=== PATIENT | male | born 1975 | race Two or more races ===

== ENCOUNTER 2016-08-12 14:29 | Emergency (ER) | payer MEDICARE, OTHER ==
[~2016-08-12] VITALS: Wt 74.5 kg
[~2016-08-12 14:29] MED LIST: ATOR40TA68 PO; ESOM40CA PO; FAMO20TA18 PO; FOLI-49 PO; GABA300C16 PO; MAGN400T28 PO; METO-448 PO; MYCO360T PO; OMEP20CA16 PO; SERT-165 PO; TACR1CAP26 PO; TAMS0.4C2 PO; ZOLP10TA PO
[2016-08-12] MEDS ORDERED: ONDANSETRON 4 MG INJ IV STA (15:25)
[2016-08-12] MEDS ORDERED: morphine 4 MG/ML VIAL IV STA (15:25)
[2016-08-12] MEDS ORDERED: SOD CHLORIDE 0.9% 1,000 ML IV ONE (15:30)
[2016-08-12 15:56] LABS: BASOPHILS % 0.4 % (0.0-2.0); EOSINOPHILS # 0.1 10^3/ul (0.0-0.5); EOSINOPHILS % 0.8 % (0.0-7.0); HEMATOCRIT 45.4 % (42.0-52.0); HEMOGLOBIN 15.3 g/dl (14.0-18.0); LYMPHOCYTES # 1.7 10^3/ul (0.8-2.9); LYMPHOCYTES % 17.9 % (15.0-51.0); MEAN CORPUSCULAR HEMOGLOBIN 28.7 pg (29.0-33.0); MEAN CORPUSCULAR HGB CONC 33.8 g/dl (32.0-37.0); MEAN PLATELET VOLUME 8.6 fl (7.4-10.4); MONOCYTE # 0.6 10^3/ul (0.3-0.9); MONOCYTES % 6.1 % (0.0-11.0); NEUTROPHIL # 7.1 10^3/ul (1.6-7.5); NEUTROPHILS % 74.8 % (39.0-77.0); PLATELET COUNT 287 10^3/UL (140-440); RED BLOOD COUNT 5.34 10^6/ul (4.70-6.10); RED CELL DISTRIBUTION WIDTH 14.6 % (11.5-14.5); UNCORRECTED WBC 9.5 10^3/ul (4.8-10.8); WHITE BLOOD COUNT 9.5 10^3/ul (4.8-10.8)
[2016-08-12 15:57] LABS: ADD UMIC NO; URINE BILIRUBIN (Dip) NEGATIVE (NEGATIVE); URINE BLOOD (Dip) NEGATIVE (NEGATIVE); URINE COLOR LT. YELLOW (YELLOW); URINE GLUCOSE (Dip) NEGATIVE (NEGATIVE); URINE KETONES (Dip) NEGATIVE (NEGATIVE); URINE LEUKOCYTE ESTERASE (Dip) NEGATIVE (NEGATIVE); URINE NITRITE (Dip) NEGATIVE (NEGATIVE); URINE TOTAL PROTEIN (Dip) NEGATIVE (NEGATIVE); URINE UROBILINOGEN (Dip) 0.2 E.U./dL (0.1-1.0)
[2016-08-12 15:58] LABS: CONDITION 1; LH ANALYZER COMMENTS 1
[2016-08-12 16:04] LABS: ALBUMIN 4.6 g/dl (3.3-4.9)
[2016-08-12 16:05] LABS: POTASSIUM 4.9 mmol/L (3.5-5.1)
[2016-08-12 16:07] LABS: ALBUMIN/GLOBULIN RATIO 1.24; BILIRUBIN,INDIRECT 0.4 mg/dl (0-1.1); BILIRUBIN,TOTAL 0.4 mg/dl (0.2-1.3); CREATININE 1.17 mg/dl (0.61-1.24); TOTAL PROTEIN 8.3 g/dl (6.1-8.1)
[2016-08-12 16:08] LABS: CALCIUM 9.8 mg/dl (8.4-10.2)
--- NOTE | 2016-08-12 17:04 | RADRPT ---
PROCEDURE: CT Abdomen and Pelvis without contrast. CLINICAL INDICATION: Abdominal pelvic pain. Nausea. Right flank pain. TECHNIQUE: CT scan of the abdomen and pelvis without contrast was performed on a multidetector hig h-resolution CT scanner. The patient was scanned without intravenous contrast. Coronal and sagittal reformatted images were obtained from the axial source images. Images were reviewed on a high-resol [employer] PACS workstation. The total exam CTDI equals 10.27 mGy and the total exam DLP equals 641.48 mG y-cm. One or more of the following dose reduction techniques were used: - Automated exposure control. - Adjustment of the mA and/or kV according to patient size. - Use of iterative reconstruction technique. COMPARISON: None. FINDINGS: CT abdomen: The lung bases are clear. The heart size is normal, without pericardial thickening or effusion. De nse calcified pleural plaque is seen in the right lung base. The liver is normal in size and densit y without focal mass or intrahepatic biliary dilatation. The spleen is normal in size and homogeneo us in density. The stomach is distended and filled with food and ingested material, but is otherwis e grossly unremarkable. The pancreas as visualized is normal. The gallbladder and biliary tree are unremarkable and there is no evidence for biliary dilatation. The adrenal glands are symmetric and normal. The [place] kidneys are symmetrically shrunken and atrophic, severe in degree. Tiny subtle punctate 2 mm right renal calculus is identified. No obstructive uropathy or mass lesion is seen. The aorta is of normal caliber. Aortic vascular calcifications are present. There is no retroperit andrea lymphadenopathy. The tj hepatis region is clear. The bowel and mesentery, as visualized, are equally unremarkable. Mesh is seen along the midline anterior abdominal wall at the periumbilica l level, likely due to prior hernia repair. CT pelvis: The small bowel loops situated within the pelvis are unremarkable. The appendix is normal. Right low er quadrant transplant kidney is identified, unremarkable in appearance. The transplant ureter is e qually unremarkable without evidence for hydronephrosis. The pelvic organs are normal. The pelvic sidewalls and inguinal regions are clear. The sigmoid colon and rectum are unremarkable. No mass o r adenopathy is seen. No free fluid is present. No acute inflammation is identified at this time. C alcifications are seen within the testes bilaterally. The surrounding osseous structures are unremarkable. No osteolytic or osteoblastic lesion is detect ed. IMPRESSION: 1. The [place] kidneys are shrunken and atrophic. 2. No mass, lymphadenopathy, or focal acute inflammatory process. 3. Unremarkable appearance of a RLQ transplant kidney. RPTAT: HMJB .Marcelo Perera MD, Date Time Electronically viewed and signed by .Marcelo Perera MD, on 08/12/2016 17:03 .B/
--- NOTE | 2016-08-12 18:49 | RADRPT ---
PROCEDURE: Scrotal ultrasound CLINICAL INDICATION: Testicular pain, abdominal pain radiating to right testis TECHNIQUE: Scrotal ultrasound was performed with sagittal and transverse views. Martinez scale and co luis felipe imaging was performed. Images were reviewed on high resolution PACS monitors. COMPARISON: 12/23/2015 FINDINGS: The right testicle measures 3.4 x 1.4 x 2.4 cm cm in dimension. Extensive testicular microlithiasis again seen. There is normal size and morphology of the right testicle with normal blood flow. The r ight epididymis is normal. No hydrocele is identified. The soft tissues are unremarkable. No mass or cyst or other abnormality is seen. There is no evidence for varicocele. The left testicle measures 3.3 x 1.7 x 2.1 cm cm in dimension. Extensive testicular microlithiasis a gain seen. There is normal size and morphology of the left testicle with normal blood flow. There is a 8 mm epididymal cyst in the left epididymal head. No hydrocele is identified. The soft tissue s are unremarkable. No mass or other abnormality is present. There is no evidence for a varicocele. 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 8 mm left epididymal cyst. No evidence of testicular torsion. Follow-up testicular ultrasound in 6 months is recommended. RPTAT: HJES .Pravin Mccarthy MD, Date Time Electronically viewed and signed by .Pravin Mccarthy MD, MD on 08/12/2016 18:49 .S/
[2016-08-12] MEDS ORDERED: ONDA4TAB8 PO (19:06)
[2016-08-12] MEDS ORDERED: CIPR500T4 PO (19:06)
[2016-08-12] MEDS ORDERED: HYDR-906 PO (19:07)
--- NOTE | 2016-08-12 19:14 | ERD ---
ER Documentation Chief Complaint Date/Time DATE: 08/12/16 TIME: 19:09 Chief Complaint RUQ ABD PAIN, NAUSEA HPI Patient is a 40-year-old male who presents to the ED with right lower quadrant abdominal pain, nausea and testicular pain. Patient states that he has a history of kidney transplant 2009. He states that he developed pain last night after he was laying down. He describes the pain as sharp in his right lower quadrant. He has not had a change in appetite, denies fever or chills. Denies vomiting or constipation. He states that he has taken [place] with some relief. He also complains of burning with urination. He denies any abnormal penile discharge. He is sexually active in a monogamous relationship. No history of STDs. He has had past UTIs. He also states that he has right testicular pain. He complains of minimal swelling in his right testicle. Denies chest pain, cough, shortness of breath or difficulty breathing. Denies leg pain or swelling. Denies headache or dizziness or weakness. ROS All systems reviewed and are negative except as per history of present illness. Medications Home Meds Active Scripts Hydrocodone/Acetaminophen ([place] 5-325 Tablet) 1 Each Tablet, 1 TAB PO Q6H Y for PAIN, #6 TAB Prov:LO RIOS PA-C 08/12/16 Ondansetron Hcl* (Zofran*) 4 Mg Tablet, 4 MG PO Q6H for NAUSEA AND/OR VOMITING, #30 TAB Prov:LO RIOS PA-C 08/12/16 Ciprofloxacin Hcl* (Ciprofloxacin Hcl*) 500 Mg Tablet, 500 MG PO BID for 7 Days , TAB Prov:LO RIOS PA-C 08/12/16 Atorvastatin* (Atorvastatin*) 40 Mg Tablet, 40 MG PO HS for 30 Days, TAB Prov:NADEEM GUO 06/12/16 Metoprolol Tartrate* (Lopressor*) 25 Mg Tab, 25 MG PO BID for 30 Days, TAB Prov:NADEEM GUO 06/12/16 Reported Medications Esomeprazole Mag Trihydrate (Nexium) 40 Mg Capsule., 40 MG PO BID, #60 CAP 06/18/16 Omeprazole* (Omeprazole*) 20 Mg Capsule., 20 MG PO DAILY, #30 CAP 06/18/16 Mycophenolate Sodium* (Myfortic*) 360 Mg Tablet.dr, 360 MG PO BID, TAB 06/18/16 Tacrolimus* (Prograf*) 1 Mg Capsule, 1 MG PO QHS, CAP 06/18/16 Tacrolimus* (Prograf*) 1 Mg Capsule, 2 MG PO QAM, CAP 06/18/16 Gabapentin* (Gabapentin*) 300 Mg Capsule, 300 MG PO TID, #90 CAP 06/08/16 Tamsulosin Hcl* (Tamsulosin Hcl*) 0.4 Mg Cap.er.24h, 0.4 MG PO HS, CAP 03/27/15 Sertraline Hcl* (Sertraline Hcl*) 100 Mg Tablet, 100 MG PO DAILY, TAB 03/27/15 Magnesium Oxide* (Magnesium Oxide*) 400 Mg Tablet, 400 MG PO BID, TAB 03/27/15 Zolpidem Tartrate* (Ambien*) 10 Mg Tablet, 10 MG PO HS Y for SLEEP, TAB 12/18/13 Folic Acid* (Folic Acid*) 1 Mg Tablet, 1 MG PO DAILY, TAB 12/18/13 Famotidine* (Famotidine*) 20 Mg Tablet, 20 MG PO DAILY 10/15/12 Allergies Allergies: Coded Allergies: No Known Allergy (Verified , 06/18/16) PMhx/Soc Medical and Surgical Hx: pt denies Medical Hx, pt denies Surgical Hx History of Surgery: Yes (r kidney transplant 2009) Anesthesia Reaction: No Hx Neurological Disorder: Yes (seizures) Hx Respiratory Disorders: No Hx Cardiac Disorders: Yes (htn) Hx Psychiatric Problems: No ( depression) Hx Miscellaneous Medical Probl: Yes (chronic diarrhea) Hx Alcohol Use: No Hx Substance Use: No Hx Tobacco Use: No Smoking Status: Never smoker Physical Exam Vitals Vital Signs Date Time Temp Pulse Resp B/P Pulse Ox O2 Delivery O2 Flow Rate FiO2 08/12/16 19:24 98.1 63 19 123/86 96 Room Air 08/12/16 14:35 98.7 108 17 118/80 98 Physical Exam GENERAL: Well-developed, well-nourished male. Appears in no acute distress. HEAD: Normocephalic, atraumatic. LUNG: Clear to auscultation bilaterally. No rhonchi, wheezing, rales or coarse breath sounds. HEART: Regular rate and rhythm. No murmurs, rubs or gallops. ABDOMEN: No scars, ecchymosis or rashes noted. Soft, and nondistended. Positive bowel sounds in all four quadrants. No rebound tenderness, no guarding. McBurney s point tenderness. No CVA tenderness. tenderness in mid abdominal region. : slight testicular right pain. no redness or erythema or drainage. BACK: No midline tenderness. Extremities: Equal pulses bilaterally. No peripheral clubbing, cyanosis or edema. No unilateral leg swelling. NEUROLOGIC: Alert and oriented. Moving all four extremities. 5/5 strength in all extremities. Normal speech. Steady gait. SKIN: Normal color. Warm and dry. No rashes or lesions. Capillary refill < 2 seconds Result Diagram: 08/12/16 1500 08/12/16 1500 Results 24 hrs Laboratory Tests Test 08/12/16 15:00 Alanine Aminotransferase (ALT/SGPT) 33IU/L Albumin 4.6g/dl Albumin/Globulin Ratio 1.24 Alkaline Phosphatase 101IU/L Anion Gap 18 Aspartate Amino Transf (AST/SGOT) 26IU/L Basophils # 0.010^3/ul Basophils % 0.4% Blood Morphology Comment Blood Urea Nitrogen 16mg/dl Calcium Level 9.8mg/dl Carbon Dioxide Level 25mmol/L Chloride Level 104mmol/L Creatinine 1.17mg/dl Direct Bilirubin 0.00mg/dl Eosinophils # 0.110^3/ul Eosinophils % 0.8% Globulin 3.70g/dl Glucose Level 105mg/dl Hematocrit 45.4% Hemoglobin 15.3g/dl Indirect Bilirubin 0.4mg/dl Lipase 137U/L Lymphocytes # 1.710^3/ul Lymphocytes % 17.9% Mean Corpuscular Hemoglobin 28.7pg Mean Corpuscular Hemoglobin Concent 33.8g/dl Mean Corpuscular Volume 85.0fl Mean Platelet Volume 8.6fl Monocytes # 0.610^3/ul Monocytes % 6.1% Neutrophils # 7.110^3/ul Neutrophils % 74.8% Nucleated Red Blood Cells # 0.010^3/ul Nucleated Red Blood Cells % 0.0/100WBC Platelet Count 97752^3/UL Potassium Level 4.9mmol/L Red Blood Count 5.3410^6/ul Red Cell Distribution Width 14.6% Sodium Level 142mmol/L Total Bilirubin 0.4mg/dl Total Protein 8.3g/dl Urine Bilirubin NEGATIVE Urine Clarity CLEAR Urine Color LT. YELLOW Urine Glucose NEGATIVE% Urine Hemoglobin NEGATIVE Urine Ketones NEGATIVE Urine Leukocyte Esterase NEGATIVE Urine Nitrite NEGATIVE Urine Specific [place] 1.010 Urine Total Protein NEGATIVE Urine Urobilinogen 0.2 E.U./dL Urine pH 7.0 White Blood Count 9.510^3/ul Current Medications Medications (Trade) Dose Ordered Sig/Marcelino Route PRN Reason Start Time Stop Time Status Last Admin Dose Admin Morphine Sulfate (morphine) 4 mg ONCE STAT IV 08/12/16 15:25 08/12/16 15:28 DC 08/12/16 15:43 Ondansetron HCl 4 mg 4 mg ONCE STAT IV 08/12/16 15:25 08/12/16 15:28 DC 08/12/16 15:43 Sodium Chloride (NS) 1,000 ml @ 1,000 mls/hr Q1H ONCE IV 08/12/16 15:30 08/12/16 16:29 DC 08/12/16 15:43 Procedures/MDM ER COURSE: I kept the patient and/or family informed of laboratory and diagnostic imaging results throughout the emergency room course. EKG, MONITORS, & DIAGNOSTIC IMAGING: [place] [id number] Radiology Main Line: [phone] DIAGNOSTIC IMAGING REPORT Patient: HANNA MONTERO : 1975 Age: 40 Sex: M MR #: [id number] DOS: 08/12/16 1709 Ordering MD: LO RIOS PA-C Location: [facility] Room/Bed: PROCEDURE: Scrotal ultrasound CLINICAL INDICATION: Testicular pain, abdominal pain radiating to right testis TECHNIQUE: Scrotal ultrasound was performed with sagittal and transverse views. Martinez scale and color imaging was performed. Images were reviewed on high resolution PACS monitors. COMPARISON: 12/23/2015 FINDINGS: The right testicle measures 3.4 x 1.4 x 2.4 cm cm in dimension. Extensive testicular microlithiasis again seen. There is normal size and morphology of the right testicle with normal blood flow. The right epididymis is normal. No hydrocele is identified. The soft tissues are unremarkable. No mass or cyst or other abnormality is seen. There is no evidence for varicocele. The left testicle measures 3.3 x 1.7 x 2.1 cm cm in dimension. Extensive testicular microlithiasis again seen. There is normal size and morphology of the left testicle with normal blood flow. There is a 8 mm epididymal cyst in the left epididymal head. No hydrocele is identified. The soft tissues are unremarkable. No mass or other abnormality is present. There is no evidence for a varicocele. 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 8 mm left epididymal cyst. No evidence of testicular torsion. Follow-up testicular ultrasound in 6 months is recommended. RPTAT: HJES .Pravin Mccarthy MD, Date Time Electronically viewed and signed by .Pravin Mccarthy MD, MD on 08/12/2016 18:49 .S/ CC: LO RIOS PA-C [place] [id number] Radiology Main Line: [phone] DIAGNOSTIC IMAGING REPORT Patient: HANNA MONTERO : 1975 Age: 40 Sex: M MR #: [id number] DOS: 08/12/16 1525 Ordering MD: LO RIOS PA-C Location: [facility] Room/Bed: PROCEDURE: CT Abdomen and Pelvis without contrast. CLINICAL INDICATION: Abdominal pelvic pain. Nausea. Right flank pain. TECHNIQUE: CT scan of the abdomen and pelvis without contrast was performed on a multidetector high-resolution CT scanner. The patient was scanned without intravenous contrast. Coronal and sagittal reformatted images were obtained from the axial source images. Images were reviewed on a high-resolution PACS workstation. The total exam CTDI equals 10.27 mGy and the total exam DLP equals 641.48 mGy-cm. One or more of the following dose reduction techniques were used: - Automated exposure control. - Adjustment of the mA and/or kV according to patient size. - Use of iterative reconstruction technique. COMPARISON: None. FINDINGS: CT abdomen: The lung bases are clear. The heart size is normal, without pericardial thickening or effusion. Dense calcified pleural plaque is seen in the right lung base. The liver is normal in size and density without focal mass or intrahepatic biliary dilatation. The spleen is normal in size and homogeneous in density. The stomach is distended and filled with food and ingested material , but is otherwise grossly unremarkable. The pancreas as visualized is normal. The gallbladder and biliary tree are unremarkable and there is no evidence for biliary dilatation. The adrenal glands are symmetric and normal. The [place] kidneys are symmetrically shrunken and atrophic, severe in degree. Tiny subtle punctate 2 mm right renal calculus is identified. No obstructive uropathy or mass lesion is seen. The aorta is of normal caliber. Aortic vascular calcifications are present. There is no retroperitoneal lymphadenopathy. The tj hepatis region is clear. The bowel and mesentery, as visualized, are equally unremarkable. Mesh is seen along the midline anterior abdominal wall at the periumbilical level, likely due to prior hernia repair. CT pelvis: The small bowel loops situated within the pelvis are unremarkable. The appendix is normal. Right lower quadrant transplant kidney is identified, unremarkable in appearance. The transplant ureter is equally unremarkable without evidence for hydronephrosis. The pelvic organs are normal. The pelvic sidewalls and inguinal regions are clear. The sigmoid colon and rectum are unremarkable. No mass or adenopathy is seen. No free fluid is present. No acute inflammation is identified at this time. Calcifications are seen within the testes bilaterally. The surrounding osseous structures are unremarkable. No osteolytic or osteoblastic lesion is detected. IMPRESSION: 1. The [place] kidneys are shrunken and atrophic. 2. No mass, lymphadenopathy, or focal acute inflammatory process. 3. Unremarkable appearance of a RLQ transplant kidney. RPTAT: HMJB .Marcelo Perera MD, Date Time Electronically viewed and signed by .Marcelo Perera MD, MD on 08/12/2016 17:03 .B/ CC: LO RIOS PA-C PROCEDURES: IV fluids, morphine, Zofran. Patient tolerated occasional with no adverse reaction. Patient seen improvement in symptoms per LAB INTERPRETATION: CBC showed no evidence of systemic infection or severe anemia. CMP showed no evidence of electrolyte abnormalities, severe acidosis, alkalosis , renal failure, or liver disease. Lipase showed no evidence of acute pancreatitis. UA showed no evidence of acute infection or hematuria. MEDICAL DECISION MAKING: This is a 40-year-old male who presents with abdominal pain and testicular pain. Vital signs were reviewed. Patient is afebrile. Patient is not hypoxic. Patient is not toxic or ill-appearing. Patient has abdominal pain of uncertain etiology. Low suspicion for ACS, AAA, perforated ulcer, bowel obstruction, cholecystitis, choledocholithiasis, cholangitis, pancreatitis, hepatic abscess, appendicitis, diverticulitis. Low suspicion for ACS, PE, AAA, dissection, DVT. Patient also has likely epidiymitis. low suspicion for pyelonephritis, UTI, nephrolithiasis, appendicitis, testicular torsion, incarcerated or strangulated hernia. DISCHARGE: At this time, patient is stable for discharge and outpatient management with no new complaints during the ER course. Patient was sent home with ciprofloxacin, Zofran and [place]. I explained results to patient and advised him to follow up with a urologist regarding his testiclar pain and microlithiasis. Repeat ultrasound in 6 months is recommended. Patient will be discharged home with instructions to recheck for new or worsening symptoms such as fever, nausea, weakness, LOC and to follow up with primary care in the next 1-2 days. Patient was advised to return to the ER for any new or worsening symptoms. Plan was discussed and patient and/or family understands and agrees. Home instructions were given. Departure Diagnosis: Primary Impression: Testicular pain, right Additional Impression: Abdominal pain Abdominal location: unspecified location Qualified Code: R10.9 - Abdominal pain, unspecified location Condition: Stable Patient Instructions: Abdominal Pain, Epididymitis Additional Instructions: Call your primary care doctor TOMORROW for an appointment during the next 1-2 days.See the doctor sooner or return here if your condition worsens before your appointment time. LO RIOS PA-C Aug 12, 2016 19:14
[2016-08-12 19:24] VITALS: BP 123/86; PULSE 63; RESP 19; TEMP 98.1
== END 2016-08-12 19:25 | disposition home or self-care (01) ==
LOC: FTE 14:29
DX: N50.811 Right testicular pain (principal); R10.31 Right lower quadrant pain; R11.0 Nausea; I10 Essential (primary) hypertension
CPT/HCPCS: 36415; 74176; 76870; 80053; 81003; 83690; 85025; 96374; 96375; 99285; J2270; J2405; J7030

== ENCOUNTER 2016-09-07 03:35 | Emergency (ER) | payer MEDICARE ==
[~2016-09-07] VITALS: Ht 165.1 cm; Wt 76.5 kg
[~2016-09-07 03:35] MED LIST changes: +CIPR500T4 PO; +HYDR-906 PO; +ONDA4TAB8 PO
[2016-09-07 03:41] VITALS: Ht 165.1 cm; Wt 76.5 kg
[2016-09-07] MEDS ORDERED: ONDANSETRON 4 MG INJ IV STA (06:33)
[2016-09-07] MEDS ORDERED: FAMOTIDINE 20 MG INJ IV STA (06:33)
[2016-09-07] MEDS ORDERED: morphine 4 MG/ML VIAL IV STA (06:33)
[2016-09-07 07:26] LABS: ADD UMIC NO; URINE BILIRUBIN (Dip) NEGATIVE (NEGATIVE); URINE BLOOD (Dip) NEGATIVE (NEGATIVE); URINE COLOR LT. YELLOW (YELLOW); URINE GLUCOSE (Dip) NEGATIVE (NEGATIVE); URINE KETONES (Dip) NEGATIVE (NEGATIVE); URINE LEUKOCYTE ESTERASE (Dip) NEGATIVE (NEGATIVE); URINE NITRITE (Dip) NEGATIVE (NEGATIVE); URINE TOTAL PROTEIN (Dip) NEGATIVE (NEGATIVE); URINE UROBILINOGEN (Dip) 0.2 E.U./dL (0.1-1.0)
[2016-09-07 07:31] LABS: BASOPHILS % 0.3 % (0.0-2.0); EOSINOPHILS # 0.2 10^3/ul (0.0-0.5); EOSINOPHILS % 1.6 % (0.0-7.0); HEMATOCRIT 47.8 % (42.0-52.0); HEMOGLOBIN 16.2 g/dl (14.0-18.0); LYMPHOCYTES # 2.5 10^3/ul (0.8-2.9); LYMPHOCYTES % 22.4 % (15.0-51.0); MEAN CORPUSCULAR HEMOGLOBIN 29.1 pg (29.0-33.0); MEAN CORPUSCULAR HGB CONC 33.9 g/dl (32.0-37.0); MEAN CORPUSCULAR VOLUME 85.8 fl (82.0-101.0); MEAN PLATELET VOLUME 9.3 fl (7.4-10.4); MONOCYTES % 8.5 % (0.0-11.0); NEUTROPHIL # 7.6 10^3/ul (1.6-7.5); NEUTROPHILS % 67.2 % (39.0-77.0); PLATELET COUNT 252 10^3/UL (140-440); RED BLOOD COUNT 5.57 10^6/ul (4.70-6.10); RED CELL DISTRIBUTION WIDTH 14.2 % (11.5-14.5); UNCORRECTED WBC 11.3 10^3/ul (4.8-10.8); WHITE BLOOD COUNT 11.3 10^3/ul (4.8-10.8)
--- NOTE | 2016-09-07 07:36 | RADRPT ---
PROCEDURE: CT Abdomen and Pelvis without contrast. CLINICAL INDICATION: Abdominal pain. TECHNIQUE: Routine axial tomographic images of the abdomen and pelvis were obtained from the domes the diaphragm to the symphysis pubis. The patient was scanned withoutoral or intravenous contrast. Coronal and sagittal reformatted images were obtained from the axial source images. Images were re viewed on a high-resolution PACS workstation. The total exam CTDI equals 11.27 mGy and the total exa m DLP equals 707.13 mGy-cm. One or more of the following dose reduction techniques were used: Auto mated exposure control, adjustment of the mA and / or kV according to patient size, or use of iterat jean reconstruction technique. COMPARISON: CT abdomen and pelvis dated 08/12/2016 FINDINGS: The visualized portions of the lung bases are clear. Evaluation of the intra-abdominal solid or sher is somewhat limited on this noncontrast examination. Dystrophic calcifications are seen along the right diaphragm. The liver appears normal in size. There is no intra or extrahepatic biliary d ilatation. The gallbladder is unremarkable by CT criteria. The spleen, pancreas, and adrenal gland s are unremarkable. The kidneys are markedly atrophic. There is a right lower quadrant transplant kidney No renal, ure teral, or bladder calculi are identified. No perinephric inflammatory changes are identified. The u rinary bladder is grossly unremarkable. The bowel demonstrates normal course and caliber. There is no evidence of bowel obstruction. The a ppendix is normal in appearance. The pelvic organs are grossly unremarkable. No intraperitoneal fr ee fluid, free air, or abscess is identified. No retroperitoneal, mesenteric, or inguinal lymphadeno jad is identified. The aorta is normal in caliber. There is a small fat-containing right inguinal hernia. The osseous structures are unremarkable. No significant subcutaneous soft tissue abnormalities are seen. IMPRESSION: 1. Limited noncontrast CT of the abdomen and pelvis. No acute intra-abdominal abnormality identifi ed. 2. Right lower quadrant transplant kidney with marked atrophy of the [place] kidneys. RPTAT: HH .Dory Soto MD, MD Date Time Electronically viewed and signed by .Dory Soto MD, on 09/07/2016 07:36 .Stephen
[2016-09-07 07:44] LABS: ALBUMIN 4.6 g/dl (3.3-4.9)
[2016-09-07 07:47] LABS: ALBUMIN/GLOBULIN RATIO 1.27; BILIRUBIN,INDIRECT 0.2 mg/dl (0-1.1); BILIRUBIN,TOTAL 0.2 mg/dl (0.2-1.3); CREATININE 1.18 mg/dl (0.61-1.24); TOTAL PROTEIN 8.2 g/dl (6.1-8.1)
[2016-09-07 07:48] LABS: CALCIUM 9.9 mg/dl (8.4-10.2)
[2016-09-07] MEDS ORDERED: METOCLOPRAMIDE 10 MG INJ IV ONE (08:00)
[2016-09-07 08:23] LABS: CONDITION 1
--- NOTE | 2016-09-07 08:27 | ERD ---
ER Documentation Chief Complaint Date/Time DATE: 09/07/16 TIME: 08:26 Chief Complaint abdominal pain x 2 days. also c/o vomiting/diarrhea HPI This is a 40-year-old male who presents to the emergency room for evaluation of abdominal cramping, diarrhea, nausea and vomiting for the past 2 days. The patient states that he is having watery diarrhea. [id number], no recent travel. The patient states that he came to the ER for evaluation. He is localizing a cramping all over his abdomen. ROS All systems reviewed and are negative except as per history of present illness. Medications Home Meds Active Scripts Hydrocodone/Acetaminophen ([place] 5-325 Tablet) 1 Each Tablet, 1 TAB PO Q6H Y for PAIN, #6 TAB Prov:LO RIOS PA-C 08/12/16 Ondansetron Hcl* (Zofran*) 4 Mg Tablet, 4 MG PO Q6H for NAUSEA AND/OR VOMITING, #30 TAB Prov:LO RIOS PA-C 08/12/16 Ciprofloxacin Hcl* (Ciprofloxacin Hcl*) 500 Mg Tablet, 500 MG PO BID for 7 Days , TAB Prov:LO RIOS PA-C 08/12/16 Atorvastatin* (Atorvastatin*) 40 Mg Tablet, 40 MG PO HS for 30 Days, TAB Prov:NADEEM GUO 06/12/16 Metoprolol Tartrate* (Lopressor*) 25 Mg Tab, 25 MG PO BID for 30 Days, TAB Prov:NADEEM GUO 06/12/16 Reported Medications Esomeprazole Mag Trihydrate (Nexium) 40 Mg Capsule.dr, 40 MG PO BID, #60 CAP 06/18/16 Omeprazole* (Omeprazole*) 20 Mg Capsule.dr, 20 MG PO DAILY, #30 CAP 06/18/16 Mycophenolate Sodium* (Myfortic*) 360 Mg Tablet.dr, 360 MG PO BID, TAB 06/18/16 Tacrolimus* (Prograf*) 1 Mg Capsule, 1 MG PO QHS, CAP 06/18/16 Tacrolimus* (Prograf*) 1 Mg Capsule, 2 MG PO QAM, CAP 06/18/16 Gabapentin* (Gabapentin*) 300 Mg Capsule, 300 MG PO TID, #90 CAP 06/08/16 Tamsulosin Hcl* (Tamsulosin Hcl*) 0.4 Mg Cap.er.24h, 0.4 MG PO HS, CAP 03/27/15 Sertraline Hcl* (Sertraline Hcl*) 100 Mg Tablet, 100 MG PO DAILY, TAB 03/27/15 Magnesium Oxide* (Magnesium Oxide*) 400 Mg Tablet, 400 MG PO BID, TAB 03/27/15 Zolpidem Tartrate* (Ambien*) 10 Mg Tablet, 10 MG PO HS Y for SLEEP, TAB 12/18/13 Folic Acid* (Folic Acid*) 1 Mg Tablet, 1 MG PO DAILY, TAB 12/18/13 Famotidine* (Famotidine*) 20 Mg Tablet, 20 MG PO DAILY 10/15/12 Allergies Allergies: Coded Allergies: No Known Allergy (Verified , 09/07/16) PMhx/Soc History of Surgery: Yes (r kidney transplant 2009) Anesthesia Reaction: No Hx Neurological Disorder: Yes (seizures) Hx Respiratory Disorders: No Hx Cardiac Disorders: Yes (htn) Hx Psychiatric Problems: No ( depression) Hx Miscellaneous Medical Probl: Yes (chronic diarrhea) Hx Alcohol Use: No Hx Substance Use: No Hx Tobacco Use: No Physical Exam Vitals Vital Signs Date Time Temp Pulse Resp B/P Pulse Ox O2 Delivery O2 Flow Rate FiO2 09/07/16 03:41 97.7 92 20 133/91 99 Physical Exam INITIAL VITAL SIGNS: Reviewed by me GENERAL: The patient is well developed and appropriate for usual state of health in no apparent distress HEENT: Pupils equal, round, and reactive to light. EOMI. There is no scleral icterus. NECK: C-spine is soft and supple, there is no meningismus. There is no cervical lymphadenopathy. LUNGS: Clear to auscultation bilaterally. There are no rales, wheezes or rhonchi. HEART: Regular rate and rhythm, no murmurs, clicks, rubs or gallops. ABDOMEN: Soft, non-tender, non-distended. There are bowel sounds in all four quadrants. No rebound or guarding. EXTREMITIES: There is no peripheral cyanosis or edema. No focal swelling or erythema. NEUROLOGICAL: The patient moves all four extremities with 5/5 strength. Cranial nerves II - XII are intact. Normal gait. Alert and oriented SKIN: There is no apparent rash or petechiae. HEME/LYMPHATIC: There is no evidence of excessive bruising or lymphedema. PSYCHIATRIC: The patient does not appear anxious or depressed. Result Diagram: 09/07/16 0638 09/07/16 0638 Results 24 hrs Laboratory Tests Test 09/07/16 06:38 09/07/16 07:00 Alanine Aminotransferase (ALT/SGPT) 31IU/L Albumin 4.6g/dl Albumin/Globulin Ratio 1.27 Alkaline Phosphatase 95IU/L Anion Gap 19 Aspartate Amino Transf (AST/SGOT) 31IU/L Basophils # 0.010^3/ul Basophils % 0.3% Blood Urea Nitrogen 22mg/dl Calcium Level 9.9mg/dl Carbon Dioxide Level 25mmol/L Chloride Level 101mmol/L Creatinine 1.18mg/dl Direct Bilirubin 0.00mg/dl Eosinophils # 0.210^3/ul Eosinophils % 1.6% Globulin 3.60g/dl Glucose Level 85mg/dl Hematocrit 47.8% Hemoglobin 16.2g/dl Indirect Bilirubin 0.2mg/dl Lipase 95U/L Lymphocytes # 2.510^3/ul Lymphocytes % 22.4% Mean Corpuscular Hemoglobin 29.1pg Mean Corpuscular Hemoglobin Concent 33.9g/dl Mean Corpuscular Volume 85.8fl Mean Platelet Volume 9.3fl Monocytes # 1.010^3/ul Monocytes % 8.5% Neutrophils # 7.610^3/ul Neutrophils % 67.2% Nucleated Red Blood Cells # 0.010^3/ul Nucleated Red Blood Cells % 0.0/100WBC Platelet Count 12419^3/UL Potassium Level 4.0mmol/L Red Blood Count 5.5710^6/ul Red Cell Distribution Width 14.2% Sodium Level 141mmol/L Total Bilirubin 0.2mg/dl Total Protein 8.2g/dl White Blood Count 11.310^3/ul Urine Bilirubin NEGATIVE Urine Clarity CLEAR Urine Color LT. YELLOW Urine Glucose NEGATIVE% Urine Hemoglobin NEGATIVE Urine Ketones NEGATIVE Urine Leukocyte Esterase NEGATIVE Urine Nitrite NEGATIVE Urine Specific [place] <=1.005 Urine Total Protein NEGATIVE Urine Urobilinogen 0.2 E.U./dL Urine pH 6.5 Current Medications Medications (Trade) Dose Ordered Sig/Marcelino Route PRN Reason Start Time Stop Time Status Last Admin Dose Admin Morphine Sulfate (morphine) 4 mg ONCE STAT IV 09/07/16 06:33 2/3/17 06:35 DC 09/07/16 07:02 Ondansetron HCl (Zofran Inj) 4 mg ONCE STAT IV 09/07/16 06:33 09/07/16 06:35 DC 09/07/16 07:02 Famotidine (Pepcid Iv) 20 mg ONCE STAT IV 09/07/16 06:33 09/07/16 06:35 DC 09/07/16 07:02 Metoclopramide HCl (Reglan) 10 mg ONCE ONCE IV 09/07/16 08:00 09/07/16 08:01 DC 09/07/16 08:02 Procedures/MDM CT abdomen pelvis without: 1. Limited noncontrast CT of the abdomen and pelvis. No acute intra-abdominal abnormality identified. 2. Right lower quadrant transplant kidney with marked atrophy of the [place] kidneys. This 40-year-old male presents to the ER for evaluation of abdominal cramping, nausea, vomiting or diarrhea. The patient does have a history of renal transplant, is on CellCept and Prograf. The patient has been taking medications as prescribed however is been having nausea, vomiting and diarrhea which she describes as watery diarrhea. No blood in the vomit. This patient had lab work drawn and a CAT scan which were essentially normal. The patient was given Zofran and Reglan. Pulmonary evaluation he is sleeping comfortably no acute distress. He is hemodynamically stable at this time, no signs of severe dehydration. The patient will be discharged home with a prescription for Zofran. Differential diagnoses entertained was broad with potential high acuity. Patient has been evaluated for appendicitis, cholecystitis, and other high risk medical and surgical causes of abdominal pain. Ultimately the patient 's evaluation is nondiagnostic. Based on the patient's lack of risk factors, as well as the patient's clinical, laboratory, and imaging data, the patient appears to be low risk for these high risk causes of abdominal pain. Departure Diagnosis: Primary Impression: Nausea vomiting and diarrhea Condition: Stable BHAVYA PETERSEN DO Sep 07, 2016 08:27
[2016-09-07] MEDS ORDERED: METO10TA92 PO (08:32)
[2016-09-07 09:58] VITALS: BP 108/69; PULSE 74; RESP 20
== END 2016-09-07 10:01 | disposition home or self-care (01) ==
LOC: E/R 03:35
DX: R11.2 Nausea with vomiting, unspecified (principal); R19.7 Diarrhea, unspecified; I10 Essential (primary) hypertension
CPT/HCPCS: 74176; 80053; 81003; 83690; 85025; J2270; J2405; J2765; 36415; 96374; 96375

== ENCOUNTER 2016-09-18 20:29 | Emergency (ER) | payer MEDICARE ==
[~2016-09-18] VITALS: Ht 162.6 cm; Wt 77.0 kg
[~2016-09-18 20:29] MED LIST changes: +METO10TA92 PO
[2016-09-18 21:04] VITALS: Ht 162.6 cm; Wt 77.0 kg
[2016-09-19] MEDS ORDERED: ASPIRIN 81 MG TAB PO STA
[2016-09-19 00:43] LABS: BASOPHILS % 0.3 % (0.0-2.0); EOSINOPHILS # 0.2 10^3/ul (0.0-0.5); EOSINOPHILS % 1.4 % (0.0-7.0); HEMATOCRIT 45.4 % (42.0-52.0); HEMOGLOBIN 15.3 g/dl (14.0-18.0); LYMPHOCYTES # 2.3 10^3/ul (0.8-2.9); LYMPHOCYTES % 18.7 % (15.0-51.0); MEAN CORPUSCULAR HEMOGLOBIN 28.5 pg (29.0-33.0); MEAN CORPUSCULAR HGB CONC 33.6 g/dl (32.0-37.0); MEAN CORPUSCULAR VOLUME 84.7 fl (82.0-101.0); MONOCYTES % 8.2 % (0.0-11.0); NEUTROPHIL # 8.6 10^3/ul (1.6-7.5); NEUTROPHILS % 71.4 % (39.0-77.0); PLATELET COUNT 265 10^3/UL (140-440); RED BLOOD COUNT 5.36 10^6/ul (4.70-6.10); RED CELL DISTRIBUTION WIDTH 14.3 % (11.5-14.5); UNCORRECTED WBC 12.1 10^3/ul (4.8-10.8); WHITE BLOOD COUNT 12.1 10^3/ul (4.8-10.8)
[2016-09-19 00:52] LABS: INR 1.03; PROTIME 13.5 Sec (12.2-14.2); PT RATIO 1.1
[2016-09-19 00:53] LABS: PARTIAL THROMBOPLASTIN TIME 26.9 Sec (25.0-35.0)
[2016-09-19 00:58] LABS: CONDITION 1
[2016-09-19 01:04] LABS: ALBUMIN 4.8 g/dl (3.3-4.9); CHLORIDE 100 mmol/L (97-110)
[2016-09-19 01:05] LABS: POTASSIUM 3.9 mmol/L (3.5-5.1); SODIUM 139 mmol/L (135-144)
[2016-09-19 01:07] LABS: ALBUMIN/GLOBULIN RATIO 1.41; ALKALINE PHOSPHATASE 101 IU/L (42-121); ANION GAP 18 (8-16); ASPARTATE AMINO TRANSFERASE 35 IU/L (15-46); BILIRUBIN,INDIRECT 0.1 mg/dl (0-1.1); BILIRUBIN,TOTAL 0.1 mg/dl (0.2-1.3); BLOOD UREA NITROGEN 18 mg/dl (7-20); CARBON DIOXIDE 25 mmol/L (21-31); CREATININE 0.92 mg/dl (0.61-1.24); TOTAL PROTEIN 8.2 g/dl (6.1-8.1)
[2016-09-19 01:08] LABS: ALANINE AMINOTRANSFERASE 42 IU/L (13-69); CALCIUM 9.8 mg/dl (8.4-10.2); GLUCOSE 92 mg/dl (70-220)
[2016-09-19 01:16] LABS: B-TYPE NATRIURETIC PEPTIDE 55 PG/ML (0-125)
[2016-09-19 01:22] LABS: TROPONIN-I < 0.012 ng/ml (0.00-0.12)
[2016-09-19] MEDS ORDERED: morphine 4 MG/ML VIAL IV STA (01:26)
[2016-09-19] MEDS ORDERED: ONDANSETRON 4 MG INJ IV STA (01:26)
--- NOTE | 2016-09-19 03:31 | ERD ---
ER Documentation Chief Complaint Date/Time DATE: 09/19/16 TIME: 03:30 Chief Complaint CP WITH RADICULAR ARM PAIN X 3 DAYS HPI This is a 40-year-old male chest pain with radicular arm pain for 3 days. Chest pain is sharp, right-sided, nonexertional and non-positional no exacerbating or alleviating factors. No other current complaints. Patient has a previous cardiac workup a few months ago which showed an relatively normal Lexiscan and negative cardiac enzymes. ROS All systems reviewed and are negative except as per history of present illness. Medications Home Meds Active Scripts Metoclopramide* (Reglan*) 10 Mg Tablet, 10 MG PO Q6 Y for NAUSEA AND/OR VOMITING , #10 TAB Prov:BHAVYA PETERSEN DO 09/07/16 Hydrocodone/Acetaminophen ([place] 5-325 Tablet) 1 Each Tablet, 1 TAB PO Q6H Y for PAIN, #6 TAB Prov:LO RIOS-C 08/12/16 Ondansetron Hcl* (Zofran*) 4 Mg Tablet, 4 MG PO Q6H for NAUSEA AND/OR VOMITING, #30 TAB Prov:LO RIOS-C 08/12/16 Ciprofloxacin Hcl* (Ciprofloxacin Hcl*) 500 Mg Tablet, 500 MG PO BID for 7 Days , TAB Prov:LO RIOS-C 08/12/16 Atorvastatin* (Atorvastatin*) 40 Mg Tablet, 40 MG PO HS for 30 Days, TAB Prov:NADEEM GUO 06/12/16 Metoprolol Tartrate* (Lopressor*) 25 Mg Tab, 25 MG PO BID for 30 Days, TAB Prov:NADEEM GUO 06/12/16 Reported Medications Esomeprazole Mag Trihydrate (Nexium) 40 Mg Capsule.dr, 40 MG PO BID, #60 CAP 06/18/16 Omeprazole* (Omeprazole*) 20 Mg Capsule.dr, 20 MG PO DAILY, #30 CAP 06/18/16 Mycophenolate Sodium* (Myfortic*) 360 Mg Tablet.dr, 360 MG PO BID, TAB 06/18/16 Tacrolimus* (Prograf*) 1 Mg Capsule, 1 MG PO QHS, CAP 06/18/16 Tacrolimus* (Prograf*) 1 Mg Capsule, 2 MG PO QAM, CAP 06/18/16 Gabapentin* (Gabapentin*) 300 Mg Capsule, 300 MG PO TID, #90 CAP 06/08/16 Tamsulosin Hcl* (Tamsulosin Hcl*) 0.4 Mg Cap.er.24h, 0.4 MG PO HS, CAP 03/27/15 Sertraline Hcl* (Sertraline Hcl*) 100 Mg Tablet, 100 MG PO DAILY, TAB 03/27/15 Magnesium Oxide* (Magnesium Oxide*) 400 Mg Tablet, 400 MG PO BID, TAB 03/27/15 Zolpidem Tartrate* (Ambien*) 10 Mg Tablet, 10 MG PO HS Y for SLEEP, TAB 12/18/13 Folic Acid* (Folic Acid*) 1 Mg Tablet, 1 MG PO DAILY, TAB 12/18/13 Famotidine* (Famotidine*) 20 Mg Tablet, 20 MG PO DAILY 10/15/12 Allergies Allergies: Coded Allergies: No Known Allergy (Verified , 09/07/16) PMhx/Soc History of Surgery: Yes (r kidney transplant 2009, hernia repair, hip surgery, fistula in past) Anesthesia Reaction: No Hx Neurological Disorder: Yes (seizures) Hx Respiratory Disorders: No Hx Cardiac Disorders: Yes (htn- resolved w/ transplant) Hx Psychiatric Problems: Yes ( depression) Hx Miscellaneous Medical Probl: Yes (chronic diarrhea) Hx Alcohol Use: No Hx Substance Use: No Hx Tobacco Use: No Smoking Status: Unknown if ever smoked Physical Exam Vitals Vital Signs Date Time Temp Pulse Resp B/P Pulse Ox O2 Delivery O2 Flow Rate FiO2 09/19/16 02:27 77 18 130/106 98 Room Air 09/19/16 01:17 2 09/19/16 00:19 74 20 129/100 99 Room Air 09/18/16 21:04 98.8 105 20 137/100 96 Physical Exam Const: [] Head: Atraumatic Eyes: Normal Conjunctiva ENT: Normal External Ears, Nose and Mouth. Neck: Full range of motion..~ No meningismus. Resp: Clear to auscultation bilaterally Cardio: Regular rate and rhythm, no murmurs Abd: Soft, non tender, non distended. Normal bowel sounds Skin: No petechiae or rashes Back: No midline or flank tenderness Ext: No cyanosis, or edema Neur: Awake and alert Psych: Normal Mood and Affect Result Diagram: 09/19/16 0010 09/19/16 0010 Results 24 hrs Laboratory Tests Test 09/19/16 00:10 Activated Partial Thromboplast Time 26.9Sec Alanine Aminotransferase (ALT/SGPT) 42IU/L Albumin 4.8g/dl Albumin/Globulin Ratio 1.41 Alkaline Phosphatase 101IU/L Anion Gap 18 Aspartate Amino Transf (AST/SGOT) 35IU/L B-Type Natriuretic Peptide 55PG/ML Basophils # 0.010^3/ul Basophils % 0.3% Blood Morphology Comment Blood Urea Nitrogen 18mg/dl Calcium Level 9.8mg/dl Carbon Dioxide Level 25mmol/L Chloride Level 100mmol/L Creatinine 0.92mg/dl Direct Bilirubin 0.00mg/dl Eosinophils # 0.210^3/ul Eosinophils % 1.4% Globulin 3.40g/dl Glucose Level 92mg/dl Hematocrit 45.4% Hemoglobin 15.3g/dl INR International Normalized Ratio 1.03 Indirect Bilirubin 0.1mg/dl Lymphocytes # 2.310^3/ul Lymphocytes % 18.7% Mean Corpuscular Hemoglobin 28.5pg Mean Corpuscular Hemoglobin Concent 33.6g/dl Mean Corpuscular Volume 84.7fl Mean Platelet Volume 9.0fl Monocytes # 1.010^3/ul Monocytes % 8.2% Neutrophils # 8.610^3/ul Neutrophils % 71.4% Nucleated Red Blood Cells # 0.010^3/ul Nucleated Red Blood Cells % 0.0/100WBC Platelet Count 14492^3/UL Potassium Level 3.9mmol/L Prothrombin Time 13.5Sec Prothrombin Time Ratio 1.1 Red Blood Count 5.3610^6/ul Red Cell Distribution Width 14.3% Sodium Level 139mmol/L Total Bilirubin 0.1mg/dl Total Protein 8.2g/dl Troponin I < 0.012ng/ml White Blood Count 12.110^3/ul Current Medications Medications (Trade) Dose Ordered Sig/Marcelino Route PRN Reason Start Time Stop Time Status Last Admin Dose Admin Aspirin (Aspirin) 162 mg ONCE STAT PO 09/19/16 00:00 09/19/16 00:06 DC 09/19/16 00:22 Morphine Sulfate (morphine) 4 mg ONCE STAT IV 09/19/16 01:26 09/19/16 01:27 DC 09/19/16 01:29 Ondansetron HCl (Zofran Inj) 4 mg ONCE STAT IV 09/19/16 01:26 09/19/16 01:27 DC 09/19/16 01:29 Procedures/MDM EKG: Rate/Rhythm: Normal Sinus Rhythm QRS, ST, T-waves: No changes consistent w/ acute ischemia Impression: No evidence of ischemia or arrhythmia Chest X-ray 1V Interpreted by me: Soft Tissue: No acute abnormalities Bones: No acute abnormalities Mediastinum/Cardiac Silhouette/Lungs: No acute abnormalities Patient's thoracic symptoms have stabilized while in the department and are stable for outpatient follow up. Exam and work up not consistent w/ ischemia, arrhythmia, PE or dissection. Departure Diagnosis: Primary Impression: Chest pain Chest pain type: unspecified Qualified Code: R07.9 - Chest pain, unspecified type Condition: Stable Patient Instructions: Chest Pain, Uncertain Cause ELIER OLIVA Sep 19, 2016 03:31
[2016-09-19 03:58] VITALS: BP 127/93; PULSE 72; RESP 18; TEMP 98.4
--- NOTE | 2016-09-19 04:47 | RADRPT ---
PROCEDURE: CHEST - 1 VIEW CLINICAL INDICATION: 40-year-old male with chest pain. TECHNIQUE: A single frontal AP upright view of the chest was performed portably. The images were reviewed on a PACS workstation. COMPARISON: Chest x-ray June 18, 2016. FINDINGS: The cardiomediastinal silhouette is within normal limits. There is minimal linear right mid lung zo ne subsegmental atelectasis and/or scarring again noted. There is no evidence for an infiltrate. T here is no evidence for congestive heart failure. There is no evidence for pneumothorax. The osseous structures are intact. IMPRESSION: Minimal linear right mid lung zone subsegmental atelectasis versus scarring without significant carlson ge. .Tai Yost MD, MD Date Time Electronically viewed and signed by .Tai Yost MD, on 09/19/2016 04:47 .M/
== END 2016-09-19 04:09 | disposition home or self-care (01) ==
LOC: E/R 20:29
DX: R07.9 Chest pain, unspecified (principal); I10 Essential (primary) hypertension
CPT/HCPCS: 36415; 71010; 80053; 83880; 84484; 85025; 85610; 85730; 93005; 96374; 96375; 99285; J2270; J2405

== ENCOUNTER 2017-01-01 21:54 | Inpatient (IN) | payer MEDICARE, OTHER ==
[~2017-01-01] VITALS: Ht 165.1 cm; Wt 75.8 kg
[2017-01-01] MEDS ORDERED: ONDANSETRON 4 MG INJ IV STA (23:23)
--- NOTE | 2017-01-01 23:29 | ERD ---
ER Documentation Chief Complaint Date/Time DATE: 01/01/17 TIME: 23:26 Chief Complaint EPIGASTRIC PAIN +VOMITING X3 DAYS ROS All systems reviewed and are negative except as per history of present illness. Medications Home Meds Active Scripts Metoclopramide* (Reglan*) 10 Mg Tablet, 10 MG PO Q6 Y for NAUSEA AND/OR VOMITING , #10 TAB Prov:BHAVYA PETERSEN DO 09/07/16 Hydrocodone/Acetaminophen ([place] 5-325 Tablet) 1 Each Tablet, 1 TAB PO Q6H Y for PAIN, #6 TAB Prov:LO RIOS PA-C 08/12/16 Ondansetron Hcl* (Zofran*) 4 Mg Tablet, 4 MG PO Q6H for NAUSEA AND/OR VOMITING, #30 TAB Prov:LO RIOSC 08/12/16 Ciprofloxacin Hcl* (Ciprofloxacin Hcl*) 500 Mg Tablet, 500 MG PO BID for 7 Days , TAB Prov:LO RIOSC 08/12/16 Atorvastatin* (Atorvastatin*) 40 Mg Tablet, 40 MG PO HS for 30 Days, TAB Prov:NADEEM GUO 06/12/16 Metoprolol Tartrate* (Lopressor*) 25 Mg Tab, 25 MG PO BID for 30 Days, TAB Prov:NADEEM GUO 06/12/16 Reported Medications Esomeprazole Mag Trihydrate (Nexium) 40 Mg Capsule.dr, 40 MG PO BID, #60 CAP 06/18/16 Omeprazole* (Omeprazole*) 20 Mg Capsule.dr, 20 MG PO DAILY, #30 CAP 06/18/16 Mycophenolate Sodium* (Myfortic*) 360 Mg Tablet.dr, 360 MG PO BID, TAB 06/18/16 Tacrolimus* (Prograf*) 1 Mg Capsule, 1 MG PO QHS, CAP 06/18/16 Tacrolimus* (Prograf*) 1 Mg Capsule, 2 MG PO QAM, CAP 06/18/16 Gabapentin* (Gabapentin*) 300 Mg Capsule, 300 MG PO TID, #90 CAP 06/08/16 Tamsulosin Hcl* (Tamsulosin Hcl*) 0.4 Mg Cap.er.24h, 0.4 MG PO HS, CAP 03/27/15 Sertraline Hcl* (Sertraline Hcl*) 100 Mg Tablet, 100 MG PO DAILY, TAB 03/27/15 Magnesium Oxide* (Magnesium Oxide*) 400 Mg Tablet, 400 MG PO BID, TAB 03/27/15 Zolpidem Tartrate* (Ambien*) 10 Mg Tablet, 10 MG PO HS Y for SLEEP, TAB 12/18/13 Folic Acid* (Folic Acid*) 1 Mg Tablet, 1 MG PO DAILY, TAB 12/18/13 Famotidine* (Famotidine*) 20 Mg Tablet, 20 MG PO DAILY 10/15/12 Allergies Allergies: Coded Allergies: No Known Allergy (Verified , 09/07/16) PMhx/Soc History of Surgery: Yes (r kidney transplant 2009, hernia repair, hip surgery, fistula in past) Anesthesia Reaction: No Hx Neurological Disorder: Yes (seizures) Hx Respiratory Disorders: No Hx Cardiac Disorders: Yes (htn- resolved w/ transplant) Hx Psychiatric Problems: Yes ( depression) Hx Miscellaneous Medical Probl: Yes (chronic diarrhea) Hx Alcohol Use: No Hx Substance Use: No Hx Tobacco Use: No Smoking Status: Never smoker FmHx Family History: No coronary disease, No diabetes, No other Physical Exam Vitals Vital Signs Date Time Temp Pulse Resp B/P Pulse Ox O2 Delivery O2 Flow Rate FiO2 01/01/17 22:06 98.7 78 20 140/88 98 Results 24 hrs Current Medications Medications (Trade) Dose Ordered Sig/Marcelino Route PRN Reason Start Time Stop Time Status Last Admin Dose Admin Ondansetron HCl (Zofran Inj) 4 mg ONCE STAT IV 01/01/17 23:23 01/01/17 23:25 TIBURCIO HAWKINS NP January 01, 2017 23:28 SKIN: There is no apparent rash or petechia. The skin is warm and dry. HEMATOLOGIC AND LYMPHATIC: There is no evidence of excessive bruising or lymphedema. No gross cervical, axillary, or inguinal lymphadenopathy. Results 24 hrs Current Medications Medications (Trade) Dose Ordered Sig/Marcelino Route PRN Reason Start Time Stop Time Status Last Admin Dose Admin Ondansetron HCl (Zofran Inj) 4 mg ONCE STAT IV 01/01/17 23:23 01/01/17 23:25 DC EKG was done, read by me and is normal sinus rhythm at a rate of 66, normal axis , there is no ST changes or changes in the EKG that indicates any cardiac emergencies at this time. Patient's EKG was also reviewed by Dr. Edwards. Impression: no acute findings on EKG Patient was given Zofran here in the emergency department. After treatment, patient was able to tolerate po fluids here in the emergency department without any vomiting. There is no signs and symptoms of dehydration. TIBURCIO GALEANA NP January 01, 2017 23:28
[2017-01-01 23:58] LABS: ADD SCAN DIFF NO
[2017-01-02] VITALS (11 sets, daily range): BP systolic 112–129; BP diastolic 65–88; PULSE 60–75; RESP 16–18; Ht 165.1 cm; Wt 75.8 kg
[2017-01-02 00:04] LABS: BASOPHILS % 0.3 % (0.0-2.0); EOSINOPHILS # 0.2 10^3/ul (0.0-0.5); EOSINOPHILS % 1.5 % (0.0-7.0); HEMATOCRIT 43.9 % (42.0-52.0); HEMOGLOBIN 14.6 g/dl (14.0-18.0); LYMPHOCYTES # 2.4 10^3/ul (0.8-2.9); LYMPHOCYTES % 21.5 % (15.0-51.0); MEAN CORPUSCULAR HEMOGLOBIN 28.3 pg (29.0-33.0); MEAN CORPUSCULAR HGB CONC 33.3 g/dl (32.0-37.0); MEAN CORPUSCULAR VOLUME 85.1 fl (82.0-101.0); MEAN PLATELET VOLUME 10.7 fl (7.4-10.4); MONOCYTE # 1.1 10^3/ul (0.3-0.9); MONOCYTES % 10.1 % (0.0-11.0); NEUTROPHIL # 7.4 10^3/ul (1.6-7.5); NEUTROPHILS % 65.3 % (39.0-77.0); PLATELET COUNT 276 10^3/UL (140-415); RED BLOOD COUNT 5.16 10^6/ul (4.70-6.10); RED CELL DISTRIBUTION WIDTH 14.1 % (11.5-14.5); WHITE BLOOD COUNT 11.3 10^3/ul (4.8-10.8)
--- NOTE | 2017-01-02 00:19 | RADRPT ---
PROCEDURE: CHEST - 1 VIEW CLINICAL INDICATION: 41-year-old male with chest pain. TECHNIQUE: A single frontal AP upright portable view of the chest was performed. The images were reviewed on a PACS workstation. COMPARISON: Chest x-ray September 19, 2016. FINDINGS: The cardiomediastinal silhouette is within normal limits without significant interval change. There is linear right mid lung zone scarring again visualized. There is a shallow inspiration. There is mild left basilar subsegmental atelectasis versus scarring. There is no evidence for an infiltrate . There is no evidence for congestive heart failure. There is no evidence for pneumothorax. The oss eous structures are intact. IMPRESSION: 1. Linear right mid lung zone scarring without interval change. 2. Shallow inspiration. 3. Minimal left basilar subsegmental atelectasis and/or scarring. .Tai Yost MD, Date Time Electronically viewed and signed by .Tai Yost MD, on 01/02/2017 00:19 .M/
[2017-01-02 00:28] LABS: ALANINE AMINOTRANSFERASE 37 IU/L (13-69); ALBUMIN 4.9 g/dl (3.3-4.9); ALBUMIN/GLOBULIN RATIO 1.58; ALKALINE PHOSPHATASE 96 IU/L (42-121); ANION GAP 12 (8-16); ASPARTATE AMINO TRANSFERASE 31 IU/L (15-46); BILIRUBIN,INDIRECT 0.4 mg/dl (0-1.1); BILIRUBIN,TOTAL 0.4 mg/dl (0.2-1.3); BLOOD UREA NITROGEN 16 mg/dl (7-20); CALCIUM 9.7 mg/dl (8.4-10.2); CARBON DIOXIDE 24 mmol/L (21-31); CHLORIDE 98 mmol/L (97-110); GLUCOSE 105 mg/dl (70-220); POTASSIUM 4.2 mmol/L (3.5-5.1); SODIUM 130 mmol/L (135-144)
[2017-01-02] MEDS ORDERED: TACR1CAP PO ×2 (00:34)
[2017-01-02] MEDS ORDERED: IBUP200C PO (00:34)
[2017-01-02] MEDS ORDERED: PRED1TAB2 PO (00:34)
[2017-01-02 00:42] LABS: TROPONIN-I < 0.012 ng/ml (0.00-0.12)
[2017-01-02] MEDS ORDERED: NITROGLYCERIN 2% 1 GM OINT PKT TD ONE (01:30)
[2017-01-02] MEDS ORDERED: ASPIRIN 81 MG TAB PO ONE (01:30)
--- NOTE | 2017-01-02 02:25 | ERA ---
ER Documentation Chief Complaint Date/Time DATE: 01/01/17 Chief Complaint Chest pain HPI The patient is a 41-year-old male, presenting to the ER because of left-sided chest pain 05/14, no aggravating or relieving factor, radiating to the left arm. He denies similar symptoms previously. He complains of nausea with epigastric discomfort for the last 3 days, denies dysuria, diarrhea, constipation. He does not smoke nor drink Past medical history: History of chronic kidney disease, anxiety, depression, gastritis, dyslipidemia Past surgical history: Renal transplant, bilateral inguinal herniorrhaphy, ventral herniorrhaphy ROS All systems reviewed and are negative except as per history of present illness. Medications Home Meds Active Scripts Hydrocodone/Acetaminophen ([place] 5-325 Tablet) 1 Each Tablet, 1 TAB PO Q6H Y for PAIN, #6 TAB Prov:LO RIOS PA-C 08/12/16 Ondansetron Hcl* (Zofran*) 4 Mg Tablet, 4 MG PO Q6H for NAUSEA AND/OR VOMITING, #30 TAB Prov:LO RIOS PA-C 08/12/16 Reported Medications Ibuprofen* (Ibuprofen*) 200 Mg Capsule, 400 MG PO Q6 for PAIN, CAP 01/02/17 Prednisone* (Prednisone*) 1 Mg Tablet, 0 PO DAILY, TAB 01/02/17 Tacrolimus* (Tacrolimus*) 1 Mg Capsule, 3 MG PO QHS, CAP 01/02/17 Tacrolimus* (Tacrolimus*) 1 Mg Capsule, 3 MG PO QAM, CAP 01/02/17 Esomeprazole Mag Trihydrate (Nexium) 40 Mg Capsule.dr, 40 MG PO BID, #60 CAP 06/18/16 Omeprazole* (Omeprazole*) 20 Mg Capsule.dr, 20 MG PO DAILY, #30 CAP 06/18/16 Mycophenolate Sodium* (Myfortic*) 360 Mg Tablet.dr, 360 MG PO BID, TAB 06/18/16 Gabapentin* (Gabapentin*) 300 Mg Capsule, 300 MG PO TID, #90 CAP 06/08/16 Tamsulosin Hcl* (Tamsulosin Hcl*) 0.4 Mg Cap.er.24h, 0.4 MG PO HS, CAP 03/27/15 Sertraline Hcl* (Sertraline Hcl*) 100 Mg Tablet, 100 MG PO DAILY, TAB 03/27/15 Magnesium Oxide* (Magnesium Oxide*) 400 Mg Tablet, 400 MG PO BID, TAB 03/27/15 Zolpidem Tartrate* (Ambien*) 10 Mg Tablet, 10 MG PO HS Y for SLEEP, TAB 12/18/13 Folic Acid* (Folic Acid*) 1 Mg Tablet, 1 MG PO DAILY, TAB 12/18/13 Discontinued Reported Medications Tacrolimus* (Prograf*) 1 Mg Capsule, 1 MG PO QHS, CAP 06/18/16 Tacrolimus* (Prograf*) 1 Mg Capsule, 2 MG PO QAM, CAP 06/18/16 Famotidine* (Famotidine*) 20 Mg Tablet, 20 MG PO DAILY 10/15/12 Discontinued Scripts Metoclopramide* (Reglan*) 10 Mg Tablet, 10 MG PO Q6 Y for NAUSEA AND/OR VOMITING , #10 TAB Prov:BHAVYA PETERSEN DO 09/07/16 Ciprofloxacin Hcl* (Ciprofloxacin Hcl*) 500 Mg Tablet, 500 MG PO BID for 7 Days , TAB Prov:LO RIOS PA-C 08/12/16 Atorvastatin* (Atorvastatin*) 40 Mg Tablet, 40 MG PO HS for 30 Days, TAB Prov:NADEEM GUO 06/12/16 Metoprolol Tartrate* (Lopressor*) 25 Mg Tab, 25 MG PO BID for 30 Days, TAB Prov:NADEEM GUO 06/12/16 Allergies Allergies: Coded Allergies: No Known Allergy (Unverified , 01/02/17) PMhx/Soc History of Surgery: Yes (r kidney transplant 2009, hernia repair, hip surgery, fistula in past) Anesthesia Reaction: No Hx Neurological Disorder: Yes (seizures) Hx Respiratory Disorders: No Hx Cardiac Disorders: Yes (htn- resolved w/ transplant) Hx Psychiatric Problems: Yes ( depression) Hx Miscellaneous Medical Probl: Yes (chronic diarrhea) Hx Alcohol Use: No Hx Substance Use: No Hx Tobacco Use: No Smoking Status: Never smoker Physical Exam Vitals Vital Signs Date Time Temp Pulse Resp B/P Pulse Ox O2 Delivery O2 Flow Rate FiO2 01/01/17 22:06 98.7 78 20 140/88 98 Physical Exam Const: No acute distress. Head: Atraumatic. Eyes: Normal Conjunctiva. ENT: Normal External Ears, Nose and Mouth. Neck: Full range of motion. No meningismus. Resp: Clear to auscultation bilaterally. Cardio: Regular rate and rhythm, no murmurs. Abd: Soft, non distended, normal bowel sounds, non tender. Skin: No petechiae or rashes. Back: No midline or flank tenderness. Ext: No cyanosis, or edema. Neur: Awake and alert. No focal deficit Psych: Normal Mood and Affect. Result Diagram: 01/01/17232901/01/172329 Results 24 hrs Laboratory Tests Test 01/01/17 23:30 White Blood Count 11.310^3/ul Red Blood Count 5.1610^6/ul Hemoglobin 14.6g/dl Hematocrit 43.9% Mean Corpuscular Volume 85.1fl Mean Corpuscular Hemoglobin 28.3pg Mean Corpuscular Hemoglobin Concent 33.3g/dl Red Cell Distribution Width 14.1% Platelet Count 85239^3/UL Mean Platelet Volume 10.7fl Neutrophils % 65.3% Lymphocytes % 21.5% Monocytes % 10.1% Eosinophils % 1.5% Basophils % 0.3% Nucleated Red Blood Cells % 0.0/100WBC Neutrophils # 7.410^3/ul Lymphocytes # 2.410^3/ul Monocytes # 1.110^3/ul Eosinophils # 0.210^3/ul Basophils # 0.010^3/ul Nucleated Red Blood Cells # 0.010^3/ul Sodium Level 130mmol/L Potassium Level 4.2mmol/L Chloride Level 98mmol/L Carbon Dioxide Level 24mmol/L Anion Gap 12 Blood Urea Nitrogen 16mg/dl Creatinine 1.30mg/dl Glucose Level 105mg/dl Calcium Level 9.7mg/dl Total Bilirubin 0.4mg/dl Direct Bilirubin 0.00mg/dl Indirect Bilirubin 0.4mg/dl Aspartate Amino Transf (AST/SGOT) 31IU/L Alanine Aminotransferase (ALT/SGPT) 37IU/L Alkaline Phosphatase 96IU/L Troponin I < 0.012ng/ml Total Protein 8.0g/dl Albumin 4.9g/dl Globulin 3.10g/dl Albumin/Globulin Ratio 1.58 Current Medications Medications (Trade) Dose Ordered Sig/Marcelino Route PRN Reason Start Time Stop Time Status Last Admin Dose Admin Ondansetron HCl (Zofran Inj) 4 mg ONCE STAT IV 01/01/17 23:23 01/01/17 23:25 DC 01/02/17 00:23 Aspirin (Aspirin) 162 mg ONCE ONCE PO 01/02/17 01:30 01/02/17 01:31 DC 01/02/17 01:16 Nitroglycerin (Nitroglycerin 2% Oint) 1 inch ONCE ONCE TD 01/02/17 01:30 01/02/17 01:31 DC 01/02/17 01:16 Procedures/[place] [address] Radiology Main Line: [phone] DIAGNOSTIC IMAGING REPORT Patient: HANNA GARCIA : 1975 Age: 41 Sex: M MR #: [id number] DOS: 01/01/17 2323 Ordering MD: TIBURCIO GALEANA NP Location: E/R Room/Bed: PROCEDURE: CHEST - 1 VIEW CLINICAL INDICATION: 41-year-old male with chest pain. TECHNIQUE: A single frontal AP upright portable view of the chest was performed. The images were reviewed on a PACS workstation. COMPARISON: Chest x-ray September 19, 2016. FINDINGS: The cardiomediastinal silhouette is within normal limits without significant interval change. There is linear right mid lung zone scarring again visualized. There is a shallow inspiration. There is mild left basilar subsegmental atelectasis versus scarring. There is no evidence for an infiltrate. There is no evidence for congestive heart failure. There is no evidence for pneumothorax. The osseous structures are intact. IMPRESSION: 1. Linear right mid lung zone scarring without interval change. 2. Shallow inspiration. 3. Minimal left basilar subsegmental atelectasis and/or scarring. .Tai Yost MD, Date Time Electronically viewed and signed by .Tai Yost MD, on 01/02/2017 00:19 .M/ CC: TIBURCIO GALEANA NP EKG: Read by emergency physician Rate/Rhythm: Normal Sinus Rhythm 67 beats/min QRS, ST, T-waves: No ST elevation, no T inversion, PAC Impression: Abnormal EKG MEDICAL MAKING DECISION: Patient is a 41-year-old male, presenting with acute chest pain that is concerning for ACS. He was treated with aspirin 150 mg p.o. , 1 inch of nitroglycerin ointment, morphine 2 mg IV for pain, Zofran 4 mg IV for nausea with good response. The differential diagnoses considered include but are not limited to acute coronary syndrome, acute myocardial infarction, pericarditis, pulmonary embolism , aortic dissection, pneumonia, pleural effusion, pneumothorax, GERD, chest wall pain. Departure Diagnosis: Primary Impression: Chest pain Condition: Stable Comments I discussed the findings with the patient. I discussed the patient with the on- call hospitalist Dr. Hobson at 2 AM who was made aware of the lab, the treatment, the patient condition. The patient is admitted to telemetry EDELMIRA MEJIA MD January 02, 2017 02:25
[2017-01-02] MEDS ORDERED: morphine 2 MG INJ IV ONE (02:30)
[2017-01-02] MEDS ORDERED: NACL 0.9% 3 ML SYG IV SCH (02:30)
[2017-01-02] MEDS ORDERED: ONDANSETRON 4 MG INJ IV PRN (02:30)
[2017-01-02] MEDS ORDERED: LORAZEPAM 2 MG INJ IV PRN (02:30)
[2017-01-02 03:30] LABS: CREATINE KINASE 133 IU/L (23-200)
[2017-01-02 03:44] LABS: CK-MB 1.62 ng/ml (0.0-2.4); TROPONIN-I < 0.012 ng/ml (0.00-0.12)
[2017-01-02] MEDS: SOD CHLORIDE 0.9% 1,000 ML IV SCH ×2 (03:48→22:27)
[2017-01-02] MEDS: morphine 2 MG INJ IV PRN ×5 (03:49→23:28)
[2017-01-02] MEDS ORDERED: PANTOPRAZOLE 40 MG INJ IV SCH (06:00)
[2017-01-02] MEDS: MAGNESIUM OXIDE 400 MG TAB PO SCH ×2 (08:47→20:36)
[2017-01-02] MEDS: GABAPENTIN 300 MG CAP PO SCH ×3 (08:47→20:36)
[2017-01-02] MEDS: MYCOPHENOLATE (SR) 180 MG TAB PO SCH ×2 (08:47→20:36)
[2017-01-02] MEDS: FOLIC ACID 1 MG TAB PO SCH (08:47)
[2017-01-02] MEDS: SERTRALINE 100 MG TAB PO SCH (08:47)
[2017-01-02] MEDS ORDERED: TACROLIMUS 1 MG CAP PO SCH ×2 (09:00→21:00)
[2017-01-02] MEDS ORDERED: predniSONE 1 MG TAB PO SCH (09:00)
[2017-01-02 10:28] LABS: CREATINE KINASE 109 IU/L (23-200)
[2017-01-02 10:42] LABS: TROPONIN-I < 0.012 ng/ml (0.00-0.12)
--- NOTE | 2017-01-02 12:45 | HP ---
DATE OF ADMISSION: 01/02/2017 HISTORY OF PRESENT ILLNESS: The patient is a 41-year-old gentleman known to me from previous admiss ion. The patient with history of end-stage renal disease status post renal transplant in 2009, hist ory of anxiety and depression, and history of gastritis, hyperlipidemia, and history of hypertension which resolved after a renal transplant. The patient presented to the emergency room with complain ts of left-sided chest pain, 10 out of 10, with no aggravating or relieving factors. The pain radia rich to the left arm. The patient stated that he had this pain for the last 4 days, it gets signific antly worse over the last couple of days. The patient stated that he had nausea and emesis yesterda y; however, denies any fever, chills, denies any diarrhea. Denies any bilateral lower extremity swe lling. The patient's troponin was negative. The patient underwent a chest x-ray, which revealed li near right mid lung zone scarring without interval change, shallow inspiration, minimal left basilar subsegmental atelectasis, and also scarring. The patient was given aspirin and nitroglycerin and m orphine and Zofran with good response and patient was admitted for further evaluation and management to telemetry floor. PAST MEDICAL HISTORY: Per HPI. PAST SURGICAL HISTORY: The patient is status post renal transplant, status post laparoscopic bilate ral inguinal hernia repair, status post laparoscopic ventral hernia repair. FAMILY HISTORY: Significant for hypertension and kidney disease. The patient has 2 brothers who di ed of renal disease in [facility]. SOCIAL HISTORY: The patient used to work in construction, currently disabled. The patient denies a [place] tobacco use, denies any illicit drug use. Denies any recent alcohol use. ALLERGIES: NO KNOWN ALLERGIES. HOME MEDICATIONS: Includes: 1. [place]. 2. Zofran. 3. Ibuprofen. 4. Prednisone 5. Tacrolimus. 6. Nexium. 7. Omeprazole. 8. Myfortic. 9. Gabapentin. 10. Tamsulosin. 11. Sertraline. 12. Mag oxide. 13. Ambien. 14. Folic acid. REVIEW OF SYSTEMS: A 12-point review of systems is negative unless what is mentioned in the HPI. PHYSICAL ASSESSMENT: GENERAL: Well-developed, well-nourished male, currently is awake, alert, in no acute distress. VITAL SIGNS: Temperature is 98.4, pulse is 81, blood pressure 114/65, respiratory rate 18, oxygen s aturation 96% on room air. HEENT: Head is atraumatic, normocephalic. Pupils equal, round, reactive to light, and accommodatio n. Oral mucosa is pink, moist. NECK: Supple, no cervical lymphadenopathy, no thyromegaly. CHEST: Lungs clear bilaterally. There are no rhonchi, wheezes, rales noted. CARDIOVASCULAR: Normal S1, S2. No murmurs, gallops, clicks, rubs noted. ABDOMEN: Round, soft, nondistended, nontender. Bowel sounds present. EXTREMITIES: No edema, clubbing, cyanosis. Pulses equal bilaterally, 2+. SKIN: There is no rash, petechiae noted. NEUROLOGIC: The patient is awake, alert, and oriented x3. No focal deficits noted. Motor strength 5/5 in all extremities. LABORATORY DATA: On admission, CBC: White blood cells 11.3, hemoglobin 14.6, hematocrit 43.9, plat elets 276. Chemistry: Sodium is 130, potassium 4.2, chloride 98, carbon dioxide 24, anion gap 12, BUN is 16, creatinine 1.3, glucose 105. AST is 31, ALT is 37, alkaline phosphatase is 96. Troponin less than 0.012. ASSESSMENT AND PLAN: 1. Chest pain. Will obtain cardiac enzymes x3. Admit patient to telemetry floor. Continue nitrog lycerin for pain and morphine, Zofran p.r.n. for nausea. We will ask Dr. Salmon to see patient in cardiology consultation. 2. Status post renal transplant. The patient is following with Dr. Shields in nephrology consultati on. Continue the patient's antirejection home medication. 3. History of gastritis. Continue Protonix. 4. Dyslipidemia. 5. Anxiety, depression. Continue sertraline. Further recommendations based on clinical course. Plan of care discussed with Dr. Pagan. Dictated By: NADEEM GUO SHOVEL LOGGER for NIKOLAY PAGAN MD, SR/NTS Conf#: [id number] DID#: [id number]
[2017-01-02 14:54] LABS: CREATINE KINASE 100 IU/L (23-200)
--- NOTE | 2017-01-02 15:10 | RADRPT ---
PROCEDURE: XR left Shoulder. CLINICAL INDICATION: Shoulder pain with movement. TECHNIQUE: 3 views of the left shoulder are available for review. COMPARISON: None available FINDINGS: No evidence for fracture, subluxation or dislocation. No evidence for bone destructive or erosive c hanges. The bones are well mineralized. The acromion is type 2. IMPRESSION: 1. Unremarkable shoulder examination. 2. No acute fracture or dislocation is seen. RPTAT: XX .Deangelo Hagen MD, MD Date Time Electronically viewed and signed by .Deangelo Hagen MD, on 01/02/2017 15:10 .T/
[2017-01-02 15:11] LABS: TROPONIN-I < 0.012 ng/ml (0.00-0.12)
--- NOTE | 2017-01-02 17:07 | CONS ---
DATE OF ADMISSION: 01/02/2017 DATE OF CONSULTATION: 01/02/2017 TYPE OF CONSULTATION: Cardiology. REASON FOR CONSULTATION: Chest pain, assess for acute coronary syndrome. REQUESTING PHYSICIAN: Dr. Nikolay Wills HISTORY OF PRESENT ILLNESS: Mr. Jose Duvall is a 41-year-old male with a history of renal tr ansplant, laparoscopic bilateral inguinal hernia repair and ventral hernia repair, neuropathy, anxie ty, depression, gastritis, dyslipidemia who presents with complaints of substernal chest pain, descr ibes a pressure-like sensation with radiation to his arm, not related to exertional activities. Upo n arrival, temperature 98.1, blood pressure 140/88, pulse 78, respiratory rate 20, saturating 98%. The patient's labs revealed a white count of 11.3, hemoglobin 14.6, platelet count 276. Sodium 130, potassium 4.2, creatinine 1.3, BUN 16. Troponin negative. The patient underwent a chest x-ray revealing a linear right mid lung zone scarring, shallow inspira tion, minimal left basilar subsegmental atelectasis and a shoulder x-ray that revealed unremarkable shoulder, examination. No acute fracture or dislocation. The patient's electrocardiogram revealed normal sinus rhythm, rate of 66, normal axis, normal intervals, isolated T-wave flattening in lead I II. The patient was subsequently admitted to the floor and since admit to the floor, continued ches t pain. The patient has a total of 3 negative troponins, ruling him out for acute myocardial infarc tion. PAST MEDICAL HISTORY: As above in HPI. MEDICATIONS CURRENTLY IN HOSPITAL: 1. Protonix 40 mg daily. 2. Tacrolimus 3 mg at bedtime. 3. Flomax 0.4 mg at bedtime. 4. Folic acid. 5. Neurontin. 6. Magnesium oxide. 7. Myfortic. 8. Prednisone. 9. Zoloft. 10. P.r.n. Ativan. 11. P.r.n. Zofran. 12. P.r.n. Morphine. 13. P.r.n. Ambien. 14. IV fluid hydration 50 mL an hour. ALLERGIES: NO KNOWN DRUG ALLERGIES. SOCIAL HISTORY: No tobacco, ETOH or illicit drug use. FAMILY HISTORY: No history of sudden cardiac or early CAD. REVIEW OF SYSTEMS: As above in HPI. CONSTITUTIONAL: No fevers, chills. PULMONARY: No current shortness of breath. CARDIOVASCULAR: Positive chest pain. GASTROINTESTINAL: No vomiting. GENITOURINARY: No hematuria. MUSCULOSKELETAL: Degenerative joint disease. PSYCHIATRIC: The patient denies depression. NEUROLOGIC: No documented history of CVA. PHYSICAL EXAMINATION VITAL SIGNS: Temperature of 97.6, blood pressure 127/88, pulse 70, respiratory rate 18, saturating 97%. GENERAL: The patient is alert, awake, in no acute distress. NECK: JVP approximately 8 to 9 cm of water. CHEST: Fair air movement throughout. HEART: Regular rate and rhythm. S1, S2, I/ systolic murmur, nondisplaced PMI. ABDOMEN: Positive bowel sounds, soft. EXTREMITIES: No edema, 1+ pulses bilaterally, posterior tibial. LABORATORY DATA: As above in HPI with no further labs for my review at this time. IMAGING STUDIES: As above in HPI. No further imaging studies for my review at this time. ECG: As above in HPI. No further electrocardiograms for my review at this time. IMPRESSION: 1. Chest pain, assess for acute coronary syndrome with patient having a negative stress in June 2016 for ischemia. 2. History of cardiomyopathy, decreased left ventricular ejection fraction, last being approximatel y 44% by stress. 3. Abnormal electrocardiogram with isolated T-wave flattening in lead III. 4. History of renal transplant. 5. History of dyslipidemia. 6. Anxiety. RECOMMENDATIONS: 1. At this time, would maintain patient on telemetry monitoring to follow rhythm and rate closely. 2. Check a 2D echo to further assess the patient's ejection fraction, wall motion and any major zach ve abnormalities. 3. Initiate patient on low dose oral nitrates and follow symptomatology. 4. Will give consideration to repeat stress testing to assess for the possibility of new ischemic l esions causing the patient's chest pain and subsequent admit to the hospital. 5. Check a fasting lipid panel for general risk stratification and initiate lipid-lowering medicati on as necessary. 6. Continue the patient's immunosuppressive medications for a renal transplant. Thank you for allowing me to take part in the care of this patient. I will continue to follow along very closely with you with further recommendations to be made as the patient progresses through his inpatient hospital clinical course. Dictated By: DASHA BREWER/BIBIANA Conf#: [id number] DID#: [id number] CC: NIKOLAY WILLS MD;*End*
--- NOTE | 2017-01-02 17:10 | RADRPT ---
Echocardiogram Report Patient Name: HANNA GARCIA Gender: Male Date: 1975 Study Date: 02-Jan-2017 Supervisor Dry Cleaning: Ana Rogers [facility] Location: 5550 Ref. Physician: MARY PAYAN Quality: Good Procedures: Transthoracic echocardiogram with complete 2D, M-Mode, and doppler examination. Indications: Chest Pain. 2D/M Mode Doppler Measurement Value Normal Ranges Measurement Value Normal Ranges LVIDd 2D 3.8 3.5 - 5.6 cm AV Peak Luc 1.1 m/sec LVIDs 2D 2.3 2.1 - 4.1 cm AV Peak PG 5.0 mmHg FS 2D 38.4 % LVOT Peak Luc 0.9 m/sec LVPWd 2D 0.9 0.6 - 1.1 cm LVOT Peak PG 3.0 mmHg IVSd 2D 0.9 0.6 - 1.1 cm MV E Peak Luc 0.6 m/sec IVS/LVPW 2D 1.0 MV A Peak Luc 0.9 m/sec AoR Diam 2D 2.6 2.0 - 3.7 cm MV E/A 0.7 LA/Ao 2D 1 0 - 1 MV Decel Time 215 msec EDV 2D 54.0 cm3 MV E/A 0.7 ESV 2D 12.6 cm3 TR Peak Luc 2.1 m/sec LA Dimen 2D 3.5 2.3 - 4.0 cm TR Peak PG 17.0 mmHg RVSP 20.0 mmHg Findings Left Ventricle: Normal left ventricular systolic function. Normal left ventricular cavity size. Normal left ventricular wall thickness. Ejection fraction is visually estimated at 4550 %. Tissue Doppler/Mitral Doppler indices are consistent with impaired relaxation (Stage I diastolic dysfunction). These segments of the LV are hypokinetic inferior mid segment. Right Ventricle: Normal right ventricular size. Normal right ventricular systolic function. Left Atrium: The left atrium is normal in size. Right Atrium: The right atrium is normal in size. Mitral Valve: Mitral valve leaflets appear mildly thickened. Mild mitral annular calcification. Trace mitral regurgitation. Aortic Valve: Normal appearance of the aortic valve. No significant aortic stenosis or insufficiency. Tricuspid Valve: Normal appearance of the tricuspid valve. Estimated peak PA systolic pressure 20 mmHg. There is trace tricuspid regurgitation. Pulmonic Valve: Pulmonic valve not well visualized. Pericardium: Normal pericardium with no significant pericardial effusion. Aorta: Normal aortic root. IVC: Normal size and normal respiratory collapse consistent with normal right atrial pressure. Conclusions 1.Normal left ventricular systolic function. Normal left ventricular cavity size. Normal left ventricular wall thickness. Ejection fraction is visually estimated at 45-50 %. Tissue Doppler/Mitral Doppler indices are consistent with impaired relaxation (Stage I diastolic dysfunction). These segments of the LV are hypokinetic inferior mid segment. 2.Mitral valve leaflets appear mildly thickened. Mild mitral annular calcification. Trace mitral regurgitation. 3.Normal appearance of the tricuspid valve. Estimated peak PA systolic pressure 20 mmHg. There is trace tricuspid regurgitation. Electronically Signed By: Prabhu Salmon 02-Jan-2017 17:10:02 -0700 Patient Name: HANNA GARCIA Study Date: 02-Jan-2017 [id number]
[2017-01-02] MEDS: ISOSORBIDE DINITRATE 10 MG TAB PO SCH (20:36)
[2017-01-02] MEDS: TAMSULOSIN (SR) 0.4 MG CAP PO SCH (20:36)
[2017-01-03] VITALS (12 sets, daily range): BP systolic 103–124; BP diastolic 60–78; PULSE 73–113; RESP 16–18
[2017-01-03] MEDS: morphine 2 MG INJ IV PRN ×5 (03:53→23:09)
[2017-01-03] MEDS: PANTOPRAZOLE (EC) 40 MG TAB PO SCH (05:43)
[2017-01-03 08:10] LABS: ALBUMIN 4.6 g/dl (3.3-4.9); BILIRUBIN,INDIRECT 0.7 mg/dl (0-1.1); BILIRUBIN,TOTAL 0.7 mg/dl (0.2-1.3); CALCIUM 9.4 mg/dl (8.4-10.2); CHOL/HDL RATIO 6.4 RATIO; CREATININE 1.07 mg/dl (0.61-1.24); POTASSIUM 4.4 mmol/L (3.5-5.1); TOTAL PROTEIN 6.9 g/dl (6.1-8.1)
[2017-01-03 08:29] LABS: ADD SCAN DIFF NO
[2017-01-03 08:40] LABS: BASOPHILS % 0.3 % (0.0-2.0); EOSINOPHILS # 0.2 10^3/ul (0.0-0.5); EOSINOPHILS % 2.7 % (0.0-7.0); HEMATOCRIT 42.7 % (42.0-52.0); HEMOGLOBIN 14.1 g/dl (14.0-18.0); LYMPHOCYTES # 1.7 10^3/ul (0.8-2.9); LYMPHOCYTES % 21.5 % (15.0-51.0); MEAN CORPUSCULAR HEMOGLOBIN 28.4 pg (29.0-33.0); MEAN CORPUSCULAR VOLUME 86.1 fl (82.0-101.0); MEAN PLATELET VOLUME 10.7 fl (7.4-10.4); MONOCYTE # 0.7 10^3/ul (0.3-0.9); MONOCYTES % 9.5 % (0.0-11.0); NEUTROPHILS % 64.8 % (39.0-77.0); PLATELET COUNT 246 10^3/UL (140-415); RED BLOOD COUNT 4.96 10^6/ul (4.70-6.10); RED CELL DISTRIBUTION WIDTH 14.1 % (11.5-14.5); WHITE BLOOD COUNT 7.7 10^3/ul (4.8-10.8)
[2017-01-03 08:57] LABS: THYROID STIMULATING HORMONE 1.89 MIU/L (0.465-4.680)
[2017-01-03] MEDS: ISOSORBIDE DINITRATE 10 MG TAB PO SCH ×4 (09:00→20:30)
[2017-01-03] MEDS: CYCLOSPORINE 100 MG CAP PO SCH (09:00)
[2017-01-03] MEDS: MAGNESIUM OXIDE 400 MG TAB PO SCH ×3 (09:00→20:29)
[2017-01-03] MEDS: GABAPENTIN 300 MG CAP PO SCH ×4 (09:00→20:29)
[2017-01-03] MEDS: predniSONE 10 MG TAB PO SCH ×2 (09:00→09:57)
[2017-01-03] MEDS: SERTRALINE 100 MG TAB PO SCH ×2 (09:00→09:57)
[2017-01-03] MEDS: FOLIC ACID 1 MG TAB PO SCH ×2 (09:00→09:57)
[2017-01-03] MEDS ORDERED: CYCLOSPORINE 25 MG CAP PO SCH ×2 (10:30→21:00)
[2017-01-03 10:50] LABS: ADD UMIC YES; URINE BILIRUBIN (Dip) NEGATIVE (NEGATIVE); URINE BLOOD (Dip) NEGATIVE (NEGATIVE); URINE COLOR LT. YELLOW (YELLOW); URINE GLUCOSE (Dip) NEGATIVE (NEGATIVE); URINE KETONES (Dip) NEGATIVE (NEGATIVE); URINE LEUKOCYTE ESTERASE (Dip) NEGATIVE (NEGATIVE); URINE NITRITE (Dip) NEGATIVE (NEGATIVE); URINE TOTAL PROTEIN (Dip) TRACE (NEGATIVE); URINE UROBILINOGEN (Dip) 0.2 E.U./dL (0.1-1.0)
[2017-01-03 11:17] LABS: BACTERIA,URINE RARE; URINE RBCS 0-2 /HPF (0)
--- NOTE | 2017-01-03 11:55 | CONS ---
DATE OF ADMISSION: 01/02/2017 DATE OF CONSULTATION: 01/03/2017 TYPE OF CONSULTATION: Renal Thank you very much for allowing me to evaluate this 41-year-old male admitted via the ER with chest pain. HISTORICAL EVENTS: As you well know, this patient sought help at [facility] ER when he pre sented with left-sided anterior chest pain just above the nipple at the left breast that came on rat her suddenly. Associated with that, he states 1 episode of vomiting without accompanying cough or a bdominal pain. His discomfort was somewhat pleuritic, unaccompanied by fever or chills. It seemed not to worsen with change in the body position. He did not eat. He does note some mild dysuria, no hematuria, flank pain or lower abdominal pain. PRESENT MEDICATIONS: 1. Sertraline 100 mg per day. 2. Flomax 0.4. 3. Ambien 5 mg per day. 4. Nexium 40 mg per day. 5. Cyclosporine 100 mg q.12h. 6. Prednisone 5 mg per day. Importantly, Myfortic and Prograf were discontinued by a transplant center in [place]. PAST MEDICAL HISTORY: Includes: 1. Hypertension. 2. Live related kidney transplant in 02/2010. 3. Right shoulder surgery. 4. Umbilical and inguinal hernia repair, undergoing surgery involving the right hip for a "tear" wi th resolution of pain. 5. Recurrent abdominal pain, undergoing prior CT abdomen and pelvis, colonoscopies and endoscopies as well as stool for C. diff, white cells with p.m. routine culture. this beginning in 04/2013. His symptoms markedly improved with discontinuance of Prograf and Myfortic and institution of cyclospor ine. 6. Known extensive bilateral testicular microlithiasis. 7. Known moderate bilateral facet arthropathy, as revealed by MRI study in 2014. ALLERGIES: NO ALLERGIES. SOCIAL HISTORY: , 3 kids, was involved as a drafter construction. FAMILY HISTORY: Noncontributory. PHYSICAL EXAMINATION: VITAL SIGNS: BP 128/80, pulse 70, respirations are 20, he was afebrile. EYES: Extraocular muscles were full. Nose, mouth and throat were normal. NECK: Supple. There was no jugular venous distention, thyroid enlargement or adenopathy. LUNGS: Clear. HEART: Rhythm regular, no murmur. No third or fourth sound. There was no definite chest wall tend erness. ABDOMEN: Nontender. Liver and spleen were not palpable. No masses or tenderness were noted. EXTREMITIES: No edema. Calves nontender. LABORATORY AND DIAGNOSTIC STUDIES: Hematocrit was 43.9, white count 11,300, platelet count 276,000, with chemistries unrevealing except for sodium of 130, creatinine was 1.3. Troponins were negative . Liver tests were normal. IMPRESSION: 1. Chest pain, the cause of which is unclear, coronary insufficiency. Myocardial infarction has be en excluded. I think pulmonary embolus is less likely but reasonable to proceed with a VQ lung sca n and I suspect his pain is likely musculoskeletal. 2. Mild impaired renal function. His baseline creatinine usually is 0.9 to 1. Present level of 1. 3 probably is related to volume contraction. Urinary chemistries will hopefully support the same, a s his creatinine was 1.00 on 12/28/2016. 3. Immunosuppressive regimen had been modified and I will make these changes today. PLAN: I plan on following him with you. Dictated By: DEE MARQUEZ/BIBIANA Conf#: [id number] DID#: [id number]
--- NOTE | 2017-01-03 12:44 | RADRPT ---
PROCEDURE: Ventilation-perfusion lung scan CLINICAL INDICATION: 41 -year-old patient with shortness of breath. TECHNIQUE: Following the inhalation of approximately 1.0 mCi of Tc-99m stannous DTPA aerosol, vent ilation images were obtained. The patient was then given an intravenous injection of 4.6 mCi of Tc- 99m MAA, in perfusion images were obtained. COMPARISON: No prior VQ scans. Correlation was made with chest x-ray dated January 01, 2017. FINDINGS: There is evidence of an elevation of the right hemidiaphragm. Ventilation images demonstrate mildly nonhomogeneous distribution of activity in the lungs bilateral ly. Perfusion images reveal matched nonhomogeneous distribution of activity in both lungs. The findings represent low probability for pulmonary embolus. IMPRESSION: 1. Low probability for pulmonary embolus. 2. Elevation of the right hemidiaphragm. RPTAT: HH .Antoinette Pierre MD, Date Time Electronically viewed and signed by .Antoinette Pierre MD, on 01/03/2017 12:43 .L/
[2017-01-03] MEDS: SOD CHLORIDE 0.9% 1,000 ML IV SCH (17:39)
--- NOTE | 2017-01-03 17:43 | RADRPT ---
Vent Rate: 73 bpm RR Interval: 0 msec TX Interval: 146 msec QRS Duration: 88 msec QT Interval: 410 msec QTC Interval: 451 msec P-R-T [place]: 36 - 17 - 34 degrees Sinus rhythm with premature supraventricular complexes Otherwise normal ECG Electronically Signed By: Omar Haynes [id number]
--- NOTE | 2017-01-03 18:52 | PN ---
Date/Time of Note Date/Time of Note DATE: 01/03/17 TIME: 18:49 Assessment/Plan VTE Prophylaxis VTE Prophylaxis Intervention: other Lines/Catheters IV Catheter Type (from Nrsg): Peripheral IV Urinary Cath still in place: No Assessment/Plan Assessment/Plan 1. Chest pain. Will obtain cardiac enzymes x3. Continue nitroglycerin for pain and morphine, Zofran p.r.n. for nausea. -per Dr. Salmon in cardiology consultation. - stress test tomorrow 2. Status post renal transplant. - per Dr. Shields in nephrology consultation. Continue the patient's antirejection home medication. 3. History of gastritis. Continue Protonix. 4. Dyslipidemia. 5. Anxiety, depression. Continue sertraline. Further recommendations based on clinical course. Plan of care discussed with Dr. Wills. Subjective 24 Hr Interval Summary Free Text/Dictation c/o chest pain, better with pain med, - stress test tomorrow, staff Exam/Review of Systems Vital Signs Vitals Vital Signs Date Time Temp Pulse Resp B/P Pulse Ox O2 Delivery O2 Flow Rate FiO2 01/03/17 16:30 107 01/03/17 15:31 98.1 18 117/60 97 01/02/17 02:45 Room Air Intake and Output 01/02/17 01/02/17 01/03/17 15:00 23:00 07:00 Intake Total 1000 ml Balance 1000 ml Exam Constitutional: alert, oriented, well developed Respiratory: clear to auscultation, normal air movement Cardiovascular: nl pulses, regular rate and rhythm Gastrointestinal: non-tender, soft Musculoskeletal: nl extremities to inspection Extremities: normal pulses Neurological: nl mental status, nl speech Lymph: nontender Results Result Diagram: 01/03/17 0720 01/03/17 0720 Results 24 hrs Laboratory Tests Test 01/03/17 06:00 01/03/17 07:20 01/03/17 11:02 01/03/17 12:27 Urine Color LT. YELLOW Urine Clarity CLEAR Urine pH 6.0 Urine Specific [place] 1.010 Urine Ketones NEGATIVE Urine Nitrite NEGATIVE Urine Bilirubin NEGATIVE Urine Urobilinogen 0.2 E.U./dL Urine Leukocyte Esterase NEGATIVE Urine Microscopic RBC 0-2 Urine Microscopic WBC 2-5 Urine Epithelial Cells RARE Urine Bacteria RARE Urine Hemoglobin NEGATIVE Urine Glucose NEGATIVE Urine Total Protein TRACE White Blood Count 7.7 # Red Blood Count 4.96 Hemoglobin 14.1 Hematocrit 42.7 Mean Corpuscular Volume 86.1 Mean Corpuscular Hemoglobin 28.4 L Mean Corpuscular Hemoglobin Concent 33.0 Red Cell Distribution Width 14.1 Platelet Count 246 Mean Platelet Volume 10.7 H Neutrophils % 64.8 Lymphocytes % 21.5 Monocytes % 9.5 Eosinophils % 2.7 Basophils % 0.3 Nucleated Red Blood Cells % 0.0 Neutrophils # 5.0 Lymphocytes # 1.7 Monocytes # 0.7 Eosinophils # 0.2 Basophils # 0.0 Nucleated Red Blood Cells # 0.0 Sodium Level 135 Potassium Level 4.4 Chloride Level 103 Carbon Dioxide Level 28 Anion Gap 8 Blood Urea Nitrogen 15 Creatinine 1.07 Glucose Level 91 Hemoglobin A1c 5.7 Calcium Level 9.4 Total Bilirubin 0.7 Direct Bilirubin 0.00 Indirect Bilirubin 0.7 Aspartate Amino Transf (AST/SGOT) 26 Alanine Aminotransferase (ALT/SGPT) 36 Alkaline Phosphatase 94 Total Protein 6.9 # Albumin 4.6 Globulin 2.30 Albumin/Globulin Ratio 2.00 Triglycerides Level 258 H Cholesterol Level 212 H LDL Cholesterol, Calculated 127 HDL Cholesterol 33 Cholesterol/HDL Ratio 6.4 Thyroid Stimulating Hormone (TSH) 1.890 Urine Random Sodium 29 L Bedside Glucose 117 Medications Medications Current Medications Sodium Chloride (NS) 1,000 ml @ 50 mls/hr Q20H IV Last administered on 17:39; Admin Dose 50 MLS/HR; Start 01/02/17 at 02:27 Lorazepam (Ativan) 0.5 mg Q6H PRN IV ANXIETY; Start 01/02/17 at 02:30 Ondansetron HCl (Zofran Inj) 4 mg Q6H PRN IV NAUSEA AND/OR VOMITING; Start at 02:30 Morphine Sulfate (morphine) 2 mg Q4H PRN IV PAIN LEVEL 7-10 Last administered on 01/03/17 14:23; Admin Dose 2 MG; Start 01/02/17 at 02:30 Folic Acid (Folic Acid) 1 mg DAILY PO Last administered on 01/03/17 09:57; Admin Dose 1 MG; Start 01/02/17 at 09:00 Gabapentin (Neurontin) 300 mg TID PO Last administered on 01/03/17 12:35; Admin Dose 300 MG; Start 01/02/17 at 09:00 Magnesium Oxide (Mag-Ox 400) 400 mg BID PO Last administered on 01/03/17 09:57 ; Admin Dose 400 MG; Start 01/02/17 at 09:00 Sertraline HCl (Zoloft) 100 mg DAILY PO Last administered on 01/03/17 09:57; Admin Dose 100 MG; Start 01/02/17 at 09:00 Tamsulosin HCl (Flomax) 0.4 mg HS PO Last administered on 01/02/17 20:36; Admin Dose 0.4 MG; Start 01/02/17 at 21:00 Zolpidem Tartrate (Ambien) 10 mg HS PRN PO SLEEP; Start 01/02/17 at 02:30 Pantoprazole (Protonix Tab) 40 mg DAILY@06 PO Last administered on 01/03/17 05: 43; Admin Dose 40 MG; Start 01/03/17 at 06:00 Isosorbide Dinitrate (Isordil) 10 mg TID PO Last administered on 01/03/17 12:35 ; Admin Dose 10 MG; Start 01/02/17 at 21:00 Cyclosporine (Sandimmune) 100 mg BID PO ; Start 01/03/17 at 21:00 Prednisolone (Prednisolone) 5 mg DAILY PO ; Start 01/04/17 at 09:00 RASHID PALACIOS Jan 03, 2017 18:52
--- NOTE | 2017-01-03 19:17 | CONS ---
Date/Time of Note Date/Time of Note DATE: 01/03/17 TIME: 19:12 Assessment/Plan Assessment/Plan Chief Complaint/Hosp Course IMPRESSION: 1. Chest pain, assess for acute coronary syndrome with patient having a negative stress in June 2016 for ischemia.-negative troponin x 3. Neg VQ scan today 2. History of cardiomyopathy, decreased left ventricular ejection fraction, last being approximately 44% by stress. 3. Abnormal electrocardiogram with isolated T-wave flattening in lead III. 4. History of renal transplant. 5. History of dyslipidemia-LDL 127 HDL 33 6. Anxiety. Recc: -Tele -Contnue isordil -add low dose BB -Continue immunosuppresives -AM lexiscan Problems: Consultation Date/Type/Reason Admit Date/Time January 02, 2017 at 16:27 Initial Consult Date 01/02/2017 Type of Consultation: Cardiology Reason for Consultation chest pain Referring Provider: NIKOLAY PAGAN MD Exam/Review of Systems Vital Signs Vitals Vital Signs Date Time Temp Pulse Resp B/P Pulse Ox O2 Delivery O2 Flow Rate FiO2 01/03/17 16:30 107 01/03/17 15:31 98.1 18 117/60 97 01/02/17 02:45 Room Air Intake and Output 01/02/17 01/02/17 01/03/17 15:00 23:00 07:00 Intake Total 1000 ml Balance 1000 ml Exam Review of Systems: CONSTITUTIONAL: No fevers, chills. PULMONARY: No sob CARDIOVASCULAR: ongoing c/o chest pain GASTROINTESTINAL: No nausea/vomiting. GENITOURINARY: No hematuria/dysuria. MUSCULOSKELETAL: No myagias/arthalgias. PSYCHIATRIC: The patient denies depression. NEUROLOGIC: No weakness Constitutional: alert, oriented Psych: no complaints Head: normocephalic ENMT: mucosa pink and moist Neck: jvd (9 cm water), supple Respiratory: clear to auscultation Cardiovascular: regular rate and rhythm Gastrointestinal: non-tender, soft Musculoskeletal: muscle tone (normal) Extremities: edema (none) Neurological: other (No focal deficits) Results Result Diagram: 01/03/17 0720 01/03/17 0720 Results 24 hrs Laboratory Tests Test 01/03/17 06:00 01/03/17 07:20 01/03/17 11:02 01/03/17 12:27 Urine Color LT. YELLOW Urine Clarity CLEAR Urine pH 6.0 Urine Specific [place] 1.010 Urine Ketones NEGATIVE Urine Nitrite NEGATIVE Urine Bilirubin NEGATIVE Urine Urobilinogen 0.2 E.U./dL Urine Leukocyte Esterase NEGATIVE Urine Microscopic RBC 0-2 Urine Microscopic WBC 2-5 Urine Epithelial Cells RARE Urine Bacteria RARE Urine Hemoglobin NEGATIVE Urine Glucose NEGATIVE Urine Total Protein TRACE White Blood Count 7.7 # Red Blood Count 4.96 Hemoglobin 14.1 Hematocrit 42.7 Mean Corpuscular Volume 86.1 Mean Corpuscular Hemoglobin 28.4 L Mean Corpuscular Hemoglobin Concent 33.0 Red Cell Distribution Width 14.1 Platelet Count 246 Mean Platelet Volume 10.7 H Neutrophils % 64.8 Lymphocytes % 21.5 Monocytes % 9.5 Eosinophils % 2.7 Basophils % 0.3 Nucleated Red Blood Cells % 0.0 Neutrophils # 5.0 Lymphocytes # 1.7 Monocytes # 0.7 Eosinophils # 0.2 Basophils # 0.0 Nucleated Red Blood Cells # 0.0 Sodium Level 135 Potassium Level 4.4 Chloride Level 103 Carbon Dioxide Level 28 Anion Gap 8 Blood Urea Nitrogen 15 Creatinine 1.07 Glucose Level 91 Hemoglobin A1c 5.7 Calcium Level 9.4 Total Bilirubin 0.7 Direct Bilirubin 0.00 Indirect Bilirubin 0.7 Aspartate Amino Transf (AST/SGOT) 26 Alanine Aminotransferase (ALT/SGPT) 36 Alkaline Phosphatase 94 Total Protein 6.9 # Albumin 4.6 Globulin 2.30 Albumin/Globulin Ratio 2.00 Triglycerides Level 258 H Cholesterol Level 212 H LDL Cholesterol, Calculated 127 HDL Cholesterol 33 Cholesterol/HDL Ratio 6.4 Thyroid Stimulating Hormone (TSH) 1.890 Urine Random Sodium 29 L Bedside Glucose 117 Medications Medications Current Medications Sodium Chloride (NS) 1,000 ml @ 50 mls/hr Q20H IV Last administered on 17:39; Admin Dose 50 MLS/HR; Start 01/02/17 at 02:27 Lorazepam (Ativan) 0.5 mg Q6H PRN IV ANXIETY; Start 01/02/17 at 02:30 Ondansetron HCl (Zofran Inj) 4 mg Q6H PRN IV NAUSEA AND/OR VOMITING; Start at 02:30 Morphine Sulfate (morphine) 2 mg Q4H PRN IV PAIN LEVEL 7-10 Last administered on 01/03/17 18:51; Admin Dose 2 MG; Start 01/02/17 at 02:30 Folic Acid (Folic Acid) 1 mg DAILY PO Last administered on 01/03/17 09:57; Admin Dose 1 MG; Start 01/02/17 at 09:00 Gabapentin (Neurontin) 300 mg TID PO Last administered on 01/03/17 12:35; Admin Dose 300 MG; Start 01/02/17 at 09:00 Magnesium Oxide (Mag-Ox 400) 400 mg BID PO Last administered on 01/03/17 09:57 ; Admin Dose 400 MG; Start 01/02/17 at 09:00 Sertraline HCl (Zoloft) 100 mg DAILY PO Last administered on 01/03/17 09:57; Admin Dose 100 MG; Start 01/02/17 at 09:00 Tamsulosin HCl (Flomax) 0.4 mg HS PO Last administered on 01/02/17 20:36; Admin Dose 0.4 MG; Start 01/02/17 at 21:00 Zolpidem Tartrate (Ambien) 10 mg HS PRN PO SLEEP; Start 01/02/17 at 02:30 Pantoprazole (Protonix Tab) 40 mg DAILY@06 PO Last administered on 01/03/17 05: 43; Admin Dose 40 MG; Start 01/03/17 at 06:00 Isosorbide Dinitrate (Isordil) 10 mg TID PO Last administered on 01/03/17 12:35 ; Admin Dose 10 MG; Start 01/02/17 at 21:00 Cyclosporine (Sandimmune) 100 mg BID PO ; Start 01/03/17 at 21:00 Prednisolone (Prednisolone) 5 mg DAILY PO ; Start 01/04/17 at 09:00 DASHA PRUITT Jan 03, 2017 19:17
[2017-01-03] MEDS: TAMSULOSIN (SR) 0.4 MG CAP PO SCH (20:29)
[2017-01-03] MEDS ORDERED: CYCLOSPORINE 100 MG CAP PO SCH (21:00)
[2017-01-03] MEDS: CYCLOSPORINE 25 MG CAP PO SCH (21:36)
[2017-01-04] VITALS (9 sets, daily range): BP systolic 102–118; BP diastolic 65–79; PULSE 66–120; RESP 18–19
[2017-01-04] MEDS: morphine 2 MG INJ IV PRN ×5 (03:28→23:31)
[2017-01-04] MEDS: PANTOPRAZOLE (EC) 40 MG TAB PO SCH (05:59)
[2017-01-04 08:03] LABS: ADD SCAN DIFF NO
[2017-01-04 08:27] LABS: CALCIUM 9.2 mg/dl (8.4-10.2); CREATININE 1.03 mg/dl (0.61-1.24); PHOSPHORUS 4.2 mg/dl (2.5-4.9)
[2017-01-04] MEDS: ISOSORBIDE DINITRATE 10 MG TAB PO SCH ×4 (09:00→21:01)
[2017-01-04] MEDS: GABAPENTIN 300 MG CAP PO SCH ×4 (09:00→21:01)
[2017-01-04 10:14] LABS: BASOPHILS % 0.1 % (0.0-2.0); EOSINOPHILS # 0.2 10^3/ul (0.0-0.5); EOSINOPHILS % 2.6 % (0.0-7.0); HEMATOCRIT 41.1 % (42.0-52.0); HEMOGLOBIN 13.4 g/dl (14.0-18.0); LYMPHOCYTES # 2.2 10^3/ul (0.8-2.9); LYMPHOCYTES % 23.5 % (15.0-51.0); MEAN CORPUSCULAR HEMOGLOBIN 28.2 pg (29.0-33.0); MEAN CORPUSCULAR HGB CONC 32.6 g/dl (32.0-37.0); MEAN CORPUSCULAR VOLUME 86.5 fl (82.0-101.0); MEAN PLATELET VOLUME 11.3 fl (7.4-10.4); MONOCYTE # 0.9 10^3/ul (0.3-0.9); MONOCYTES % 9.3 % (0.0-11.0); NEUTROPHILS % 63.5 % (39.0-77.0); PLATELET COUNT 245 10^3/UL (140-415); RED BLOOD COUNT 4.75 10^6/ul (4.70-6.10); RED CELL DISTRIBUTION WIDTH 14.2 % (11.5-14.5); WHITE BLOOD COUNT 9.4 10^3/ul (4.8-10.8)
[2017-01-04] MEDS ORDERED: REGADENOSON 0.4 MG/5 ML SYG ONE (11:21)
--- NOTE | 2017-01-04 13:07 | CONS ---
Date/Time of Note Date/Time of Note DATE: 01/04/17 TIME: 13:04 Assessment/Plan Assessment/Plan Chief Complaint/Hosp Course IMPRESSION: 1. Chest pain, assess for acute coronary syndrome with patient having a negative stress in June 2016 for ischemia.-negative troponin x 3. Neg VQ scan today 2. History of cardiomyopathy, decreased left ventricular ejection fraction, last being approximately 44% by stress. 3. Abnormal electrocardiogram with isolated T-wave flattening in lead III. 4. History of renal transplant. 5. History of dyslipidemia-LDL 127 HDL 33 6. Anxiety. Recc: -Tele -Contnue isordil -add low dose BB -Continue immunosuppresives -Lexiscan today Problems: Consultation Date/Type/Reason Admit Date/Time Jan 03, 2017 at 16:27 Initial Consult Date 01/02/2017 Type of Consultation: Cardiology Reason for Consultation chest pain Referring Provider: NIKOLAY PAGAN MD Exam/Review of Systems Vital Signs Vitals Vital Signs Date Time Temp Pulse Resp B/P Pulse Ox O2 Delivery O2 Flow Rate FiO2 01/04/17 08:21 66 01/04/17 07:47 97.7 18 115/77 96 01/04/17 00:00 Room Air Intake and Output 01/03/17 01/03/17 01/04/17 15:00 23:00 07:00 Intake Total 850 ml 150 ml Balance 850 ml 150 ml Exam Review of Systems: CONSTITUTIONAL: No fevers, chills. PULMONARY: No sob CARDIOVASCULAR:intermittent chest pain GASTROINTESTINAL: No nausea/vomiting. GENITOURINARY: No hematuria/dysuria. MUSCULOSKELETAL: No myagias/arthalgias. PSYCHIATRIC: The patient denies depression. NEUROLOGIC: No weakness Constitutional: alert Psych: no complaints ENMT: mucosa pink and moist Neck: jvd (9 cm water), supple Respiratory: diminished breath sounds Cardiovascular: regular rate and rhythm Gastrointestinal: non-tender, soft Extremities: edema (none) Neurological: other (No focal deficits) Results Result Diagram: 01/04/1727 01/04/17 0727 Results 24 hrs Laboratory Tests Test 01/04/17 07:27 White Blood Count 9.4 # Red Blood Count 4.75 Hemoglobin 13.4 L Hematocrit 41.1 L Mean Corpuscular Volume 86.5 Mean Corpuscular Hemoglobin 28.2 L Mean Corpuscular Hemoglobin Concent 32.6 Red Cell Distribution Width 14.2 Platelet Count 245 Mean Platelet Volume 11.3 H Neutrophils % 63.5 Lymphocytes % 23.5 Monocytes % 9.3 Eosinophils % 2.6 Basophils % 0.1 Nucleated Red Blood Cells % 0.0 Neutrophils # 6.0 Lymphocytes # 2.2 Monocytes # 0.9 Eosinophils # 0.2 Basophils # 0.0 Nucleated Red Blood Cells # 0.0 Sodium Level 137 Potassium Level 4.0 Chloride Level 102 Carbon Dioxide Level 28 Anion Gap 11 Blood Urea Nitrogen 17 Creatinine 1.03 Glucose Level 86 Calcium Level 9.2 Phosphorus Level 4.2 Magnesium Level 2.0 Medications Medications Current Medications Sodium Chloride (NS) 1,000 ml @ 50 mls/hr Q20H IV Last administered on 17:39; Admin Dose 50 MLS/HR; Start 01/02/17 at 02:27 Lorazepam (Ativan) 0.5 mg Q6H PRN IV ANXIETY; Start 01/02/17 at 02:30 Ondansetron HCl (Zofran Inj) 4 mg Q6H PRN IV NAUSEA AND/OR VOMITING; Start at 02:30 Morphine Sulfate (morphine) 2 mg Q4H PRN IV PAIN LEVEL 7-10 Last administered on 01/04/17 08:43; Admin Dose 2 MG; Start 01/02/17 at 02:30 Folic Acid (Folic Acid) 1 mg DAILY PO Last administered on 01/03/17 09:57; Admin Dose 1 MG; Start 01/02/17 at 09:00 Gabapentin (Neurontin) 300 mg TID PO Last administered on 01/03/17 20:29; Admin Dose 300 MG; Start 01/02/17 at 09:00 Magnesium Oxide (Mag-Ox 400) 400 mg BID PO Last administered on 01/03/17 20:29 ; Admin Dose 400 MG; Start 01/02/17 at 09:00 Sertraline HCl (Zoloft) 100 mg DAILY PO Last administered on 01/03/17 09:57; Admin Dose 100 MG; Start 01/02/17 at 09:00 Tamsulosin HCl (Flomax) 0.4 mg HS PO Last administered on 01/03/17 20:29; Admin Dose 0.4 MG; Start 01/02/17 at 21:00 Zolpidem Tartrate (Ambien) 10 mg HS PRN PO SLEEP; Start 01/02/17 at 02:30 Pantoprazole (Protonix Tab) 40 mg DAILY@06 PO Last administered on 01/04/17 05: 59; Admin Dose 40 MG; Start 01/03/17 at 06:00 Isosorbide Dinitrate (Isordil) 10 mg TID PO Last administered on 01/03/17 20:30 ; Admin Dose 10 MG; Start 01/02/17 at 21:00 Prednisolone (Prednisolone) 5 mg DAILY PO ; Start 01/04/17 at 09:00 Cyclosporine (Sandimmune) 100 mg BID PO Last administered on 01/03/17 21:36; Admin Dose 100 MG; Start 01/03/17 at 21:00 DASHA PRUITT Jan 04, 2017 13:07
--- NOTE | 2017-01-04 13:20 | RADRPT ---
PROCEDURE: Lexiscan myocardial perfusion study CLINICAL INDICATION: 41 -year-old patient complaining of chest pain. TECHNIQUE: Lexiscan 0.4 mg intravenously separate acquisition gated myocardial perfusion SPECT usi ng Tc 99m Myoview 31.3 mCi intravenously at stress and Tc-99m Myoview, 9.3 mCi intravenously at rest was performed using the rest/stress sequence. Poststress Myoview SPECT images were obtained in the supine position. COMPARISON: June 10, 2016. FINDINGS: Perfusion images reveal no evidence of perfusion defects. Lexiscan post stress gated SPECT images demonstrate no wall motion abnormalities. IMPRESSION: 1. No evidence of new perfusion defects. 2. No wall motion abnormalities. 3. The left ventricle ejection fraction at stress is 53% (prior EF was 44%). A call report was made to Dr. Salmon at 01:19 p.m. on January 04, 2017. RPTAT: HH .Antoinette Pierre MD, MD Date Time Electronically viewed and signed by .Antoinette Pierre MD, on 01/04/2017 13:20 .L/
[2017-01-04] MEDS: FOLIC ACID 1 MG TAB PO SCH (13:22)
[2017-01-04] MEDS: predniSOLONE 5 MG TAB PO SCH (13:22)
[2017-01-04] MEDS: SERTRALINE 100 MG TAB PO SCH (13:23)
[2017-01-04] MEDS: MAGNESIUM OXIDE 400 MG TAB PO SCH ×2 (13:24→21:01)
[2017-01-04] MEDS: CYCLOSPORINE 25 MG CAP PO SCH ×2 (13:26→21:00)
--- NOTE | 2017-01-04 14:21 | CONS ---
Date/Time of Note Date/Time of Note DATE: 01/04/17 TIME: 14:16 Assessment/Plan Assessment/Plan Chief Complaint/Hosp Course 1. Living related donor Kidney Transplant in 2009 , renal function is normal and stable on current medication . Continue current medication . 2. Chest pain , cardiac w/u is in progress 3. HTN .controlled Problems: Consultation Date/Type/Reason Admit Date/Time Jan 03, 2017 at 16:27 Initial Consult Date Type of Consultation: Cardiology Referring Provider: NIKOLAY PAGAN MD 24 HR Interval Summary Free Text/Dictation He is having just slight chest pain today . Constitutional: improved Exam/Review of Systems Vital Signs Vitals Vital Signs Date Time Temp Pulse Resp B/P Pulse Ox O2 Delivery O2 Flow Rate FiO2 01/04/17 08:21 66 01/04/17 07:47 97.7 18 115/77 96 01/04/17 00:00 Room Air Intake and Output 01/03/17 01/03/17 01/04/17 15:00 23:00 07:00 Intake Total 850 ml 150 ml Balance 850 ml 150 ml Exam Constitutional: alert, oriented, well developed Respiratory: clear to auscultation, normal air movement Cardiovascular: regular rate and rhythm Gastrointestinal: soft Musculoskeletal: nl extremities to inspection Results Result Diagram: 01/04/17 0727 01/04/17 0727 Results 24 hrs Laboratory Tests Test 01/04/17 07:27 White Blood Count 9.4 # Red Blood Count 4.75 Hemoglobin 13.4 L Hematocrit 41.1 L Mean Corpuscular Volume 86.5 Mean Corpuscular Hemoglobin 28.2 L Mean Corpuscular Hemoglobin Concent 32.6 Red Cell Distribution Width 14.2 Platelet Count 245 Mean Platelet Volume 11.3 H Neutrophils % 63.5 Lymphocytes % 23.5 Monocytes % 9.3 Eosinophils % 2.6 Basophils % 0.1 Nucleated Red Blood Cells % 0.0 Neutrophils # 6.0 Lymphocytes # 2.2 Monocytes # 0.9 Eosinophils # 0.2 Basophils # 0.0 Nucleated Red Blood Cells # 0.0 Sodium Level 137 Potassium Level 4.0 Chloride Level 102 Carbon Dioxide Level 28 Anion Gap 11 Blood Urea Nitrogen 17 Creatinine 1.03 Glucose Level 86 Calcium Level 9.2 Phosphorus Level 4.2 Magnesium Level 2.0 Medications Medications Current Medications Sodium Chloride (NS) 1,000 ml @ 50 mls/hr Q20H IV Last administered on 17:39; Admin Dose 50 MLS/HR; Start 01/02/17 at 02:27 Lorazepam (Ativan) 0.5 mg Q6H PRN IV ANXIETY; Start 01/02/17 at 02:30 Ondansetron HCl (Zofran Inj) 4 mg Q6H PRN IV NAUSEA AND/OR VOMITING; Start at 02:30 Morphine Sulfate (morphine) 2 mg Q4H PRN IV PAIN LEVEL 7-10 Last administered on 01/04/17 13:36; Admin Dose 2 MG; Start 01/02/17 at 02:30 Folic Acid (Folic Acid) 1 mg DAILY PO Last administered on 01/04/17 13:22; Admin Dose 1 MG; Start 01/02/17 at 09:00 Gabapentin (Neurontin) 300 mg TID PO Last administered on 01/04/17 13:28; Admin Dose 300 MG; Start 01/02/17 at 09:00 Magnesium Oxide (Mag-Ox 400) 400 mg BID PO Last administered on 01/04/17 13:24 ; Admin Dose 400 MG; Start 01/02/17 at 09:00 Sertraline HCl (Zoloft) 100 mg DAILY PO Last administered on 01/04/17 13:23; Admin Dose 100 MG; Start 01/02/17 at 09:00 Tamsulosin HCl (Flomax) 0.4 mg HS PO Last administered on 01/03/17 20:29; Admin Dose 0.4 MG; Start 01/02/17 at 21:00 Zolpidem Tartrate (Ambien) 10 mg HS PRN PO SLEEP; Start 01/02/17 at 02:30 Pantoprazole (Protonix Tab) 40 mg DAILY@06 PO Last administered on 01/04/17 05: 59; Admin Dose 40 MG; Start 01/03/17 at 06:00 Isosorbide Dinitrate (Isordil) 10 mg TID PO Last administered on 01/04/17 13:26 ; Admin Dose 10 MG; Start 01/02/17 at 21:00 Prednisolone (Prednisolone) 5 mg DAILY PO Last administered on 01/04/17 13:22; Admin Dose 5 MG; Start 01/04/17 at 09:00 Cyclosporine (Sandimmune) 100 mg BID PO Last administered on 01/04/17t 13:26; Admin Dose 100 MG; Start 01/03/17 at 21:00 DEVORAH MCFADDEN MD Jan 04, 2017 14:21
[2017-01-04] MEDS: SOD CHLORIDE 0.9% 1,000 ML IV SCH (14:27)
[2017-01-04] MEDS ORDERED: LORAZEPAM 0.5 MG TAB PO PRN (17:30)
--- NOTE | 2017-01-04 18:24 | PN ---
Date/Time of Note Date/Time of Note DATE: 01/04/17 TIME: 18:23 Assessment/Plan VTE Prophylaxis VTE Prophylaxis Intervention: SCD's Lines/Catheters [facility] Peripheral IV Urinary Cath still in place: No Assessment/Plan Chief Complaint/Hosp Course Patient continues to complain of cheat pain, tachycardic, s/p stress test today. ASSESSMENT AND PLAN: 1. Chest pain. S/p stress test. 2. Status post renal transplant. Immunosuppressive regiment per Dr Shields. 3. History of gastritis. Continue Protonix. 4. Dyslipidemia. 5. Anxiety, depression. Continue sertraline. Further recommendations based on clinical course. Plan of care discussed with Dr. Wills. Problems: Exam/Review of Systems Vital Signs Vitals Vital Signs Date Time Temp Pulse Resp B/P Pulse Ox O2 Delivery O2 Flow Rate FiO2 01/04/17 16:07 120 01/04/17 15:47 98.7 18 108/67 94 01/04/17 00:00 Room Air Intake and Output 01/03/17 01/03/17 01/04/17 15:00 23:00 07:00 Intake Total 850 ml 150 ml Balance 850 ml 150 ml Exam Constitutional: alert, oriented Head: normocephalic Neck: supple Respiratory: clear to auscultation Cardiovascular: nl pulses Gastrointestinal: non-tender, soft Musculoskeletal: nl extremities to inspection Extremities: normal pulses Results Result Diagram: 01/04/1727 01/04/17 0727 Results 24 hrs Laboratory Tests Test 01/04/17 07:27 White Blood Count 9.4 # Red Blood Count 4.75 Hemoglobin 13.4 L Hematocrit 41.1 L Mean Corpuscular Volume 86.5 Mean Corpuscular Hemoglobin 28.2 L Mean Corpuscular Hemoglobin Concent 32.6 Red Cell Distribution Width 14.2 Platelet Count 245 Mean Platelet Volume 11.3 H Neutrophils % 63.5 Lymphocytes % 23.5 Monocytes % 9.3 Eosinophils % 2.6 Basophils % 0.1 Nucleated Red Blood Cells % 0.0 Neutrophils # 6.0 Lymphocytes # 2.2 Monocytes # 0.9 Eosinophils # 0.2 Basophils # 0.0 Nucleated Red Blood Cells # 0.0 Sodium Level 137 Potassium Level 4.0 Chloride Level 102 Carbon Dioxide Level 28 Anion Gap 11 Blood Urea Nitrogen 17 Creatinine 1.03 Glucose Level 86 Calcium Level 9.2 Phosphorus Level 4.2 Magnesium Level 2.0 Medications Medications Current Medications Sodium Chloride (NS) 1,000 ml @ 50 mls/hr Q20H IV Last administered on 17:39; Admin Dose 50 MLS/HR; Start 01/02/17 at 02:27 Ondansetron HCl (Zofran Inj) 4 mg Q6H PRN IV NAUSEA AND/OR VOMITING; Start at 02:30 Morphine Sulfate (morphine) 2 mg Q4H PRN IV PAIN LEVEL 7-10 Last administered on 01/04/17 13:36; Admin Dose 2 MG; Start 01/02/17 at 02:30 Folic Acid (Folic Acid) 1 mg DAILY PO Last administered on 01/04/17 13:22; Admin Dose 1 MG; Start 01/02/17 at 09:00 Gabapentin (Neurontin) 300 mg TID PO Last administered on 01/04/17 13:28; Admin Dose 300 MG; Start 01/02/17 at 09:00 Magnesium Oxide (Mag-Ox 400) 400 mg BID PO Last administered on 01/04/17 13:24 ; Admin Dose 400 MG; Start 01/02/17 at 09:00 Sertraline HCl (Zoloft) 100 mg DAILY PO Last administered on 01/04/17 13:23; Admin Dose 100 MG; Start 01/02/17 at 09:00 Tamsulosin HCl (Flomax) 0.4 mg HS PO Last administered on 01/03/17 20:29; Admin Dose 0.4 MG; Start 01/02/17 at 21:00 Zolpidem Tartrate (Ambien) 10 mg HS PRN PO SLEEP; Start 01/02/17 at 02:30 Pantoprazole (Protonix Tab) 40 mg DAILY@06 PO Last administered on 01/04/17 05: 59; Admin Dose 40 MG; Start 01/03/17 at 06:00 Isosorbide Dinitrate (Isordil) 10 mg TID PO Last administered on 01/04/17 13:26 ; Admin Dose 10 MG; Start 01/02/17 at 21:00 Prednisolone (Prednisolone) 5 mg DAILY PO Last administered on 01/04/17 13:22; Admin Dose 5 MG; Start 01/04/17 at 09:00 Cyclosporine (Sandimmune) 100 mg BID PO Last administered on 01/04/17t 13:26; Admin Dose 100 MG; Start 01/03/17 at 21:00 Lorazepam (Ativan) 0.5 mg Q6H PRN PO ANXIETY; Start 01/04/17 at 17:30 NADEEM GUO Jan 04, 2017 18:24
[2017-01-04] MEDS: TAMSULOSIN (SR) 0.4 MG CAP PO SCH (21:00)
[2017-01-05] VITALS (12 sets, daily range): BP systolic 100–122; BP diastolic 59–87; PULSE 64–87; RESP 17–19
[2017-01-05] MEDS: morphine 2 MG INJ IV PRN ×5 (03:28→21:16)
[2017-01-05] MEDS: PANTOPRAZOLE (EC) 40 MG TAB PO SCH (06:15)
[2017-01-05] MEDS: GABAPENTIN 300 MG CAP PO SCH ×3 (09:22→21:18)
[2017-01-05] MEDS: FOLIC ACID 1 MG TAB PO SCH (09:22)
[2017-01-05] MEDS: CYCLOSPORINE 25 MG CAP PO SCH ×2 (09:22→21:19)
[2017-01-05] MEDS: ISOSORBIDE DINITRATE 10 MG TAB PO SCH ×3 (09:23→21:19)
[2017-01-05] MEDS: MAGNESIUM OXIDE 400 MG TAB PO SCH ×2 (09:23→21:00)
[2017-01-05] MEDS: SERTRALINE 100 MG TAB PO SCH (09:23)
[2017-01-05] MEDS: predniSOLONE 5 MG TAB PO SCH (09:23)
--- NOTE | 2017-01-05 11:26 | CONS ---
Date/Time of Note Date/Time of Note DATE: 01/05/17 TIME: 11:25 Assessment/Plan Assessment/Plan Additional Assessment/Plan 1. Chest pain, assess for acute coronary syndrome with patient having a negative stress in June 2016 for ischemia.-negative troponin x 3. Neg VQ scan today 2. History of cardiomyopathy, decreased left ventricular ejection fraction, last being approximately 44% by stress- now EF 5)s, no ischemia 3. Abnormal electrocardiogram with isolated T-wave flattening in lead III. 4. History of renal transplant - renal team to follow 5. History of dyslipidemia-LDL 127 HDL 33 6. Anxiety- Rx as need Consultation Date/Type/Reason Admit Date/Time Jan 03, 2017 at 16:27 Initial Consult Date Type of Consultation: Cardiology Referring Provider: NIKOLAY PAGAN MD 24 HR Interval Summary Free Text/Dictation NO acute change - stress test negative, EF > 50% ROS: No fever, no chills, no nausea, no vomiting, no diarrhea/constipation No recent weight changes No chest pain, no PND, no orthopnea No dizziness, blurred vision No thirst, no heat or cold intolerance Exam/Review of Systems Vital Signs Vitals Vital Signs Date Time Temp Pulse Resp B/P Pulse Ox O2 Delivery O2 Flow Rate FiO2 01/05/17 08:09 64 01/05/17 07:25 98.1 19 112/70 95 01/04/17 00:00 Room Air Intake and Output 01/04/17 01/04/17 01/05/17 15:00 23:00 07:00 Intake Total 800 ml Output Total 1200 ml Balance -400 ml Exam General: WN/WD/NAD, AOx 3 HEENT: Unicetric/atraumatic/EOMI (follow commands) NECK: JVD elevated, no thyromegaly Lymph: no lymphadenopathy HEART: regular with no S3, II/ systolic murmur at apex LUNGS: Coarse sounds ABD: soft, NT, ND, +BS : Intact Neuro: non focal SKIN: chronic changes EXT: trace edema Results Result Diagram: 01/04/1772601/04/17726 Medications Medications Current Medications Sodium Chloride (NS) 1,000 ml @ 50 mls/hr Q20H IV Last administered on t 17:39; Admin Dose 50 MLS/HR; Start 01/02/17 at 02:27 Ondansetron HCl (Zofran Inj) 4 mg Q6H PRN IV NAUSEA AND/OR VOMITING; Start at 02:30 Morphine Sulfate (morphine) 2 mg Q4H PRN IV PAIN LEVEL 7-10 Last administered on 01/05/17 07:55; Admin Dose 2 MG; Start 01/02/17 at 02:30 Folic Acid (Folic Acid) 1 mg DAILY PO Last administered on 01/05/17 09:22; Admin Dose 1 MG; Start 01/02/17 at 09:00 Gabapentin (Neurontin) 300 mg TID PO Last administered on 01/05/17 09:22; Admin Dose 300 MG; Start 01/02/17 at 09:00 Magnesium Oxide (Mag-Ox 400) 400 mg BID PO Last administered on 01/05/17 09:23 ; Admin Dose 400 MG; Start 01/02/17 at 09:00 Sertraline HCl (Zoloft) 100 mg DAILY PO Last administered on 01/05/17 09:23; Admin Dose 100 MG; Start 01/02/17 at 09:00 Tamsulosin HCl (Flomax) 0.4 mg HS PO Last administered on 01/04/17 21:00; Admin Dose 0.4 MG; Start 01/02/17 at 21:00 Zolpidem Tartrate (Ambien) 10 mg HS PRN PO SLEEP; Start 01/02/17 at 02:30 Pantoprazole (Protonix Tab) 40 mg DAILY@06 PO Last administered on 01/05/17 06: 15; Admin Dose 40 MG; Start 01/03/17 at 06:00 Isosorbide Dinitrate (Isordil) 10 mg TID PO Last administered on 01/05/17 09:23 ; Admin Dose 10 MG; Start 01/02/17 at 21:00 Prednisolone (Prednisolone) 5 mg DAILY PO Last administered on 01/05/17 09:23; Admin Dose 5 MG; Start 01/04/17 at 09:00 Cyclosporine (Sandimmune) 100 mg BID PO Last administered on 01/05/17 09:22; Admin Dose 100 MG; Start 01/03/17 at 21:00 Lorazepam (Ativan) 0.5 mg Q6H PRN PO ANXIETY; Start 01/04/17 at 17:30 Atorvastatin Calcium (Lipitor) 20 mg HS PO ; Start 01/05/17 at 21:00 DEE ENCARNACION MD Jan 05, 2017 11:26
[2017-01-05] MEDS: SOD CHLORIDE 0.9% 1,000 ML IV SCH (11:33)
--- NOTE | 2017-01-05 15:11 | CONS ---
Date/Time of Note Date/Time of Note DATE: 01/05/17 TIME: 15:10 Assessment/Plan Assessment/Plan Additional Assessment/Plan 1. Living related donor Kidney Transplant in 2009 , renal function is normal and stable on current medication . Continue current medication .am labs 2. Chest pain , cardiac w/u is in progress / h/o cad with negative stress test in the past. vq scan today 3. HTN .controlled Consultation Date/Type/Reason Admit Date/Time Jan 03, 2017 at 16:27 Initial Consult Date Type of Consultation: Cardiology Referring Provider: NIKOLAY PAGAN MD 24 HR Interval Summary Free Text/Dictation doing well. no issues. continues to have some chest discomfort Exam/Review of Systems Vital Signs Vitals Vital Signs Date Time Temp Pulse Resp B/P Pulse Ox O2 Delivery O2 Flow Rate FiO2 01/05/17 12:04 84 01/05/17 11:47 97.6 17 119/85 95 01/04/17 00:00 Room Air Intake and Output 01/04/17 01/04/17 01/05/17 15:00 23:00 07:00 Intake Total 800 ml Output Total 1200 ml Balance -400 ml Exam Constitutional: alert, oriented, well developed Psych: no complaints Head: normocephalic Eyes: nl conjunctiva ENMT: nl external ears & nose Neck: jvd, non-tender, supple Respiratory: clear to auscultation Cardiovascular: edema, nl pulses, regular rate and rhythm Gastrointestinal: non-tender, soft Results Result Diagram: 01/04/17 0727 01/04/17 0727 Medications Medications Current Medications Sodium Chloride (NS) 1,000 ml @ 50 mls/hr Q20H IV Last administered on 11:33; Admin Dose 50 MLS/HR; Start 01/02/17 at 02:27 Ondansetron HCl (Zofran Inj) 4 mg Q6H PRN IV NAUSEA AND/OR VOMITING; Start at 02:30 Morphine Sulfate (morphine) 2 mg Q4H PRN IV PAIN LEVEL 7-10 Last administered on 01/05/17 12:24; Admin Dose 2 MG; Start 01/02/17 at 02:30 Folic Acid (Folic Acid) 1 mg DAILY PO Last administered on 01/05/17 09:22; Admin Dose 1 MG; Start 01/02/17 at 09:00 Gabapentin (Neurontin) 300 mg TID PO Last administered on 01/05/17 12:23; Admin Dose 300 MG; Start 01/02/17 at 09:00 Magnesium Oxide (Mag-Ox 400) 400 mg BID PO Last administered on 01/05/17 09:23 ; Admin Dose 400 MG; Start 01/02/17 at 09:00 Sertraline HCl (Zoloft) 100 mg DAILY PO Last administered on 01/05/17 09:23; Admin Dose 100 MG; Start 01/02/17 at 09:00 Tamsulosin HCl (Flomax) 0.4 mg HS PO Last administered on 01/04/17 21:00; Admin Dose 0.4 MG; Start 01/02/17 at 21:00 Zolpidem Tartrate (Ambien) 10 mg HS PRN PO SLEEP; Start 01/02/17 at 02:30 Pantoprazole (Protonix Tab) 40 mg DAILY@06 PO Last administered on 01/05/17 06: 15; Admin Dose 40 MG; Start 01/03/17 at 06:00 Isosorbide Dinitrate (Isordil) 10 mg TID PO Last administered on 01/05/17 12:23 ; Admin Dose 10 MG; Start 01/02/17 at 21:00 Prednisolone (Prednisolone) 5 mg DAILY PO Last administered on 01/05/17 09:23; Admin Dose 5 MG; Start 01/04/17 at 09:00 Cyclosporine (Sandimmune) 100 mg BID PO Last administered on 01/05/17 09:22; Admin Dose 100 MG; Start 01/03/17 at 21:00 Lorazepam (Ativan) 0.5 mg Q6H PRN PO ANXIETY; Start 01/04/17 at 17:30 Atorvastatin Calcium (Lipitor) 20 mg HS PO ; Start 01/05/17 at 21:00 DAI MALDONADO MD Jan 05, 2017 15:11
--- NOTE | 2017-01-05 19:35 | PN ---
Date/Time of Note Date/Time of Note DATE: 01/05/17 TIME: 19:34 Assessment/Plan VTE Prophylaxis VTE Prophylaxis Intervention: other Lines/Catheters IV Catheter Type (from Nrs): Saline Lock Urinary Cath still in place: No Assessment/Plan Assessment/Plan - Chest pain, assess for acute coronary syndrome SP negative stress in June 2016 for ischemia.c/o chest pain at times- none at present. - per cardiology - negative troponin x 3. - Neg VQ scan today - History of cardiomyopathy, decreased left ventricular ejection fraction, last being approximately 44% by stress- now EF 5)s, no ischemia - Status post renal transplant. Immunosuppressive regiment per Dr Shields. - History of gastritis. Continue Protonix. - History of dyslipidemia-LDL 127 HDL 33 - Anxiety, depression. Continue sertraline. Further recommendations depend upon patient clinical course Plan of dominga Wills/staff Subjective 24 Hr Interval Summary Free Text/Dictation nad,sitting up in bed, denies any chest pain, patient sister at bed side- all Qs answered.dw staff Respiratory: no complaints Cardiovascular: chest pain Gastrointestinal: no complaints Genitourinary: no complaints Musculoskeletal: no complaints Skin: no complaints Exam/Review of Systems Vital Signs Vitals Vital Signs Date Time Temp Pulse Resp B/P Pulse Ox O2 Delivery O2 Flow Rate FiO2 01/05/17 16:34 85 01/05/17 16:10 98.7 18 100/66 94 01/04/17 00:00 Room Air Intake and Output 01/04/17 01/04/17 01/05/17 15:00 23:00 07:00 Intake Total 800 ml Output Total 1200 ml Balance -400 ml Exam Constitutional: alert, oriented Psych: nl mood/affect Neck: non-tender, supple Respiratory: clear to auscultation, normal air movement Cardiovascular: nl pulses, regular rate and rhythm Gastrointestinal: non-tender, soft Musculoskeletal: nl extremities to inspection Neurological: nl mental status, nl speech Skin: nl turgor Results Result Diagram: 01/04/1772601/04/17726 Medications Medications Current Medications Sodium Chloride (NS) 1,000 ml @ 50 mls/hr Q20H IV Last administered on t 11:33; Admin Dose 50 MLS/HR; Start 01/02/17 at 02:27 Ondansetron HCl (Zofran Inj) 4 mg Q6H PRN IV NAUSEA AND/OR VOMITING; Start at 02:30 Morphine Sulfate (morphine) 2 mg Q4H PRN IV PAIN LEVEL 7-10 Last administered on 01/05/17 16:54; Admin Dose 2 MG; Start 01/02/17 at 02:30 Folic Acid (Folic Acid) 1 mg DAILY PO Last administered on 01/05/17 09:22; Admin Dose 1 MG; Start 01/02/17 at 09:00 Gabapentin (Neurontin) 300 mg TID PO Last administered on 01/05/17 12:23; Admin Dose 300 MG; Start 01/02/17 at 09:00 Magnesium Oxide (Mag-Ox 400) 400 mg BID PO Last administered on 01/05/17 09:23 ; Admin Dose 400 MG; Start 01/02/17 at 09:00 Sertraline HCl (Zoloft) 100 mg DAILY PO Last administered on 01/05/17 09:23; Admin Dose 100 MG; Start 01/02/17 at 09:00 Tamsulosin HCl (Flomax) 0.4 mg HS PO Last administered on 01/04/17 21:00; Admin Dose 0.4 MG; Start 01/02/17 at 21:00 Zolpidem Tartrate (Ambien) 10 mg HS PRN PO SLEEP; Start 01/02/17 at 02:30 Pantoprazole (Protonix Tab) 40 mg DAILY@06 PO Last administered on 01/05/17 06: 15; Admin Dose 40 MG; Start 01/03/17 at 06:00 Isosorbide Dinitrate (Isordil) 10 mg TID PO Last administered on 01/05/17 12:23 ; Admin Dose 10 MG; Start 01/02/17 at 21:00 Prednisolone (Prednisolone) 5 mg DAILY PO Last administered on 01/05/17 09:23; Admin Dose 5 MG; Start 01/04/17 at 09:00 Cyclosporine (Sandimmune) 100 mg BID PO Last administered on 01/05/17 09:22; Admin Dose 100 MG; Start 01/03/17 at 21:00 Lorazepam (Ativan) 0.5 mg Q6H PRN PO ANXIETY; Start 01/04/17 at 17:30 Atorvastatin Calcium (Lipitor) 20 mg HS PO ; Start 01/05/17 at 21:00 RASHID PALACIOS Jan 05, 2017 19:35
[2017-01-05] MEDS: ATORVASTATIN 20 MG TAB PO SCH (21:16)
[2017-01-05] MEDS: TAMSULOSIN (SR) 0.4 MG CAP PO SCH (21:16)
[2017-01-06] VITALS (12 sets, daily range): BP systolic 103–129; BP diastolic 70–87; PULSE 65–79; RESP 17–20
[2017-01-06] MEDS: morphine 2 MG INJ IV PRN ×6 (01:19→21:46)
[2017-01-06] MEDS: SOD CHLORIDE 0.9% 1,000 ML IV SCH ×2 (01:23→17:49)
[2017-01-06] MEDS: PANTOPRAZOLE (EC) 40 MG TAB PO SCH (05:54)
[2017-01-06 07:42] LABS: ADD SCAN DIFF NO
[2017-01-06 07:48] LABS: BASOPHILS % 0.3 % (0.0-2.0); EOSINOPHILS # 0.2 10^3/ul (0.0-0.5); EOSINOPHILS % 2.3 % (0.0-7.0); HEMATOCRIT 41.8 % (42.0-52.0); HEMOGLOBIN 13.6 g/dl (14.0-18.0); LYMPHOCYTES # 2.3 10^3/ul (0.8-2.9); MEAN CORPUSCULAR HEMOGLOBIN 28.1 pg (29.0-33.0); MEAN CORPUSCULAR HGB CONC 32.5 g/dl (32.0-37.0); MEAN CORPUSCULAR VOLUME 86.4 fl (82.0-101.0); MEAN PLATELET VOLUME 10.4 fl (7.4-10.4); MONOCYTE # 0.7 10^3/ul (0.3-0.9); MONOCYTES % 8.3 % (0.0-11.0); NEUTROPHIL # 5.6 10^3/ul (1.6-7.5); NEUTROPHILS % 62.2 % (39.0-77.0); PLATELET COUNT 251 10^3/UL (140-415); RED BLOOD COUNT 4.84 10^6/ul (4.70-6.10); RED CELL DISTRIBUTION WIDTH 13.8 % (11.5-14.5)
[2017-01-06 08:02] LABS: ALBUMIN 4.4 g/dl (3.3-4.9); ALBUMIN/GLOBULIN RATIO 1.62; BILIRUBIN,INDIRECT 0.3 mg/dl (0-1.1); BILIRUBIN,TOTAL 0.3 mg/dl (0.2-1.3); CALCIUM 9.3 mg/dl (8.4-10.2); CREATININE 1.04 mg/dl (0.61-1.24); TOTAL PROTEIN 7.1 g/dl (6.1-8.1)
[2017-01-06] MEDS: FOLIC ACID 1 MG TAB PO SCH (10:00)
[2017-01-06] MEDS: CYCLOSPORINE 25 MG CAP PO SCH ×2 (10:00→20:43)
[2017-01-06] MEDS: predniSOLONE 5 MG TAB PO SCH (10:00)
[2017-01-06] MEDS: GABAPENTIN 300 MG CAP PO SCH ×3 (10:00→20:34)
[2017-01-06] MEDS: MAGNESIUM OXIDE 400 MG TAB PO SCH ×2 (10:00→20:35)
[2017-01-06] MEDS: SERTRALINE 100 MG TAB PO SCH (10:00)
[2017-01-06] MEDS: ISOSORBIDE DINITRATE 10 MG TAB PO SCH ×3 (10:01→20:36)
--- NOTE | 2017-01-06 12:20 | CONS ---
Date/Time of Note Date/Time of Note DATE: 01/06/17 TIME: 12:18 Assessment/Plan Assessment/Plan Additional Assessment/Plan 1. Chest pain, assess for acute coronary syndrome with patient having a negative stress in June 2016 for ischemia.-negative troponin x 3. Neg VQ scan today - doubt ischemia 2. History of cardiomyopathy, decreased left ventricular ejection fraction, last being approximately 44% by stress- now EF 5)s, no ischemia 3. Abnormal electrocardiogram with isolated T-wave flattening in lead III. 4. History of renal transplant - renal team to follow - avoid nephrotoxic meds 5. History of dyslipidemia-LDL 127 HDL 33 6. Anxiety- Rx as need - better now Consultation Date/Type/Reason Admit Date/Time Jan 03, 2017 at 16:27 Type of Consultation: Cardiology Referring Provider: NIKOLAY PAGAN MD 24 HR Interval Summary Free Text/Dictation NO acute events - no CP now - stable on tele ROS: No fever, no chills, no nausea, no vomiting, no diarrhea/constipation No recent weight changes No chest pain, no PND, no orthopnea No dizziness, blurred vision No thirst, no heat or cold intolerance Exam/Review of Systems Vital Signs Vitals Vital Signs Date Time Temp Pulse Resp B/P Pulse Ox O2 Delivery O2 Flow Rate FiO2 01/06/17 12:09 98.6 62 17 124/84 95 01/04/17 00:00 Room Air Intake and Output 01/05/17 01/05/17 01/06/17 15:00 23:00 07:00 Intake Total 1500 ml 2900 ml Output Total 1400 ml 2000 ml Balance 100 ml 900 ml Exam General: WN/WD/NAD, AOx 3 HEENT: Unicetric/atraumatic/EOMI (follow commands) NECK: JVD elevated, no thyromegaly Lymph: no lymphadenopathy HEART: regular with no S3, II/ systolic murmur at apex LUNGS: Coarse sounds ABD: soft, NT, ND, +BS : Intact Neuro: non focal SKIN: chronic changes EXT: trace edema Results Result Diagram: 01/06/17 0722 01/06/17 0600 Results 24 hrs Laboratory Tests Test 01/06/17 06:00 01/06/17 07:22 Sodium Level 140 Potassium Level 4.0 Chloride Level 105 Carbon Dioxide Level 25 Anion Gap 14 Blood Urea Nitrogen 19 Creatinine 1.04 Glucose Level 84 Calcium Level 9.3 Total Bilirubin 0.3 Direct Bilirubin 0.00 Indirect Bilirubin 0.3 Aspartate Amino Transf (AST/SGOT) 21 Alanine Aminotransferase (ALT/SGPT) 33 Alkaline Phosphatase 87 Total Protein 7.1 Albumin 4.4 Globulin 2.70 Albumin/Globulin Ratio 1.62 White Blood Count 9.0 Red Blood Count 4.84 Hemoglobin 13.6 L Hematocrit 41.8 L Mean Corpuscular Volume 86.4 Mean Corpuscular Hemoglobin 28.1 L Mean Corpuscular Hemoglobin Concent 32.5 Red Cell Distribution Width 13.8 Platelet Count 251 Mean Platelet Volume 10.4 Neutrophils % 62.2 Lymphocytes % 26.0 Monocytes % 8.3 Eosinophils % 2.3 Basophils % 0.3 Nucleated Red Blood Cells % 0.0 Neutrophils # 5.6 Lymphocytes # 2.3 Monocytes # 0.7 Eosinophils # 0.2 Basophils # 0.0 Nucleated Red Blood Cells # 0.0 Medications Medications Current Medications Sodium Chloride (NS) 1,000 ml @ 50 mls/hr Q20H IV Last administered on 01:23; Admin Dose 50 MLS/HR; Start 01/02/17 at 02:27 Ondansetron HCl (Zofran Inj) 4 mg Q6H PRN IV NAUSEA AND/OR VOMITING; Start at 02:30 Morphine Sulfate (morphine) 2 mg Q4H PRN IV PAIN LEVEL 7-10 Last administered on 01/06/17 10:01; Admin Dose 2 MG; Start 01/02/17 at 02:30 Folic Acid (Folic Acid) 1 mg DAILY PO Last administered on 01/06/17 10:00; Admin Dose 1 MG; Start 01/02/17 at 09:00 Gabapentin (Neurontin) 300 mg TID PO Last administered on 01/06/17 10:00; Admin Dose 300 MG; Start 01/02/17 at 09:00 Magnesium Oxide (Mag-Ox 400) 400 mg BID PO Last administered on 01/06/17 10:00 ; Admin Dose 400 MG; Start 01/02/17 at 09:00 Sertraline HCl (Zoloft) 100 mg DAILY PO Last administered on 01/06/17 10:00; Admin Dose 100 MG; Start 01/02/17 at 09:00 Tamsulosin HCl (Flomax) 0.4 mg HS PO Last administered on 01/05/17 21:16; Admin Dose 0.4 MG; Start 01/02/17 at 21:00 Zolpidem Tartrate (Ambien) 10 mg HS PRN PO SLEEP; Start 01/02/17 at 02:30 Pantoprazole (Protonix Tab) 40 mg DAILY@06 PO Last administered on 01/06/17 05: 54; Admin Dose 40 MG; Start 01/03/17 at 06:00 Isosorbide Dinitrate (Isordil) 10 mg TID PO Last administered on 01/06/17 10:01 ; Admin Dose 10 MG; Start 01/02/17 at 21:00 Prednisolone (Prednisolone) 5 mg DAILY PO Last administered on 01/06/17 10:00; Admin Dose 5 MG; Start 01/04/17 at 09:00 Cyclosporine (Sandimmune) 100 mg BID PO Last administered on 01/06/17 10:00; Admin Dose 100 MG; Start 01/03/17 at 21:00 Lorazepam (Ativan) 0.5 mg Q6H PRN PO ANXIETY; Start 01/04/17 at 17:30 Atorvastatin Calcium (Lipitor) 20 mg HS PO Last administered on 01/05/17 21:16 ; Admin Dose 20 MG; Start 01/05/17 at 21:00 DEE ENCARNACION MD Jan 06, 2017 12:20
--- NOTE | 2017-01-06 17:49 | PN ---
Date/Time of Note Date/Time of Note DATE: 01/06/17 TIME: 17:43 Assessment/Plan VTE Prophylaxis VTE Prophylaxis Intervention: other Lines/Catheters [facility] Saline Lock Urinary Cath still in place: No Assessment/Plan Assessment/Plan - Chest pain, assess for acute coronary syndrome SP negative stress in June 2016 for ischemia.c/o chest pain at times- none at present. - per cardiology - negative troponin x 3. - Neg VQ scan today - History of cardiomyopathy, decreased left ventricular ejection fraction, last being approximately 44% by stress- now EF 5)s, no ischemia - Status post renal transplant. Immunosuppressive regiment per Dr Shields. - History of gastritis. Continue Protonix. - History of dyslipidemia-LDL 127 HDL 33 - Anxiety, depression. Continue sertraline. Further recommendations depend upon patient clinical course Plan of dominga Wills/staff Subjective 24 Hr Interval Summary Respiratory: no complaints Cardiovascular: chest pain Gastrointestinal: no complaints Genitourinary: no complaints Musculoskeletal: no complaints Exam/Review of Systems Vital Signs Vitals Vital Signs Date Time Temp Pulse Resp B/P Pulse Ox O2 Delivery O2 Flow Rate FiO2 01/06/17 16:17 98.1 73 17 103/70 94 01/04/17 00:00 Room Air Intake and Output 01/05/17 01/05/17 01/06/17 15:00 23:00 07:00 Intake Total 1500 ml 2900 ml Output Total 1400 ml 2000 ml Balance 100 ml 900 ml Exam Constitutional: alert, oriented, well developed Respiratory: clear to auscultation, normal air movement Cardiovascular: nl pulses, regular rate and rhythm Gastrointestinal: soft Musculoskeletal: nl extremities to inspection Neurological: nl mental status, nl speech Lymph: nontender Results Result Diagram: 01/06/17 0722 01/06/17 0600 Results 24 hrs Laboratory Tests Test 01/06/17 06:00 01/06/17 07:22 Sodium Level 140 Potassium Level 4.0 Chloride Level 105 Carbon Dioxide Level 25 Anion Gap 14 Blood Urea Nitrogen 19 Creatinine 1.04 Glucose Level 84 Calcium Level 9.3 Total Bilirubin 0.3 Direct Bilirubin 0.00 Indirect Bilirubin 0.3 Aspartate Amino Transf (AST/SGOT) 21 Alanine Aminotransferase (ALT/SGPT) 33 Alkaline Phosphatase 87 Total Protein 7.1 Albumin 4.4 Globulin 2.70 Albumin/Globulin Ratio 1.62 White Blood Count 9.0 Red Blood Count 4.84 Hemoglobin 13.6 L Hematocrit 41.8 L Mean Corpuscular Volume 86.4 Mean Corpuscular Hemoglobin 28.1 L Mean Corpuscular Hemoglobin Concent 32.5 Red Cell Distribution Width 13.8 Platelet Count 251 Mean Platelet Volume 10.4 Neutrophils % 62.2 Lymphocytes % 26.0 Monocytes % 8.3 Eosinophils % 2.3 Basophils % 0.3 Nucleated Red Blood Cells % 0.0 Neutrophils # 5.6 Lymphocytes # 2.3 Monocytes # 0.7 Eosinophils # 0.2 Basophils # 0.0 Nucleated Red Blood Cells # 0.0 Medications Medications Current Medications Sodium Chloride (NS) 1,000 ml @ 50 mls/hr Q20H IV Last administered on 01:23; Admin Dose 50 MLS/HR; Start 01/02/17 at 02:27 Ondansetron HCl (Zofran Inj) 4 mg Q6H PRN IV NAUSEA AND/OR VOMITING; Start at 02:30 Morphine Sulfate (morphine) 2 mg Q4H PRN IV PAIN LEVEL 7-10 Last administered on 01/06/17 14:08; Admin Dose 2 MG; Start 01/02/17 at 02:30 Folic Acid (Folic Acid) 1 mg DAILY PO Last administered on 01/06/17 10:00; Admin Dose 1 MG; Start 01/02/17 at 09:00 Gabapentin (Neurontin) 300 mg TID PO Last administered on 01/06/17 14:09; Admin Dose 300 MG; Start 01/02/17 at 09:00 Magnesium Oxide (Mag-Ox 400) 400 mg BID PO Last administered on 01/06/17 10:00 ; Admin Dose 400 MG; Start 01/02/17 at 09:00 Sertraline HCl (Zoloft) 100 mg DAILY PO Last administered on 01/06/17 10:00; Admin Dose 100 MG; Start 01/02/17 at 09:00 Tamsulosin HCl (Flomax) 0.4 mg HS PO Last administered on 01/05/17 21:16; Admin Dose 0.4 MG; Start 01/02/17 at 21:00 Zolpidem Tartrate (Ambien) 10 mg HS PRN PO SLEEP; Start 01/02/17 at 02:30 Pantoprazole (Protonix Tab) 40 mg DAILY@06 PO Last administered on 01/06/17 05: 54; Admin Dose 40 MG; Start 01/03/17 at 06:00 Isosorbide Dinitrate (Isordil) 10 mg TID PO Last administered on 01/06/17 14:09 ; Admin Dose 10 MG; Start 01/02/17 at 21:00 Prednisolone (Prednisolone) 5 mg DAILY PO Last administered on 01/06/17 10:00; Admin Dose 5 MG; Start 01/04/17 at 09:00 Cyclosporine (Sandimmune) 100 mg BID PO Last administered on 01/06/17 10:00; Admin Dose 100 MG; Start 01/03/17 at 21:00 Lorazepam (Ativan) 0.5 mg Q6H PRN PO ANXIETY; Start 01/04/17 at 17:30 Atorvastatin Calcium (Lipitor) 20 mg HS PO Last administered on 01/05/17 21:16 ; Admin Dose 20 MG; Start 01/05/17 at 21:00 RASHID PALACIOS Jan 06, 2017 17:49
[2017-01-06] MEDS: TAMSULOSIN (SR) 0.4 MG CAP PO SCH (20:34)
[2017-01-06] MEDS: ATORVASTATIN 20 MG TAB PO SCH (20:34)
[2017-01-07] VITALS (12 sets, daily range): BP systolic 115–126; BP diastolic 78–94; PULSE 56–112; RESP 17–20
[2017-01-07] MEDS: morphine 2 MG INJ IV PRN ×6 (01:54→22:52)
[2017-01-07] MEDS: PANTOPRAZOLE (EC) 40 MG TAB PO SCH (06:05)
[2017-01-07 08:01] LABS: ADD SCAN DIFF NO
[2017-01-07 08:11] LABS: BASOPHILS % 0.1 % (0.0-2.0); EOSINOPHILS # 0.2 10^3/ul (0.0-0.5); EOSINOPHILS % 2.5 % (0.0-7.0); HEMATOCRIT 41.3 % (42.0-52.0); HEMOGLOBIN 13.5 g/dl (14.0-18.0); LYMPHOCYTES # 2.3 10^3/ul (0.8-2.9); LYMPHOCYTES % 26.5 % (15.0-51.0); MEAN CORPUSCULAR HEMOGLOBIN 28.4 pg (29.0-33.0); MEAN CORPUSCULAR HGB CONC 32.7 g/dl (32.0-37.0); MEAN CORPUSCULAR VOLUME 86.9 fl (82.0-101.0); MEAN PLATELET VOLUME 10.8 fl (7.4-10.4); MONOCYTE # 0.7 10^3/ul (0.3-0.9); MONOCYTES % 8.6 % (0.0-11.0); NEUTROPHIL # 5.3 10^3/ul (1.6-7.5); NEUTROPHILS % 61.2 % (39.0-77.0); PLATELET COUNT 254 10^3/UL (140-415); RED BLOOD COUNT 4.75 10^6/ul (4.70-6.10); RED CELL DISTRIBUTION WIDTH 13.7 % (11.5-14.5); WHITE BLOOD COUNT 8.6 10^3/ul (4.8-10.8)
[2017-01-07] MEDS: GABAPENTIN 300 MG CAP PO SCH ×3 (08:45→21:10)
[2017-01-07] MEDS: ISOSORBIDE DINITRATE 10 MG TAB PO SCH ×3 (08:45→21:10)
[2017-01-07] MEDS: SERTRALINE 100 MG TAB PO SCH (08:45)
[2017-01-07] MEDS: CYCLOSPORINE 25 MG CAP PO SCH ×2 (08:46→21:19)
[2017-01-07] MEDS: predniSOLONE 5 MG TAB PO SCH (08:46)
[2017-01-07] MEDS: MAGNESIUM OXIDE 400 MG TAB PO SCH ×2 (08:46→21:09)
[2017-01-07] MEDS: FOLIC ACID 1 MG TAB PO SCH (08:46)
[2017-01-07 08:54] LABS: ALBUMIN 4.4 g/dl (3.3-4.9); ALBUMIN/GLOBULIN RATIO 1.76; BILIRUBIN,INDIRECT 0.5 mg/dl (0-1.1); BILIRUBIN,TOTAL 0.5 mg/dl (0.2-1.3); CALCIUM 9.8 mg/dl (8.4-10.2); CREATININE 0.96 mg/dl (0.61-1.24); POTASSIUM 4.7 mmol/L (3.5-5.1); TOTAL PROTEIN 6.9 g/dl (6.1-8.1)
--- NOTE | 2017-01-07 09:16 | CARRPT ---
DATE OF PROCEDURE: 01/04/2017 LEXISCAN CARDIOLITE STRESS TEST, ELECTROCARDIOGRAM PORTION: REASON FOR STRESS TESTING: Chest pain, assess for ischemia. BASELINE VITAL SIGNS AND ELECTROCARDIOGRAM: Pulse of 66, blood pressure 128/93. Electrocardiogram revealed baseline normal sinus rhythm, rate of 66, normal axis, normal intervals with biphasic T-wav e abnormalities and isolated to lead aVL. PROCEDURE: The patient underwent standard Lexiscan infusion protocol over 10 seconds followed by ra diolabeled tracer. The patient's test was stopped due to completion of protocol. Maximal achieved blood pressure during the test 129/79. Maximal heart rate during the test 126. ELECTROCARDIOGRAM FINDINGS: The patient did not develop any Lexiscan-induced ST or T-wave changes f rom baseline abnormalities. No documented PVCs. SYMPTOMS: The patient had complaints of shortness of breath during stress testing. No chest pain. IMPRESSION: 1. No Lexiscan-induced ST or T-wave changes from baseline abnormalities or diagnostic cardiac ische marv. 2. Complaints of shortness of breath during stress testing, no chest pain, resolved in recovery. 3. No documented premature ventricular contractions during stress testing. 4. Report of nuclear images to follow in separate dictation. Dictated By: DASHA BREWER/BIBIANA Conf#: [id number] DID#: [id number] CC: MARY PAYAN MD;*EndCC*
--- NOTE | 2017-01-07 11:35 | CONS ---
Date/Time of Note Date/Time of Note DATE: 01/07/17 TIME: 11:33 Assessment/Plan Assessment/Plan Chief Complaint/Hosp Course 1. Living related donor Kidney Transplant in 2009 , renal function is normal and stable on current medication . Continue current medication . 2. Chest pain , cardiac w/u is in progress 3. HTN .controlled Problems: Consultation Date/Type/Reason Admit Date/Time Jan 03, 2017 at 16:27 Type of Consultation: Cardiology Referring Provider: NIKOLAY PAGAN MD 24 HR Interval Summary Free Text/Dictation He still has chest pain , Lexiscan images are pending . Exam/Review of Systems Vital Signs Vitals Vital Signs Date Time Temp Pulse Resp B/P Pulse Ox O2 Delivery O2 Flow Rate FiO2 01/07/17 08:51 56 01/07/17 07:32 98.1 18 120/81 95 01/04/17 00:00 Room Air Intake and Output 01/06/17 01/06/17 01/07/17 15:00 23:00 07:00 Intake Total 1900 ml 1500 ml Output Total 2000 ml Balance -100 ml 1500 ml Exam Constitutional: alert, oriented, well developed Respiratory: clear to auscultation, normal air movement Cardiovascular: regular rate and rhythm Gastrointestinal: soft Musculoskeletal: nl extremities to inspection Results Result Diagram: 01/07/17 0652 01/07/17 0652 Results 24 hrs Laboratory Tests Test 01/07/17 06:52 White Blood Count 8.6 Red Blood Count 4.75 Hemoglobin 13.5 L Hematocrit 41.3 L Mean Corpuscular Volume 86.9 Mean Corpuscular Hemoglobin 28.4 L Mean Corpuscular Hemoglobin Concent 32.7 Red Cell Distribution Width 13.7 Platelet Count 254 Mean Platelet Volume 10.8 H Neutrophils % 61.2 Lymphocytes % 26.5 Monocytes % 8.6 Eosinophils % 2.5 Basophils % 0.1 Nucleated Red Blood Cells % 0.0 Neutrophils # 5.3 Lymphocytes # 2.3 Monocytes # 0.7 Eosinophils # 0.2 Basophils # 0.0 Nucleated Red Blood Cells # 0.0 Sodium Level 141 Potassium Level 4.7 Chloride Level 103 Carbon Dioxide Level 29 Anion Gap 14 Blood Urea Nitrogen 15 Creatinine 0.96 Glucose Level 71 Calcium Level 9.8 Total Bilirubin 0.5 Direct Bilirubin 0.00 Indirect Bilirubin 0.5 Aspartate Amino Transf (AST/SGOT) 19 Alanine Aminotransferase (ALT/SGPT) 30 Alkaline Phosphatase 84 Total Protein 6.9 Albumin 4.4 Globulin 2.50 Albumin/Globulin Ratio 1.76 Medications Medications Current Medications Sodium Chloride (NS) 1,000 ml @ 40 mls/hr Q24H IV Last administered on 17:49; Admin Dose 50 MLS/HR; Start 01/02/17 at 02:27 Ondansetron HCl (Zofran Inj) 4 mg Q6H PRN IV NAUSEA AND/OR VOMITING; Start at 02:30 Morphine Sulfate (morphine) 2 mg Q4H PRN IV PAIN LEVEL 7-10 Last administered on 01/07/17 10:20; Admin Dose 2 MG; Start 01/02/17 at 02:30 Folic Acid (Folic Acid) 1 mg DAILY PO Last administered on 01/07/17 08:46; Admin Dose 1 MG; Start 01/02/17 at 09:00 Gabapentin (Neurontin) 300 mg TID PO Last administered on 01/07/17 08:45; Admin Dose 300 MG; Start 01/02/17 at 09:00 Magnesium Oxide (Mag-Ox 400) 400 mg BID PO Last administered on 01/07/17 08:46 ; Admin Dose 400 MG; Start 01/02/17 at 09:00 Sertraline HCl (Zoloft) 100 mg DAILY PO Last administered on 01/07/17 08:45; Admin Dose 100 MG; Start 01/02/17 at 09:00 Tamsulosin HCl (Flomax) 0.4 mg HS PO Last administered on 01/06/17 20:34; Admin Dose 0.4 MG; Start 01/02/17 at 21:00 Zolpidem Tartrate (Ambien) 10 mg HS PRN PO SLEEP; Start 01/02/17 at 02:30 Pantoprazole (Protonix Tab) 40 mg DAILY@06 PO Last administered on 01/07/17 06: 05; Admin Dose 40 MG; Start 01/03/17 at 06:00 Isosorbide Dinitrate (Isordil) 10 mg TID PO Last administered on 01/07/17 08:45 ; Admin Dose 10 MG; Start 01/02/17 at 21:00 Prednisolone (Prednisolone) 5 mg DAILY PO Last administered on 01/07/17 08:46; Admin Dose 5 MG; Start 01/04/17 at 09:00 Cyclosporine (Sandimmune) 100 mg BID PO Last administered on 01/07/17 08:46; Admin Dose 100 MG; Start 01/03/17 at 21:00 Lorazepam (Ativan) 0.5 mg Q6H PRN PO ANXIETY; Start 01/04/17 at 17:30 Atorvastatin Calcium (Lipitor) 20 mg HS PO Last administered on 01/06/17 20:34 ; Admin Dose 20 MG; Start 01/05/17 at 21:00 DEVORAH MCFADDEN MD Jan 07, 2017 11:35
--- NOTE | 2017-01-07 14:23 | PN ---
Date/Time of Note Date/Time of Note DATE: 01/07/17 TIME: 14:20 Assessment/Plan VTE Prophylaxis VTE Prophylaxis Intervention: SCD's Lines/Catheters IV [facility]ter Type [facility]from [facility]): Peripheral IV Urinary Cath still in place: No Assessment/Plan Chief Complaint/Hosp Course Patient does complain of chest pain today in a.m., currently stable, sinus bradycardia sinus rhythm on telemetry. ASSESSMENT AND PLAN: 1. Chest pain. S/p stress test. Dr. Salmon is following in cardiology consultation. 2. Status post renal transplant. Continue to monitor renal function, immunosuppressive regiment per Dr Shields. 3. History of gastritis. Continue Protonix. 4. Dyslipidemia. Continue Lipitor. 5. Anxiety, depression. Continue sertraline. Further recommendations based on clinical course. Plan of care discussed with Dr. Wills. Problems: Exam/Review of Systems Vital Signs Vitals Vital Signs Date Time Temp Pulse Resp B/P Pulse Ox O2 Delivery O2 Flow Rate FiO2 01/07/17 12:45 67 01/07/17 11:46 98.2 17 123/89 95 01/04/17 00:00 Room Air Intake and Output 01/06/17 01/06/17 01/07/17 15:00 23:00 07:00 Intake Total 1900 ml 1500 ml Output Total 2000 ml Balance -100 ml 1500 ml Exam Constitutional: alert, oriented Head: normocephalic Neck: supple Respiratory: clear to auscultation Cardiovascular: nl pulses Gastrointestinal: non-tender, soft Musculoskeletal: nl extremities to inspection Extremities: normal pulses Results Result Diagram: 01/07/17 0652 01/07/17 0652 Results 24 hrs Laboratory Tests Test 01/07/17 06:52 White Blood Count 8.6 Red Blood Count 4.75 Hemoglobin 13.5 L Hematocrit 41.3 L Mean Corpuscular Volume 86.9 Mean Corpuscular Hemoglobin 28.4 L Mean Corpuscular Hemoglobin Concent 32.7 Red Cell Distribution Width 13.7 Platelet Count 254 Mean Platelet Volume 10.8 H Neutrophils % 61.2 Lymphocytes % 26.5 Monocytes % 8.6 Eosinophils % 2.5 Basophils % 0.1 Nucleated Red Blood Cells % 0.0 Neutrophils # 5.3 Lymphocytes # 2.3 Monocytes # 0.7 Eosinophils # 0.2 Basophils # 0.0 Nucleated Red Blood Cells # 0.0 Sodium Level 141 Potassium Level 4.7 Chloride Level 103 Carbon Dioxide Level 29 Anion Gap 14 Blood Urea Nitrogen 15 Creatinine 0.96 Glucose Level 71 Calcium Level 9.8 Total Bilirubin 0.5 Direct Bilirubin 0.00 Indirect Bilirubin 0.5 Aspartate Amino Transf (AST/SGOT) 19 Alanine Aminotransferase (ALT/SGPT) 30 Alkaline Phosphatase 84 Total Protein 6.9 Albumin 4.4 Globulin 2.50 Albumin/Globulin Ratio 1.76 Medications Medications Current Medications Sodium Chloride (NS) 1,000 ml @ 40 mls/hr Q24H IV Last administered on 17:49; Admin Dose 50 MLS/HR; Start 01/02/17 at 02:27 Ondansetron HCl (Zofran Inj) 4 mg Q6H PRN IV NAUSEA AND/OR VOMITING; Start at 02:30 Morphine Sulfate (morphine) 2 mg Q4H PRN IV PAIN LEVEL 7-10 Last administered on 01/07/17 10:20; Admin Dose 2 MG; Start 01/02/17 at 02:30 Folic Acid (Folic Acid) 1 mg DAILY PO Last administered on 01/07/17 08:46; Admin Dose 1 MG; Start 01/02/17 at 09:00 Gabapentin (Neurontin) 300 mg TID PO Last administered on 01/07/17 12:42; Admin Dose 300 MG; Start 01/02/17 at 09:00 Magnesium Oxide (Mag-Ox 400) 400 mg BID PO Last administered on 01/07/17 08:46 ; Admin Dose 400 MG; Start 01/02/17 at 09:00 Sertraline HCl (Zoloft) 100 mg DAILY PO Last administered on 01/07/17 08:45; Admin Dose 100 MG; Start 01/02/17 at 09:00 Tamsulosin HCl (Flomax) 0.4 mg HS PO Last administered on 01/06/17 20:34; Admin Dose 0.4 MG; Start 01/02/17 at 21:00 Zolpidem Tartrate (Ambien) 10 mg HS PRN PO SLEEP; Start 01/02/17 at 02:30 Pantoprazole (Protonix Tab) 40 mg DAILY@06 PO Last administered on 01/07/17 06: 05; Admin Dose 40 MG; Start 01/03/17 at 06:00 Isosorbide Dinitrate (Isordil) 10 mg TID PO Last administered on 01/07/17 12:43 ; Admin Dose 10 MG; Start 01/02/17 at 21:00 Prednisolone (Prednisolone) 5 mg DAILY PO Last administered on 01/07/17 08:46; Admin Dose 5 MG; Start 01/04/17 at 09:00 Cyclosporine (Sandimmune) 100 mg BID PO Last administered on 01/07/17 08:46; Admin Dose 100 MG; Start 01/03/17 at 21:00 Lorazepam (Ativan) 0.5 mg Q6H PRN PO ANXIETY; Start 01/04/17 at 17:30 Atorvastatin Calcium (Lipitor) 20 mg HS PO Last administered on 01/06/17 20:34 ; Admin Dose 20 MG; Start 01/05/17 at 21:00 NADEEM GUO Jan 07, 2017 14:22
--- NOTE | 2017-01-07 19:37 | CONS ---
Date/Time of Note Date/Time of Note DATE: 01/07/17 TIME: 19:34 Assessment/Plan Assessment/Plan Chief Complaint/Hosp Course IMPRESSION: 1. Chest pain, assess for acute coronary syndrome with patient having a negative stress in June 2016 for ischemia.-negative troponin x 3. Neg VQ scan today/lexiscan negative for ischemia LVEF 53% 2. History of cardiomyopathy, decreased left ventricular ejection fraction, last being approximately 44% by stress, 45-50 by echo this admit at b53% by stress. 3. Abnormal electrocardiogram with isolated T-wave flattening in lead III. 4. History of renal transplant. 5. History of dyslipidemia-LDL 127 HDL 33 6. Anxiety. Recc: -Tele -Contnue isordil with slight increase given c/o ongoing cp(? spasm) -Continue immunosuppresives -Continue statin -D/C planning Problems: Consultation Date/Type/Reason Admit Date/Time Jan 03, 2017 at 16:27 Initial Consult Date 01/02/2017 Type of Consultation: Cardiology Reason for Consultation chest pain Referring Provider: NIKOLAY PAGAN MD Exam/Review of Systems Vital Signs Vitals Vital Signs Date Time Temp Pulse Resp B/P Pulse Ox O2 Delivery O2 Flow Rate FiO2 01/07/17 16:32 112 01/07/17 15:55 98.2 19 125/94 97 01/04/17 00:00 Room Air Intake and Output 01/06/17 01/06/17 01/07/17 15:00 23:00 07:00 Intake Total 1900 ml 1500 ml Output Total 2000 ml Balance -100 ml 1500 ml Exam Review of Systems: CONSTITUTIONAL: No fevers, chills. PULMONARY: No sob CARDIOVASCULAR: No chest pain/palpitations GASTROINTESTINAL: No nausea/vomiting. GENITOURINARY: No hematuria/dysuria. MUSCULOSKELETAL: No myagias/arthalgias. PSYCHIATRIC: The patient denies depression. NEUROLOGIC: No weakness Constitutional: alert Psych: no complaints Head: normocephalic ENMT: mucosa pink and moist Neck: jvd (8 cm water), supple Respiratory: diminished breath sounds Cardiovascular: regular rate and rhythm Gastrointestinal: non-tender, soft Musculoskeletal: muscle tone (normal) Extremities: edema (none) Neurological: other (No focal deficits) Results Result Diagram: 01/07/17 0652 01/07/17 0652 Results 24 hrs Laboratory Tests Test 01/07/17 06:52 White Blood Count 8.6 Red Blood Count 4.75 Hemoglobin 13.5 L Hematocrit 41.3 L Mean Corpuscular Volume 86.9 Mean Corpuscular Hemoglobin 28.4 L Mean Corpuscular Hemoglobin Concent 32.7 Red Cell Distribution Width 13.7 Platelet Count 254 Mean Platelet Volume 10.8 H Neutrophils % 61.2 Lymphocytes % 26.5 Monocytes % 8.6 Eosinophils % 2.5 Basophils % 0.1 Nucleated Red Blood Cells % 0.0 Neutrophils # 5.3 Lymphocytes # 2.3 Monocytes # 0.7 Eosinophils # 0.2 Basophils # 0.0 Nucleated Red Blood Cells # 0.0 Sodium Level 141 Potassium Level 4.7 Chloride Level 103 Carbon Dioxide Level 29 Anion Gap 14 Blood Urea Nitrogen 15 Creatinine 0.96 Glucose Level 71 Calcium Level 9.8 Total Bilirubin 0.5 Direct Bilirubin 0.00 Indirect Bilirubin 0.5 Aspartate Amino Transf (AST/SGOT) 19 Alanine Aminotransferase (ALT/SGPT) 30 Alkaline Phosphatase 84 Total Protein 6.9 Albumin 4.4 Globulin 2.50 Albumin/Globulin Ratio 1.76 Medications Medications Current Medications Sodium Chloride (NS) 1,000 ml @ 40 mls/hr Q24H IV Last administered on 17:49; Admin Dose 50 MLS/HR; Start 01/02/17 at 02:27 Ondansetron HCl (Zofran Inj) 4 mg Q6H PRN IV NAUSEA AND/OR VOMITING; Start at 02:30 Morphine Sulfate (morphine) 2 mg Q4H PRN IV PAIN LEVEL 7-10 Last administered on 01/07/17 18:39; Admin Dose 2 MG; Start 01/02/17 at 02:30 Folic Acid (Folic Acid) 1 mg DAILY PO Last administered on 01/07/17 08:46; Admin Dose 1 MG; Start 01/02/17 at 09:00 Gabapentin (Neurontin) 300 mg TID PO Last administered on 01/07/17 12:42; Admin Dose 300 MG; Start 01/02/17 at 09:00 Magnesium Oxide (Mag-Ox 400) 400 mg BID PO Last administered on 01/07/17 08:46 ; Admin Dose 400 MG; Start 01/02/17 at 09:00 Sertraline HCl (Zoloft) 100 mg DAILY PO Last administered on 01/07/17 08:45; Admin Dose 100 MG; Start 01/02/17 at 09:00 Tamsulosin HCl (Flomax) 0.4 mg HS PO Last administered on 01/06/17 20:34; Admin Dose 0.4 MG; Start 01/02/17 at 21:00 Zolpidem Tartrate (Ambien) 10 mg HS PRN PO SLEEP; Start 01/02/17 at 02:30 Pantoprazole (Protonix Tab) 40 mg DAILY@06 PO Last administered on 01/07/17 06: 05; Admin Dose 40 MG; Start 01/03/17 at 06:00 Isosorbide Dinitrate (Isordil) 10 mg TID PO Last administered on 01/07/17 12:43 ; Admin Dose 10 MG; Start 01/02/17 at 21:00 Prednisolone (Prednisolone) 5 mg DAILY PO Last administered on 01/07/17 08:46; Admin Dose 5 MG; Start 01/04/17 at 09:00 Cyclosporine (Sandimmune) 100 mg BID PO Last administered on 01/07/17 08:46; Admin Dose 100 MG; Start 01/03/17 at 21:00 Lorazepam (Ativan) 0.5 mg Q6H PRN PO ANXIETY; Start 01/04/17 at 17:30 Atorvastatin Calcium (Lipitor) 20 mg HS PO Last administered on 01/06/17 20:34 ; Admin Dose 20 MG; Start 01/05/17 at 21:00 DASHA PRUITT Jan 07, 2017 19:37
[2017-01-07] MEDS: TAMSULOSIN (SR) 0.4 MG CAP PO SCH (21:10)
[2017-01-07] MEDS: ATORVASTATIN 20 MG TAB PO SCH (21:17)
[2017-01-07] MEDS: ZOLPIDEM 5 MG TAB PO PRN (22:51)
[2017-01-08] VITALS (12 sets, daily range): BP systolic 105–136; BP diastolic 68–89; PULSE 66–102; RESP 16–20
[2017-01-08] MEDS: morphine 2 MG INJ IV PRN ×6 (02:44→22:13)
[2017-01-08] MEDS: SOD CHLORIDE 0.9% 1,000 ML IV SCH (02:46)
[2017-01-08] MEDS: PANTOPRAZOLE (EC) 40 MG TAB PO SCH (05:44)
[2017-01-08 07:45] LABS: ADD SCAN DIFF NO
[2017-01-08 07:49] LABS: BASOPHILS % 0.5 % (0.0-2.0); EOSINOPHILS # 0.2 10^3/ul (0.0-0.5); EOSINOPHILS % 2.3 % (0.0-7.0); HEMATOCRIT 39.6 % (42.0-52.0); HEMOGLOBIN 13.3 g/dl (14.0-18.0); LYMPHOCYTES # 2.1 10^3/ul (0.8-2.9); LYMPHOCYTES % 26.6 % (15.0-51.0); MEAN CORPUSCULAR HEMOGLOBIN 28.4 pg (29.0-33.0); MEAN CORPUSCULAR HGB CONC 33.6 g/dl (32.0-37.0); MEAN CORPUSCULAR VOLUME 84.4 fl (82.0-101.0); MEAN PLATELET VOLUME 10.3 fl (7.4-10.4); MONOCYTE # 0.6 10^3/ul (0.3-0.9); NEUTROPHIL # 4.8 10^3/ul (1.6-7.5); NEUTROPHILS % 61.8 % (39.0-77.0); PLATELET COUNT 244 10^3/UL (140-415); RED BLOOD COUNT 4.69 10^6/ul (4.70-6.10); RED CELL DISTRIBUTION WIDTH 13.5 % (11.5-14.5); WHITE BLOOD COUNT 7.8 10^3/ul (4.8-10.8)
--- NOTE | 2017-01-08 08:11 | CONS ---
Date/Time of Note Date/Time of Note DATE: 01/08/17 TIME: 08:08 Assessment/Plan Assessment/Plan Additional Assessment/Plan 1. Chest pain persists, although sl less, cause unclear. Might consider bone scan to pursue occult fx but no hx trauma. 2. Well preserved renal fx following kidney transplant. Consultation Date/Type/Reason Admit Date/Time Jan 03, 2017 at 16:27 Initial Consult Date Type of Consultation: Cardiology Referring Provider: NIKOLAY PAGAN MD Detailed Summary Respiratory: No cough, No shortness of breath Cardiovascular: chest pain (left precordial that does not radiate and ? pleuritic and does not worsened by change in position) Gastrointestinal: no complaints Genitourinary: no complaints Exam/Review of Systems Vital Signs Vitals Vital Signs Date Time Temp Pulse Resp B/P Pulse Ox O2 Delivery O2 Flow Rate FiO2 01/08/17 07:33 98.3 80 20 136/88 97 Intake and Output 01/07/17 01/07/17 01/08/17 14:59 22:59 06:59 Intake Total 1480 ml 1380 ml Balance 1480 ml 1380 ml Exam Neck: No jvd Respiratory: clear to auscultation Cardiovascular: regular rate and rhythm Gastrointestinal: soft Extremities: No edema (and no calf tend) Results Result Diagram: 01/08/17 0645 01/07/17 0652 Results 24 hrs Laboratory Tests Test 01/08/17 06:45 White Blood Count 7.8 Red Blood Count 4.69 L Hemoglobin 13.3 L Hematocrit 39.6 L Mean Corpuscular Volume 84.4 Mean Corpuscular Hemoglobin 28.4 L Mean Corpuscular Hemoglobin Concent 33.6 Red Cell Distribution Width 13.5 Platelet Count 244 Mean Platelet Volume 10.3 Neutrophils % 61.8 Lymphocytes % 26.6 Monocytes % 8.0 Eosinophils % 2.3 Basophils % 0.5 Nucleated Red Blood Cells % 0.0 Neutrophils # 4.8 Lymphocytes # 2.1 Monocytes # 0.6 Eosinophils # 0.2 Basophils # 0.0 Nucleated Red Blood Cells # 0.0 Medications Medications Current Medications Sodium Chloride (NS) 1,000 ml @ 40 mls/hr Q24H IV Last administered on t 02:46; Admin Dose 40 MLS/HR; Start 01/02/17 at 02:27 Ondansetron HCl (Zofran Inj) 4 mg Q6H PRN IV NAUSEA AND/OR VOMITING; Start at 02:30 Morphine Sulfate (morphine) 2 mg Q4H PRN IV PAIN LEVEL 7-10 Last administered on 01/08/17 05:47; Admin Dose 2 MG; Start 01/02/17 at 02:30 Folic Acid (Folic Acid) 1 mg DAILY PO Last administered on 01/07/17 08:46; Admin Dose 1 MG; Start 01/02/17 at 09:00 Gabapentin (Neurontin) 300 mg TID PO Last administered on 01/07/17 21:10; Admin Dose 300 MG; Start 01/02/17 at 09:00 Magnesium Oxide (Mag-Ox 400) 400 mg BID PO Last administered on 01/07/17 21:09 ; Admin Dose 400 MG; Start 01/02/17 at 09:00 Sertraline HCl (Zoloft) 100 mg DAILY PO Last administered on 01/07/17 08:45; Admin Dose 100 MG; Start 01/02/17 at 09:00 Tamsulosin HCl (Flomax) 0.4 mg HS PO Last administered on 01/07/17 21:10; Admin Dose 0.4 MG; Start 01/02/17 at 21:00 Zolpidem Tartrate (Ambien) 10 mg HS PRN PO SLEEP Last administered on 01/07/17 22:51; Admin Dose 10 MG; Start 01/02/17 at 02:30 Pantoprazole (Protonix Tab) 40 mg DAILY@06 PO Last administered on 01/08/17 05: 44; Admin Dose 40 MG; Start 01/03/17 at 06:00 Prednisolone (Prednisolone) 5 mg DAILY PO Last administered on 01/07/17 08:46; Admin Dose 5 MG; Start 01/04/17 at 09:00 Cyclosporine (Sandimmune) 100 mg BID PO Last administered on 01/07/17 21:19; Admin Dose 100 MG; Start 01/03/17 at 21:00 Lorazepam (Ativan) 0.5 mg Q6H PRN PO ANXIETY; Start 01/04/17 at 17:30 Atorvastatin Calcium (Lipitor) 20 mg HS PO Last administered on 01/07/17 21:17 ; Admin Dose 20 MG; Start 01/05/17 at 21:00 Isosorbide Dinitrate (Isordil) 20 mg TID PO Last administered on 01/07/17t 21:10 ; Admin Dose 20 MG; Start 01/07/17 at 21:00 DEE MARSH MD Jan 08, 2017 08:11
[2017-01-08 08:19] LABS: CALCIUM 9.4 mg/dl (8.4-10.2); CREATININE 0.96 mg/dl (0.61-1.24); POTASSIUM 3.8 mmol/L (3.5-5.1)
[2017-01-08] MEDS: SERTRALINE 100 MG TAB PO SCH (09:08)
[2017-01-08] MEDS: MAGNESIUM OXIDE 400 MG TAB PO SCH ×2 (09:08→21:08)
[2017-01-08] MEDS: CYCLOSPORINE 25 MG CAP PO SCH ×2 (09:08→21:09)
[2017-01-08] MEDS: predniSOLONE 5 MG TAB PO SCH (09:09)
[2017-01-08] MEDS: FOLIC ACID 1 MG TAB PO SCH (09:09)
[2017-01-08] MEDS: GABAPENTIN 300 MG CAP PO SCH ×3 (09:09→21:08)
[2017-01-08] MEDS: ISOSORBIDE DINITRATE 10 MG TAB PO SCH ×3 (09:09→21:09)
--- NOTE | 2017-01-08 09:19 | CONS ---
Date/Time of Note Date/Time of Note DATE: 01/08/17 TIME: 09:18 Assessment/Plan Assessment/Plan Additional Assessment/Plan 1. Chest pain, assess for acute coronary syndrome with patient having a negative stress in June 2016 for ischemia.-negative troponin x 3. Neg VQ scan today - doubt ischemia - no cardiac intervention planned 2. History of cardiomyopathy, decreased left ventricular ejection fraction, last being approximately 44% by stress- now EF 5Os, no ischemia 3. Abnormal electrocardiogram with isolated T-wave flattening in lead III. 4. History of renal transplant - renal team to follow - avoid nephrotoxic meds - good fxn 5. History of dyslipidemia-LDL 127 HDL 33 6. Anxiety- Rx as need - better now Consultation Date/Type/Reason Admit Date/Time Jan 03, 2017 at 16:27 Type of Consultation: Cardiology Referring Provider: NIKOLAY PAGAN MD 24 HR Interval Summary Free Text/Dictation NO acute events - BP controlled - no tachy-wallace arrhythmia noted ROS: No fever, no chills, no nausea, no vomiting, no diarrhea/constipation No recent weight changes No chest pain, no PND, no orthopnea No dizziness, blurred vision No thirst, no heat or cold intolerance Exam/Review of Systems Vital Signs Vitals Vital Signs Date Time Temp Pulse Resp B/P Pulse Ox O2 Delivery O2 Flow Rate FiO2 01/08/17 08:58 66 01/08/17 07:33 98.3 20 136/88 97 Intake and Output 01/07/17 01/07/17 01/08/17 15:00 23:00 07:00 Intake Total 1480 ml 1380 ml Balance 1480 ml 1380 ml Exam General: WN/WD/NAD, AOx 3 HEENT: Unicetric/atraumatic/EOMI (follow commands) NECK: JVD elevated, no thyromegaly Lymph: no lymphadenopathy HEART: regular with no S3, II/ systolic murmur at apex LUNGS: Coarse sounds ABD: soft, NT, ND, +BS : Intact Neuro: non focal SKIN: chronic changes EXT: trace edema Results Result Diagram: 01/08/17 0645 01/08/17 0648 Results 24 hrs Laboratory Tests Test 01/08/17 06:45 01/08/17 06:48 White Blood Count 7.8 Red Blood Count 4.69 L Hemoglobin 13.3 L Hematocrit 39.6 L Mean Corpuscular Volume 84.4 Mean Corpuscular Hemoglobin 28.4 L Mean Corpuscular Hemoglobin Concent 33.6 Red Cell Distribution Width 13.5 Platelet Count 244 Mean Platelet Volume 10.3 Neutrophils % 61.8 Lymphocytes % 26.6 Monocytes % 8.0 Eosinophils % 2.3 Basophils % 0.5 Nucleated Red Blood Cells % 0.0 Neutrophils # 4.8 Lymphocytes # 2.1 Monocytes # 0.6 Eosinophils # 0.2 Basophils # 0.0 Nucleated Red Blood Cells # 0.0 Sodium Level 138 Potassium Level 3.8 Chloride Level 103 Carbon Dioxide Level 27 Anion Gap 12 Blood Urea Nitrogen 13 Creatinine 0.96 Glucose Level 83 Calcium Level 9.4 Medications Medications Current Medications Sodium Chloride (NS) 1,000 ml @ 40 mls/hr Q24H IV Last administered on 02:46; Admin Dose 40 MLS/HR; Start 01/02/17 at 02:27 Ondansetron HCl (Zofran Inj) 4 mg Q6H PRN IV NAUSEA AND/OR VOMITING; Start at 02:30 Morphine Sulfate (morphine) 2 mg Q4H PRN IV PAIN LEVEL 7-10 Last administered on 01/08/17 05:47; Admin Dose 2 MG; Start 01/02/17 at 02:30 Folic Acid (Folic Acid) 1 mg DAILY PO Last administered on 01/08/17 09:09; Admin Dose 1 MG; Start 01/02/17 at 09:00 Gabapentin (Neurontin) 300 mg TID PO Last administered on 01/08/17 09:09; Admin Dose 300 MG; Start 01/02/17 at 09:00 Magnesium Oxide (Mag-Ox 400) 400 mg BID PO Last administered on 01/08/17 09:08 ; Admin Dose 400 MG; Start 01/02/17 at 09:00 Sertraline HCl (Zoloft) 100 mg DAILY PO Last administered on 01/08/17 09:08; Admin Dose 100 MG; Start 01/02/17 at 09:00 Tamsulosin HCl (Flomax) 0.4 mg HS PO Last administered on 01/07/17 21:10; Admin Dose 0.4 MG; Start 01/02/17 at 21:00 Zolpidem Tartrate (Ambien) 10 mg HS PRN PO SLEEP Last administered on 01/07/17 22:51; Admin Dose 10 MG; Start 01/02/17 at 02:30 Pantoprazole (Protonix Tab) 40 mg DAILY@06 PO Last administered on 01/08/17 05: 44; Admin Dose 40 MG; Start 01/03/17 at 06:00 Prednisolone (Prednisolone) 5 mg DAILY PO Last administered on 01/08/17 09:09; Admin Dose 5 MG; Start 01/04/17 at 09:00 Cyclosporine (Sandimmune) 100 mg BID PO Last administered on 01/08/17 09:08; Admin Dose 100 MG; Start 01/03/17 at 21:00 Lorazepam (Ativan) 0.5 mg Q6H PRN PO ANXIETY; Start 01/04/17 at 17:30 Atorvastatin Calcium (Lipitor) 20 mg HS PO Last administered on 01/07/17 21:17 ; Admin Dose 20 MG; Start 01/05/17 at 21:00 Isosorbide Dinitrate (Isordil) 20 mg TID PO Last administered on 01/08/17 09:09 ; Admin Dose 20 MG; Start 01/07/17 at 21:00 DEE ENCARNACION MD Jan 08, 2017 09:19
[2017-01-08] MEDS ORDERED: ATOR20TA65 PO (13:54)
[2017-01-08] MEDS ORDERED: HYDR-906 PO (13:54)
[2017-01-08] MEDS ORDERED: SAN25 PO (13:54)
[2017-01-08] MEDS ORDERED: PRED5TAB50 PO (13:54)
--- NOTE | 2017-01-08 14:08 | PN ---
Date/Time of Note Date/Time of Note DATE: 01/08/17 TIME: 14:07 Assessment/Plan VTE Prophylaxis VTE Prophylaxis Intervention: SCD's Lines/Catheters IV Catheter Type (from [facility]): Peripheral IV Urinary Cath still in place: No Assessment/Plan Chief Complaint/Hosp Course Continues to complain of intermittent chest pain, will order bone scan ASSESSMENT AND PLAN: 1. Chest pain. S/p stress test. Dr. Salmon is following in cardiology consultation. 2. Status post renal transplant. Continue to monitor renal function, immunosuppressive regiment per Dr Shields. 3. History of gastritis. Continue Protonix. 4. Dyslipidemia. Continue Lipitor. 5. Anxiety, depression. Continue sertraline. Further recommendations based on clinical course. Plan of care discussed with Dr. Wills. Problems: Exam/Review of Systems Vital Signs Vitals Vital Signs Date Time Temp Pulse Resp B/P Pulse Ox O2 Delivery O2 Flow Rate FiO2 01/08/17 12:40 75 01/08/17 11:39 98.0 19 105/68 95 Intake and Output 01/07/17 01/07/17 01/08/17 15:00 23:00 07:00 Intake Total 1480 ml 1380 ml Balance 1480 ml 1380 ml Exam Constitutional: alert, oriented Head: normocephalic Neck: supple Respiratory: clear to auscultation Cardiovascular: nl pulses Gastrointestinal: non-tender, soft Musculoskeletal: nl extremities to inspection Extremities: normal pulses Results Result Diagram: 01/08/17 0645 01/08/17 0648 Results 24 hrs Laboratory Tests Test 01/08/17 06:45 01/08/17 06:48 White Blood Count 7.8 Red Blood Count 4.69 L Hemoglobin 13.3 L Hematocrit 39.6 L Mean Corpuscular Volume 84.4 Mean Corpuscular Hemoglobin 28.4 L Mean Corpuscular Hemoglobin Concent 33.6 Red Cell Distribution Width 13.5 Platelet Count 244 Mean Platelet Volume 10.3 Neutrophils % 61.8 Lymphocytes % 26.6 Monocytes % 8.0 Eosinophils % 2.3 Basophils % 0.5 Nucleated Red Blood Cells % 0.0 Neutrophils # 4.8 Lymphocytes # 2.1 Monocytes # 0.6 Eosinophils # 0.2 Basophils # 0.0 Nucleated Red Blood Cells # 0.0 Sodium Level 138 Potassium Level 3.8 Chloride Level 103 Carbon Dioxide Level 27 Anion Gap 12 Blood Urea Nitrogen 13 Creatinine 0.96 Glucose Level 83 Calcium Level 9.4 Medications Medications Current Medications Sodium Chloride (NS) 1,000 ml @ 40 mls/hr Q24H IV Last administered on 02:46; Admin Dose 40 MLS/HR; Start 01/02/17 at 02:27 Ondansetron HCl (Zofran Inj) 4 mg Q6H PRN IV NAUSEA AND/OR VOMITING; Start at 02:30 Morphine Sulfate (morphine) 2 mg Q4H PRN IV PAIN LEVEL 7-10 Last administered on 01/08/17 13:55; Admin Dose 2 MG; Start 01/02/17 at 02:30 Folic Acid (Folic Acid) 1 mg DAILY PO Last administered on 01/08/17 09:09; Admin Dose 1 MG; Start 01/02/17 at 09:00 Gabapentin (Neurontin) 300 mg TID PO Last administered on 01/08/17 12:58; Admin Dose 300 MG; Start 01/02/17 at 09:00 Magnesium Oxide (Mag-Ox 400) 400 mg BID PO Last administered on 01/08/17 09:08 ; Admin Dose 400 MG; Start 01/02/17 at 09:00 Sertraline HCl (Zoloft) 100 mg DAILY PO Last administered on 01/08/17 09:08; Admin Dose 100 MG; Start 01/02/17 at 09:00 Tamsulosin HCl (Flomax) 0.4 mg HS PO Last administered on 01/07/17 21:10; Admin Dose 0.4 MG; Start 01/02/17 at 21:00 Zolpidem Tartrate (Ambien) 10 mg HS PRN PO SLEEP Last administered on 01/07/17 22:51; Admin Dose 10 MG; Start 01/02/17 at 02:30 Pantoprazole (Protonix Tab) 40 mg DAILY@06 PO Last administered on 01/08/17 05: 44; Admin Dose 40 MG; Start 01/03/17 at 06:00 Prednisolone (Prednisolone) 5 mg DAILY PO Last administered on 01/08/17 09:09; Admin Dose 5 MG; Start 01/04/17 at 09:00 Cyclosporine (Sandimmune) 100 mg BID PO Last administered on 01/08/17 09:08; Admin Dose 100 MG; Start 01/03/17 at 21:00 Lorazepam (Ativan) 0.5 mg Q6H PRN PO ANXIETY; Start 01/04/17 at 17:30 Atorvastatin Calcium (Lipitor) 20 mg HS PO Last administered on 01/07/17 21:17 ; Admin Dose 20 MG; Start 01/05/17 at 21:00 Isosorbide Dinitrate (Isordil) 20 mg TID PO Last administered on 01/08/17 12:58 ; Admin Dose 20 MG; Start 01/07/17 at 21:00 NADEEM GUO Jan 08, 2017 14:08
[2017-01-08] MEDS: TAMSULOSIN (SR) 0.4 MG CAP PO SCH (21:08)
[2017-01-08] MEDS: ATORVASTATIN 20 MG TAB PO SCH (21:09)
[2017-01-08] MEDS: ZOLPIDEM 5 MG TAB PO PRN (22:13)
[2017-01-09] VITALS (10 sets, daily range): BP systolic 95–126; BP diastolic 59–87; PULSE 60–102; RESP 16–18
[2017-01-09] MEDS: morphine 2 MG INJ IV PRN ×4 (03:59→17:11)
[2017-01-09] MEDS: SOD CHLORIDE 0.9% 1,000 ML IV SCH (03:59)
[2017-01-09] MEDS: PANTOPRAZOLE (EC) 40 MG TAB PO SCH (06:15)
--- NOTE | 2017-01-09 08:19 | CONS ---
Date/Time of Note Date/Time of Note DATE: 01/09/17 TIME: :17 Assessment/Plan Assessment/Plan Additional Assessment/Plan 1. Chest pain seems better, cause not clear, likely musculoligamentous ? 2. Kidney transplant with stable renal fx as of yesterday, await labs today, if stable will gladly see again on request. Consultation Date/Type/Reason Admit Date/Time Jan 03, 2017 at 16:27 Type of Consultation: Cardiology Referring Provider: NIKOLAY PAGAN MD Detailed Summary Cardiovascular: chest pain (is still present, ? less, not realted to body position and no pleuritic. No cough or sob) Gastrointestinal: No no complaints Genitourinary: No no complaints Exam/Review of Systems Vital Signs Vitals Vital Signs Date Time Temp Pulse Resp B/P Pulse Ox O2 Delivery O2 Flow Rate FiO2 01/09/17 08:08 61 01/09/17 07:38 98.4 18 124/84 95 Intake and Output 01/08/17 01/08/17 01/09/17 15:00 23:00 07:00 Intake Total 1800 ml 850 ml Balance 1800 ml 850 ml Exam Neck: No jvd Respiratory: clear to auscultation Cardiovascular: regular rate and rhythm Gastrointestinal: soft, No tender Extremities: No edema (and no calf tend) Results Result Diagram: 01/08/17 0645 01/08/17 0648 Medications Medications Current Medications Sodium Chloride (NS) 1,000 ml @ 40 mls/hr Q24H IV Last administered on 03:59; Admin Dose 40 MLS/HR; Start 01/02/17 at 02:27 Ondansetron HCl (Zofran Inj) 4 mg Q6H PRN IV NAUSEA AND/OR VOMITING; Start at 02:30 Morphine Sulfate (morphine) 2 mg Q4H PRN IV PAIN LEVEL 7-10 Last administered on 01/09/17 03:59; Admin Dose 2 MG; Start 01/02/17 at 02:30 Folic Acid (Folic Acid) 1 mg DAILY PO Last administered on 01/08/17 09:09; Admin Dose 1 MG; Start 01/02/17 at 09:00 Gabapentin (Neurontin) 300 mg TID PO Last administered on 01/08/17 21:08; Admin Dose 300 MG; Start 01/02/17 at 09:00 Magnesium Oxide (Mag-Ox 400) 400 mg BID PO Last administered on 01/08/17 21:08 ; Admin Dose 400 MG; Start 01/02/17 at 09:00 Sertraline HCl (Zoloft) 100 mg DAILY PO Last administered on 01/08/17 09:08; Admin Dose 100 MG; Start 01/02/17 at 09:00 Tamsulosin HCl (Flomax) 0.4 mg HS PO Last administered on 01/08/17 21:08; Admin Dose 0.4 MG; Start 01/02/17 at 21:00 Zolpidem Tartrate (Ambien) 10 mg HS PRN PO SLEEP Last administered on 01/08/17 22:13; Admin Dose 10 MG; Start 01/02/17 at 02:30 Pantoprazole (Protonix Tab) 40 mg DAILY@06 PO Last administered on 01/09/17 06: 15; Admin Dose 40 MG; Start 01/03/17 at 06:00 Prednisolone (Prednisolone) 5 mg DAILY PO Last administered on 01/08/17 09:09; Admin Dose 5 MG; Start 01/04/17 at 09:00 Cyclosporine (Sandimmune) 100 mg BID PO Last administered on 01/08/17 21:09; Admin Dose 100 MG; Start 01/03/17 at 21:00 Lorazepam (Ativan) 0.5 mg Q6H PRN PO ANXIETY; Start 01/04/17 at 17:30 Atorvastatin Calcium (Lipitor) 20 mg HS PO Last administered on 01/08/17 21:09 ; Admin Dose 20 MG; Start 01/05/17 at 21:00 Isosorbide Dinitrate (Isordil) 20 mg TID PO Last administered on 01/08/17 21:09 ; Admin Dose 20 MG; Start 01/07/17 at 21:00 DEE MARSH MD Jan 09, 2017 08:19
[2017-01-09] MEDS: predniSOLONE 5 MG TAB PO SCH (08:51)
[2017-01-09] MEDS: CYCLOSPORINE 25 MG CAP PO SCH (08:51)
[2017-01-09] MEDS: MAGNESIUM OXIDE 400 MG TAB PO SCH (08:52)
[2017-01-09] MEDS: FOLIC ACID 1 MG TAB PO SCH (08:52)
[2017-01-09] MEDS: GABAPENTIN 300 MG CAP PO SCH ×2 (08:52→13:05)
[2017-01-09] MEDS: SERTRALINE 100 MG TAB PO SCH (08:52)
[2017-01-09] MEDS: ISOSORBIDE DINITRATE 10 MG TAB PO SCH ×2 (08:52→13:05)
--- NOTE | 2017-01-09 14:06 | CONS ---
Date/Time of Note Date/Time of Note DATE: 01/09/17 TIME: 14:03 Assessment/Plan Assessment/Plan Chief Complaint/Hosp Course IMPRESSION: 1. Chest pain, assess for acute coronary syndrome with patient having a negative stress in June 2016 for ischemia.-negative troponin x 3. Neg VQ scan today/lexiscan negative for ischemia LVEF 53% 2. History of cardiomyopathy, decreased left ventricular ejection fraction, last being approximately 44% by stress, 45-50 by echo this admit at b53% by stress. 3. Abnormal electrocardiogram with isolated T-wave flattening in lead III. 4. History of renal transplant. 5. History of dyslipidemia-LDL 127 HDL 33 6. Anxiety. Recc: -Tele -Contnue isordil with improved chest pain -Continue immunosuppresives -Continue statin -D/C planning Problems: Consultation Date/Type/Reason Admit Date/Time Jan 03, 2017 at 16:27 Initial Consult Date 01/02/2017 Type of Consultation: Cardiology Reason for Consultation chest pain Referring Provider: NIKOLAY APGAN MD Exam/Review of Systems Vital Signs Vitals Vital Signs Date Time Temp Pulse Resp B/P Pulse Ox O2 Delivery O2 Flow Rate FiO2 01/09/17 12:22 102 01/09/17 11:45 98.0 17 126/80 98 Intake and Output 01/08/17 01/08/17 01/09/17 15:00 23:00 07:00 Intake Total 1800 ml 850 ml Balance 1800 ml 850 ml Exam Review of Systems: CONSTITUTIONAL: No fevers, chills. PULMONARY: No sob CARDIOVASCULAR: No chest pain/palpitations GASTROINTESTINAL: No nausea/vomiting. GENITOURINARY: No hematuria/dysuria. MUSCULOSKELETAL: No myagias/arthalgias. PSYCHIATRIC: The patient denies depression. NEUROLOGIC: No weakness Constitutional: alert Psych: no complaints Head: normocephalic ENMT: mucosa pink and moist Neck: jvd, supple Respiratory: diminished breath sounds Cardiovascular: regular rate and rhythm Gastrointestinal: non-tender, soft Musculoskeletal: muscle tone (normal) Extremities: edema (none) Neurological: other (NBo foxcal deficits) Results Result Diagram: 01/08/17 0645 01/08/17 0648 Medications Medications Current Medications Sodium Chloride (NS) 1,000 ml @ 40 mls/hr Q24H IV Last administered on 03:59; Admin Dose 40 MLS/HR; Start 01/02/17 at 02:27 Ondansetron HCl (Zofran Inj) 4 mg Q6H PRN IV NAUSEA AND/OR VOMITING; Start at 02:30 Morphine Sulfate (morphine) 2 mg Q4H PRN IV PAIN LEVEL 7-10 Last administered on 01/09/17 13:05; Admin Dose 2 MG; Start 01/02/17 at 02:30 Folic Acid (Folic Acid) 1 mg DAILY PO Last administered on 01/09/17 08:52; Admin Dose 1 MG; Start 01/02/17 at 09:00 Gabapentin (Neurontin) 300 mg TID PO Last administered on 01/09/17 13:05; Admin Dose 300 MG; Start 01/02/17 at 09:00 Magnesium Oxide (Mag-Ox 400) 400 mg BID PO Last administered on 01/09/17 08:52 ; Admin Dose 400 MG; Start 01/02/17 at 09:00 Sertraline HCl (Zoloft) 100 mg DAILY PO Last administered on 01/09/17 08:52; Admin Dose 100 MG; Start 01/02/17 at 09:00 Tamsulosin HCl (Flomax) 0.4 mg HS PO Last administered on 01/08/17 21:08; Admin Dose 0.4 MG; Start 01/02/17 at 21:00 Zolpidem Tartrate (Ambien) 10 mg HS PRN PO SLEEP Last administered on 01/08/17 22:13; Admin Dose 10 MG; Start 01/02/17 at 02:30 Pantoprazole (Protonix Tab) 40 mg DAILY@06 PO Last administered on 01/09/17 06: 15; Admin Dose 40 MG; Start 01/03/17 at 06:00 Prednisolone (Prednisolone) 5 mg DAILY PO Last administered on 01/09/17 08:51; Admin Dose 5 MG; Start 01/04/17 at 09:00 Cyclosporine (Sandimmune) 100 mg BID PO Last administered on 01/09/17 08:51; Admin Dose 100 MG; Start 01/03/17 at 21:00 Lorazepam (Ativan) 0.5 mg Q6H PRN PO ANXIETY; Start 01/04/17 at 17:30 Atorvastatin Calcium (Lipitor) 20 mg HS PO Last administered on 01/08/17 21:09 ; Admin Dose 20 MG; Start 01/05/17 at 21:00 Isosorbide Dinitrate (Isordil) 20 mg TID PO Last administered on 01/09/17 13:05 ; Admin Dose 20 MG; Start 01/07/17 at 21:00 DASHA PRUITT Jan 09, 2017 14:06
--- NOTE | 2017-01-09 15:05 | PQ ---
Date/Time of Note Date/Time of Note DATE: 01/09/17 TIME: 14:59 Physician Query Documentation Clarification Dear Luis Antonio Floyd, A review of the medical record found a need for documentation clarification. 1. Chest pain, assess for acute coronary syndrome with patient having a negative stress in June 2016 for ischemia.-negative troponin x 3. Neg VQ scan today/lexiscan negative for ischemia LVEF 53% 2. History of cardiomyopathy, decreased left ventricular ejection fraction, last being approximately 44% by stress, 45-50 by echo this admit at b53% by stress. 3. Abnormal electrocardiogram with isolated T-wave flattening in lead III. Recc: -Tele -Contnue isordil with improved chest pain -Continue immunosuppresives -Continue statin Please clarify the suspected cause of chest pain. To facilitate accurate and complete coding, please tonia ( x ) the suspected diagnosis that apply: ( ) Chest pain dt unstable angina ( ) Chest pain dt demand ischemia (X ) Chest pain dt unclear etiology ( ) Others Please provide your response by clicking edit document, making your choice ( x ), click ok/save and finally click sign. You may also document your response on your progress notes. Thank you for your time. With appreciation, Mary Mcguire RN, BSN, CCS, CCDS Clinical Sales Planner Health Information Management, CD[employer] and Coding Services [phone] Room # 1525 - [address]~ [address] MARY MCGUIRE Jan 09, 2017 15:05 DASHA PRUITT Jan 14, 2017 00:51
--- NOTE | 2017-01-09 15:08 | RADRPT ---
PROCEDURE: Whole body bone scan study CLINICAL INDICATION: 41 -year-old patient with chest pain, for evaluation for skeletal metastases. TECHNIQUE: Following the intravenous injection of 25.1 mCi of Tc-99m MDP, whole body anterior and posterior planar images were obtained along with spot views of the chest. COMPARISON: No prior bone scans are available for comparison. FINDINGS: There is a suggestion of small questionable foci of low level tracer uptake in the left lateral appr oximately 4th, 8th and 9th ribs. No other definite abnormal areas of increased activity or asymmetries are visualized in the study an d distribution of radionuclide is homogeneous in the skull, spine, rib cages, sternum, pelvis and vi sualized portions of the upper and lower extremities. Of incidental note, there is a nonvisualization of the [place] kidneys. Physiologic activity is seen in the transplanted right pelvic kidney. IMPRESSION: 1. Questionable small foci of low level uptake in the left lateral approximately 4th, 8th and 9th ri bs likely due to prior trauma. 2. No other skeletal abnormalities. RPTAT: HH .Antoinette Pierre MD, MD Date Time Electronically viewed and signed by .Antoinette Pierre MD, MD on 01/09/2017 15:08 .L/
--- NOTE | 2017-01-14 00:01 | DS ---
DATE OF ADMISSION: 01/03/2017 DATE OF DISCHARGE: 01/09/2017 FINAL DIAGNOSES: 1. Atypical chest pain, most likely musculoskeletal. 2. Acute coronary syndrome ruled out. 3. Status post renal transplant. 4. History of gastritis. 5. Dyslipidemia. 6. Anxiety and depression. BRIEF HISTORY: The patient is a 41-year-old gentleman with history of renal transplant, was followe d by Dr. Shields as an outpatient, and the patient is on transplant anti-rejection medication. The p atient experienced chest pain on the left side which was 10/10 with no aggravating or relieving fact ors. The patient also stated that the pain radiates to the left arm. The patient was admitted for further evaluation and management. HOSPITAL COURSE: The patient was evaluated by Dr. Salmon in cardiology consultation. Cardiac enzy mes were negative x3. The patient also underwent Lexiscan which was negative for any ischemia. The patient was followed by Dr. Shields in nephrology consultation, and immunosuppressive regimen medica tion was optimized by Dr. Shields. The patient's creatinine was slightly elevated on admission, whic h decreased to normal value and was 0.96 upon discharge. The patient also underwent a bone scan whi ch did not show any skeletal abnormalities except questionable small foci of low-level uptake in the left lateral approximately 4th, 8th and 9th ribs, likely due to prior trauma. The patient was star jefe on Imdur and was given morphine p.r.n. for pain. The patient's condition improved, and the blanche ent was discharged home. CONDITION ON DISCHARGE: Hemodynamically stable. ACTIVITY: As patient tolerates. DIET: Regular diet. MEDICATION ON DISCHARGE: The patient was given prescription for: 1. Atorvastatin. 2. Cyclosporine 100 mg p.o. b.i.d. 3. [place] p.r.n. for pain 4. Prednisone 5 mg p.o. daily. The patient is to continue on: 1. Nexium. 2. Folic acid. 3. Gabapentin. 4. Ibuprofen p.r.n. 5. Magnesium oxide. 6. Zofran p.r.n. 7. Sertraline. 8. Tamsulosin. 9. Ambien p.r.n. for sleep. The patient is instructed to follow up with his primary care physician in 2 weeks. Interdisciplinary plan of care was established for this patient. Plan of care was discussed with Dr Sourav Pagan. Dictated By: NADEEM GUO CONCRETE PANEL INSTALLER for NIKOLAY PAGAN MD SR/BIBIANA Conf#: [id number] DID#: [id number]
== END 2017-01-09 19:20 | disposition home or self-care (01) | DRG 313 ==
LOC: FTE 21:54 → MS4 01-02 01:11 → OBSVTOIN 01-03 16:27
PROVIDERS: ADMIT Internal Medicine; ATTEND Internal Medicine
DX: R07.89 Other chest pain (principal); I42.9 Cardiomyopathy, unspecified; Z94.0 Kidney transplant status; R10.13 Epigastric pain; R11.0 Nausea; E78.5 Hyperlipidemia, unspecified; F41.8 Other specified anxiety disorders; K29.70 Gastritis, unspecified, without bleeding; Z79.899 Other long term (current) drug therapy; I10 Essential (primary) hypertension
CPT/HCPCS: 36415; 71010; 73030; 78306; 78452; 78582; 80048; 80053; 80061; 81001; 82550; 82553; 82962; 83036; 83735; 84100; 84300; 84443; 84484; 85025; 93005; 93017; 93306; 96374; 96375; A9503; G0378; A9500; A9505; A9540; C9113; J2270; J2405; J2785; J7030; J7507; J7510; J7512

== ENCOUNTER 2017-02-01 17:52 | Emergency (ER) | payer MEDICARE, OTHER ==
[~2017-02-01] VITALS: Wt 78.0 kg
[~2017-02-01 17:52] MED LIST changes: +ATOR20TA65 PO; -ATOR40TA68 PO; -CIPR500T4 PO; -FAMO20TA18 PO; +IBUP200C PO; -METO-448 PO; -METO10TA92 PO; -MYCO360T PO; -OMEP20CA16 PO; +PRED5TAB50 PO; +SAN25 PO; -TACR1CAP26 PO
[2017-02-01 19:02] LABS: BASOPHILS % 0.3 % (0.0-2.0); EOSINOPHILS # 0.1 10^3/ul (0.0-0.5); EOSINOPHILS % 1.2 % (0.0-7.0); HEMATOCRIT 42.5 % (42.0-52.0); HEMOGLOBIN 14.2 g/dl (14.0-18.0); LYMPHOCYTES # 1.2 10^3/ul (0.8-2.9); LYMPHOCYTES % 17.7 % (15.0-51.0); MEAN CORPUSCULAR HEMOGLOBIN 28.9 pg (29.0-33.0); MEAN CORPUSCULAR HGB CONC 33.4 g/dl (32.0-37.0); MEAN CORPUSCULAR VOLUME 86.6 fl (82.0-101.0); MEAN PLATELET VOLUME 10.3 fl (7.4-10.4); MONOCYTE # 0.5 10^3/ul (0.3-0.9); NEUTROPHILS % 73.1 % (39.0-77.0); PLATELET COUNT 232 10^3/UL (140-415); RED BLOOD COUNT 4.91 10^6/ul (4.70-6.10); RED CELL DISTRIBUTION WIDTH 14.4 % (11.5-14.5); WHITE BLOOD COUNT 6.9 10^3/ul (4.8-10.8)
[2017-02-01 19:12] LABS: ADD SCAN DIFF NO
[2017-02-01 19:18] LABS: INR 1.04; PARTIAL THROMBOPLASTIN TIME 25.6 Sec (25.0-35.0); PROTIME 13.6 Sec (12.2-14.2); PT RATIO 1.1
[2017-02-01 19:19] LABS: ANION GAP 14 (8-16); BLOOD UREA NITROGEN 15 mg/dl (7-20); CALCIUM 9.7 mg/dl (8.4-10.2); CARBON DIOXIDE 24 mmol/L (21-31); CHLORIDE 104 mmol/L (97-110); GLUCOSE 120 mg/dl (70-220); POTASSIUM 4.2 mmol/L (3.5-5.1); SODIUM 138 mmol/L (135-144)
[2017-02-01] MEDS ORDERED: morphine 4 MG/ML VIAL IV STA (19:30)
[2017-02-01 20:10] LABS: TROPONIN-I < 0.012 ng/ml (0.00-0.12)
--- NOTE | 2017-02-01 20:23 | RADRPT ---
PROCEDURE: XR Chest. CLINICAL INDICATION: Chest pain. TECHNIQUE: Single frontal chest x-ray. COMPARISON: 01/01/2017 FINDINGS: The cardiomediastinal silhouette is unremarkable. There is no congestive heart failure.. No focal i nfiltrate is seen. There is no pleural effusion. There is no pneumothorax. The osseous structures are unremarkable. IMPRESSION: 1. No active disease. RPTAT: [facility] .Mode Blake MD, MD Date Time Electronically viewed and signed by .Mode Blake MD, on 02/01/2017 20:22 .K/
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
[2017-02-01] MEDS ORDERED: HYDR-906 PO (20:40)
[2017-02-01 20:50] VITALS: BP 123/97; PULSE 70; RESP 19; TEMP 98
[2017-02-01] MEDS ORDERED: HYDROCODONE/APAP (5/325) TAB PO ONE (21:00)
== END 2017-02-01 20:58 | disposition home or self-care (01) ==
LOC: E/R 17:52
DX: R07.9 Chest pain, unspecified (principal); I10 Essential (primary) hypertension
CPT/HCPCS: 36415; 71010; 80048; 84484; 85025; 85610; 85730; 93005; 96374; 99285; J2270

== ENCOUNTER 2017-02-19 18:07 | Emergency (ER) | payer OTHER ==
[~2017-02-19] VITALS: Ht 162.6 cm; Wt 80.0 kg
[2017-02-19 18:13] VITALS: Ht 162.6 cm; Wt 80.0 kg
[2017-02-19] MEDS ORDERED: LIDOCAINE/MYLANTA 40 ML BTL PO ONE (22:00)
[2017-02-19] MEDS ORDERED: ONDANSETRON 4 MG INJ IV ONE (22:00)
[2017-02-19] MEDS ORDERED: morphine 4 MG/ML VIAL IV ONE (22:00)
[2017-02-19 22:18] LABS: ADD SCAN DIFF NO
[2017-02-19 22:21] LABS: BASOPHILS % 0.4 % (0.0-2.0); EOSINOPHILS # 0.1 10^3/ul (0.0-0.5); EOSINOPHILS % 0.6 % (0.0-7.0); HEMOGLOBIN 14.9 g/dl (14.0-18.0); LYMPHOCYTES # 1.7 10^3/ul (0.8-2.9); LYMPHOCYTES % 18.8 % (15.0-51.0); MEAN CORPUSCULAR HEMOGLOBIN 27.9 pg (29.0-33.0); MEAN CORPUSCULAR HGB CONC 32.4 g/dl (32.0-37.0); MEAN CORPUSCULAR VOLUME 86.1 fl (82.0-101.0); MEAN PLATELET VOLUME 10.8 fl (7.4-10.4); MONOCYTE # 0.7 10^3/ul (0.3-0.9); MONOCYTES % 7.8 % (0.0-11.0); NEUTROPHIL # 6.6 10^3/ul (1.6-7.5); NEUTROPHILS % 71.6 % (39.0-77.0); PLATELET COUNT 278 10^3/UL (140-415); RED BLOOD COUNT 5.34 10^6/ul (4.70-6.10); RED CELL DISTRIBUTION WIDTH 14.5 % (11.5-14.5); WHITE BLOOD COUNT 9.2 10^3/ul (4.8-10.8)
[2017-02-19 22:24] LABS: INR 1.01; PROTIME 13.3 Sec (12.2-14.2)
[2017-02-19 22:25] LABS: PARTIAL THROMBOPLASTIN TIME 27.9 Sec (25.0-35.0)
--- NOTE | 2017-02-19 22:55 | RADRPT ---
PROCEDURE: XR Chest. CLINICAL INDICATION: Chest pain. TECHNIQUE: Portable AP upright view of the chest was obtained. COMPARISON: 02/01/2017 FINDINGS: The cardiomediastinal silhouette is within normal limits. The lungs are clear. There is no evidenc e for pleural effusion, pneumothorax or pulmonary vascular congestion. The osseous structures are i ntact with no evidence for acute abnormality. RPTAT:HJJR IMPRESSION: No evidence for acute intrathoracic pathology or interval change from 02/01/2017. Mega Quiles Physician Date Time Electronically viewed and signed by Mega Quiles Physician on 02/19/2017 22:55 /
[2017-02-19 23:01] LABS: ALANINE AMINOTRANSFERASE 43 IU/L (13-69); ALBUMIN 4.7 g/dl (3.3-4.9); ALBUMIN/GLOBULIN RATIO 1.23; ALKALINE PHOSPHATASE 108 IU/L (42-121); ANION GAP 22 (8-16); ASPARTATE AMINO TRANSFERASE 39 IU/L (15-46); BILIRUBIN,INDIRECT 0.3 mg/dl (0-1.1); BILIRUBIN,TOTAL 0.3 mg/dl (0.2-1.3); BLOOD UREA NITROGEN 20 mg/dl (7-20); CALCIUM 10.4 mg/dl (8.4-10.2); CARBON DIOXIDE 24 mmol/L (21-31); CHLORIDE 99 mmol/L (97-110); CREATININE 1.02 mg/dl (0.61-1.24); GLUCOSE 105 mg/dl (70-220); POTASSIUM 4.3 mmol/L (3.5-5.1); SODIUM 141 mmol/L (135-144); TOTAL PROTEIN 8.5 g/dl (6.1-8.1)
[2017-02-19 23:13] LABS: B-TYPE NATRIURETIC PEPTIDE 36 PG/ML (0-125)
[2017-02-19 23:21] LABS: TROPONIN-I < 0.012 ng/ml (0.00-0.12)
[2017-02-20] MEDS ORDERED: HYDROmorphONE 1 MG/ML SYG IV STA (00:34)
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
[2017-02-20] MEDS ORDERED: HYDR-902 PO (01:49)
[2017-02-20 02:49] VITALS: BP 145/99; PULSE 64; RESP 14; TEMP 98.6
== END 2017-02-20 02:50 | disposition home or self-care (01) ==
LOC: E/R 18:07
DX: R07.9 Chest pain, unspecified (principal); I10 Essential (primary) hypertension
CPT/HCPCS: 71010; 80053; 83880; 84484; 85025; 85610; 85730; 93005; J1170; J2270; J2405; 96374; 96375

== ENCOUNTER 2017-02-26 18:55 | Emergency (ER) | payer OTHER ==
[~2017-02-26] VITALS: Ht 177.8 cm; Wt 78.5 kg
[~2017-02-26 18:55] MED LIST changes: +HYDR-902 PO
[2017-02-26 19:03] VITALS: Ht 177.8 cm; Wt 78.5 kg
[2017-02-26] MEDS ORDERED: HYDROmorphONE 1 MG/ML SYG IV STA (19:32)
[2017-02-26] MEDS ORDERED: ONDANSETRON 4 MG INJ IV STA (19:32)
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
--- NOTE | 2017-02-26 19:51 | RADRPT ---
PROCEDURE: XR Chest. CLINICAL INDICATION: Chest pain. TECHNIQUE: Single frontal view of the chest. COMPARISON: 09/19/2016. FINDINGS: Heart size is at upper limits of normal. Improved lung inflation over interval with persistent but decreased discoid atelectasis at the right mid lung. The lungs are clear. No signs of pleural fluid or pneumothorax are seen. The osseous structures and soft tissues are unremarkable. IMPRESSION: Improved lung inflation over interval with persistent but improved right mid lung discoid atelectasi s. RPTAT: [facility] Physician Anitha Date Time Electronically viewed and signed by Physician Anitha on 02/26/2017 19:51 RS/
[2017-02-26 19:56] LABS: BASOPHILS % 0.4 % (0.0-2.0); EOSINOPHILS % 0.4 % (0.0-7.0); HEMATOCRIT 43.1 % (42.0-52.0); HEMOGLOBIN 14.5 g/dl (14.0-18.0); LYMPHOCYTES # 1.8 10^3/ul (0.8-2.9); LYMPHOCYTES % 15.8 % (15.0-51.0); MEAN CORPUSCULAR HEMOGLOBIN 28.7 pg (29.0-33.0); MEAN CORPUSCULAR HGB CONC 33.6 g/dl (32.0-37.0); MEAN CORPUSCULAR VOLUME 85.3 fl (82.0-101.0); MEAN PLATELET VOLUME 10.6 fl (7.4-10.4); MONOCYTE # 0.7 10^3/ul (0.3-0.9); MONOCYTES % 6.2 % (0.0-11.0); NEUTROPHIL # 8.6 10^3/ul (1.6-7.5); PLATELET COUNT 277 10^3/UL (140-415); RED BLOOD COUNT 5.05 10^6/ul (4.70-6.10); RED CELL DISTRIBUTION WIDTH 14.5 % (11.5-14.5); WHITE BLOOD COUNT 11.3 10^3/ul (4.8-10.8)
[2017-02-26 20:12] LABS: PT RATIO 1.1
[2017-02-26 20:13] LABS: PARTIAL THROMBOPLASTIN TIME 27.3 Sec (25.0-35.0)
[2017-02-26 20:19] LABS: ANION GAP 20 (8-16); BLOOD UREA NITROGEN 19 mg/dl (7-20); CALCIUM 9.9 mg/dl (8.4-10.2); CARBON DIOXIDE 25 mmol/L (21-31); CHLORIDE 99 mmol/L (97-110); GLUCOSE 102 mg/dl (70-220); POTASSIUM 4.4 mmol/L (3.5-5.1); SODIUM 140 mmol/L (135-144)
[2017-02-26 20:34] LABS: TROPONIN-I < 0.012 ng/ml (0.00-0.12)
[2017-02-26 20:42] VITALS: BP 124/84; PULSE 73; RESP 18
[2017-02-26 20:44] LABS: PROTIME 13.3 Sec (12.2-14.2)
== END 2017-02-26 20:45 | disposition home or self-care (01) ==
LOC: E/R 18:55
DX: R07.9 Chest pain, unspecified (principal); G89.29 Other chronic pain; I10 Essential (primary) hypertension; Z72.89 Other problems related to lifestyle; Z94.0 Kidney transplant status
CPT/HCPCS: 36415; 71010; 80048; 84484; 85025; 85610; 85730; 93005; 96374; 96375; J1170; J2405

== ENCOUNTER 2017-05-30 11:24 | Emergency (ER) | payer MEDICARE, OTHER ==
[~2017-05-30] VITALS: Ht 170.2 cm; Wt 79.0 kg
[~2017-05-30 11:24] MED LIST changes: -HYDR-906 PO
[2017-05-30 11:28] VITALS: Ht 170.2 cm; Wt 79.0 kg
[2017-05-30] MEDS ORDERED: SOD CHLORIDE 0.9% 1,000 ML IV STA (13:34)
[2017-05-30] MEDS ORDERED: FAMOTIDINE 20 MG INJ IV STA (13:34)
[2017-05-30] MEDS ORDERED: morphine 2 MG INJ IV STA (13:34)
[2017-05-30] MEDS ORDERED: ONDANSETRON INJ 8 MG in DEXTROSE 5% 50 ML IV STA (13:34)
[2017-05-30 13:58] LABS: BASOPHILS % 0.3 % (0.0-2.0); EOSINOPHILS # 0.1 10^3/ul (0.0-0.5); EOSINOPHILS % 0.6 % (0.0-7.0); HEMATOCRIT 45.5 % (42.0-52.0); HEMOGLOBIN 15.2 g/dl (14.0-18.0); LYMPHOCYTES # 1.7 10^3/ul (0.8-2.9); MEAN CORPUSCULAR HEMOGLOBIN 28.2 pg (29.0-33.0); MEAN CORPUSCULAR HGB CONC 33.4 g/dl (32.0-37.0); MEAN CORPUSCULAR VOLUME 84.4 fl (82.0-101.0); MEAN PLATELET VOLUME 10.6 fl (7.4-10.4); MONOCYTE # 0.8 10^3/ul (0.3-0.9); NEUTROPHIL # 7.4 10^3/ul (1.6-7.5); NEUTROPHILS % 73.4 % (39.0-77.0); PLATELET COUNT 279 10^3/UL (140-415); RED BLOOD COUNT 5.39 10^6/ul (4.70-6.10); RED CELL DISTRIBUTION WIDTH 13.7 % (11.5-14.5)
[2017-05-30] MEDS ORDERED: ONDANSETRON 4 MG INJ ONE (14:00)
[2017-05-30 14:11] LABS: ADD UMIC YES; UR AMORPHOUS CRYSTAL FEW /HPF (NONE SEEN); UR ASCORBIC ACID NEGATIVE (NEGATIVE); UR BACTERIA FEW /HPF (NONE SEEN); UR BILIRUBIN (Dip) NEGATIVE (NEGATIVE); UR BLOOD (Dip) 1+ mg/dL (NEGATIVE); UR CLARITY SLIGHTLY CLOUDY (CLEAR); UR COLOR YELLOW (YELLOW); UR GLUCOSE (Dip) 1+ mg/dL (NEGATIVE); UR KETONES (Dip) NEGATIVE (NEGATIVE); UR LEUKOCYTE ESTERASE (Dip) NEGATIVE Leu/ul (NEGATIVE); UR NITRITE (Dip) NEGATIVE (NEGATIVE); UR RBC 1 /HPF (0-5); UR SPECIFIC GRAVITY (Dip) 1.014 (1.003-1.030); UR TOTAL PROTEIN (Dip) 2+ mg/dl (NEGATIVE); UR UROBILINOGEN (Dip) NEGATIVE (NEGATIVE)
[2017-05-30 14:18] LABS: ALBUMIN 5.3 g/dl (3.3-4.9); ALBUMIN/GLOBULIN RATIO 1.39; BILIRUBIN,INDIRECT 0.5 mg/dl (0-1.1); BILIRUBIN,TOTAL 0.5 mg/dl (0.2-1.3); CALCIUM 9.7 mg/dl (8.4-10.2); CREATININE 0.94 mg/dl (0.61-1.24); POTASSIUM 4.4 mmol/L (3.5-5.1); TOTAL PROTEIN 9.1 g/dl (6.1-8.1)
[2017-05-30] MEDS ORDERED: ONDANSETRON 4 MG INJ IV STA ×2 (14:40→15:17)
[2017-05-30 15:09] VITALS: TEMP 98
[2017-05-30] MEDS ORDERED: morphine 4 MG/ML VIAL IV STA (15:17)
--- NOTE | 2017-05-30 15:59 | RADRPT ---
PROCEDURE: CT ABDOMEN AND PELVIS WITHOUT CONTRAST. CLINICAL INDICATION: Abdominal pain TECHNIQUE: CT scan of the abdomen and pelvis without contrast was performed on a multidetector hig h-resolution CT scanner. The patient was scanned without intravenous contrast. Coronal and sagittal reformatted images were obtained from the axial source images. Images were reviewed on a high-resol [employer] PACS workstation. The total exam CTDI equals 11.4 mGy and the total exam DLP equals 672 mGy-cm . One or more of the following dose reduction techniques were used: Automated exposure control. Adjustment of the mA and/or kV according to patient size. Use of iterative reconstruction technique. COMPARISON: September 07, 2016 FINDINGS: CT abdomen: The lung bases are clear. The heart size is within limits. There is no significant pericardial effus ion. Hepatic morphology is within normal limits. No gross contour deforming masses. The gallbladder is wi thin normal limits. No evidence of intrahepatic or extrahepatic biliary dilatation. The spleen and pancreas are within normal limits. Both adrenal glands are within normal limits. Both kidneys are and normal anatomic position and atrophic. No evidence of obstruction or hydronephr osis. Punctate 1 mm stone is noted within the mid pole right kidney. The visualized GI tract demonstrate normal caliber loops of small and large bowel. No evidence of delonte wel obstruction. The appendix is within normal limits. The unenhanced aorta is unremarkable. No significant retroperitoneal lymphadenopathy. CT pelvis: The bladder is distended. The prostate gland is normal size. There is a small fat-containing right i nguinal hernia. The rectosigmoid colon appears to be within normal limits. No significant free fluid . No significant pelvic lymphadenopathy. There is a right lower quadrant transplant kidney, with mil d right-sided hydronephrosis. The visualized osseous structures, appears to be within normal limits. IMPRESSION: 1. Right lower quadrant transplant kidney with mild right-sided hydronephrosis. The bladder is diste nded. Cannot exclude underlying bladder outlet obstruction or neurogenic bladder. Recommend decompre ssion. 2. Markedly atrophic bilateral ruby kidneys. 3. No evidence of bowel obstruction. The appendix is within normal limits. 4. No evidence of free fluid or free air. No gross focal fluid collections. 5. Small fat containing right inguinal hernia. RPTAT: AAPP Mark Monroe, Physician Date Time Electronically viewed and signed by Mark Monroe Physician on 05/30/2017 15:59 JL/
[2017-05-30] MEDS ORDERED: HYDR-906 PO (17:50)
[2017-05-30] MEDS ORDERED: ONDA4TAB8 PO (17:50)
[2017-05-30 18:20] VITALS: BP 138/78; PULSE 75; RESP 17
--- NOTE | 2017-06-01 12:17 | ERD ---
ER Documentation Chief Complaint Chief Complaint abdominal pain and vomiting x 3 days HPI 41 y/o male with history of kidney transplant presents to the ED c/o 3 days with abdominal discomfort and nausea/vomiting since today. The abdominal pain had an insidious onset, is constant, diffuse, 5/10 but today it got worse reaching 8-9/10 associated with 3 episodes of postprandial emesis. Denies fever or chills, no dysuria, denies diarrhea or constipation. No suspicious food, no recent traveling, no sick contact. No treatment attempted at this time. ROS SYSTEMIC symptoms: no fever, chills, no night sweats, no weight loss EYE symptoms: No blurred vision, no eye discharge OTOLARYNGEAL symptoms: No hearing loss. No ear pain, no sore throat CARDIOVASCULAR symptoms: No chest pain or discomfort, no palpitations. PULMONARY symptoms: No dyspnea, no cough, no wheezing. GASTROINTESTINAL symptoms: + abdominal pain, + nausea, + vomiting, no diarrhea MUSCULOSKELETAL symptoms: No arthralgias, no muscle aches. NEUROLOGY symptoms: No confusion, no syncope, no numbness or tingling. SKIN no rashes All systems reviewed and are negative except as per history of present illness. Medications Home Meds Active Scripts Ondansetron Hcl* (Zofran*) 4 Mg Tablet, 4 MG PO Q6H for NAUSEA AND/OR VOMITING, #30 TAB Prov:ARIK TELLEZ MD 05/30/17 Hydrocodone/Acetaminophen ([place] 5-325 Tablet) 1 Each Tablet, 1 TAB PO Q6H Y for PAIN, #20 TAB Prov:ARIK TELLEZ MD 05/30/17 Hydrocodone/Acetaminophen ([place] 10-325 Tablet) 1 Each Tablet, 1 TAB PO Q6H Y for PAIN, #20 TAB Prov:ELIER OLIVA 02/20/17 Atorvastatin Calcium (Atorvastatin Calcium) 20 Mg Tablet, 20 MG PO HS for 30 Days, TAB Prov:NADEEM GUO 01/08/17 Cyclosporine* (Sandimmune*) 25 Mg Cap, 100 MG PO BID for 30 Days, CAP Prov:NADEEM GUO 01/08/17 Prednisolone* (Millipred*) 5 Mg Tab, 5 MG PO DAILY for 30 Days, TAB Prov:NADEEM GUO 01/08/17 Ondansetron Hcl* (Zofran*) 4 Mg Tablet, 4 MG PO Q6H for NAUSEA AND/OR VOMITING, #30 TAB Prov:LO RIOS PA-C 08/12/16 Reported Medications Ibuprofen* (Ibuprofen*) 200 Mg Capsule, 400 MG PO Q6 for PAIN, CAP 01/02/17 Esomeprazole Mag Trihydrate (Nexium) 40 Mg Capsule.dr, 40 MG PO BID, #60 CAP 06/18/16 Gabapentin* (Gabapentin*) 300 Mg Capsule, 300 MG PO TID, #90 CAP 06/08/16 Tamsulosin Hcl* (Tamsulosin Hcl*) 0.4 Mg Cap.er.24h, 0.4 MG PO HS, CAP 03/27/15 Sertraline Hcl* (Sertraline Hcl*) 100 Mg Tablet, 100 MG PO DAILY, TAB 03/27/15 Magnesium Oxide* (Magnesium Oxide*) 400 Mg Tablet, 400 MG PO BID, TAB 03/27/15 Zolpidem Tartrate* (Ambien*) 10 Mg Tablet, 10 MG PO HS Y for SLEEP, TAB 12/18/13 Folic Acid* (Folic Acid*) 1 Mg Tablet, 1 MG PO DAILY, TAB 12/18/13 Allergies Allergies: Coded Allergies: No Known Allergy (Unverified , 02/26/17) PMhx/Soc History of Surgery: Yes (kidney transplant) Anesthesia Reaction: No Hx Neurological Disorder: No Hx Respiratory Disorders: No Hx Cardiac Disorders: Yes (HTN) Hx Psychiatric Problems: No Hx Miscellaneous Medical Probl: No Hx Alcohol Use: No Hx Substance Use: No Hx Tobacco Use: No Physical Exam Vitals Vital Signs Date Time Temp Pulse Resp B/P Pulse Ox O2 Delivery O2 Flow Rate FiO2 05/30/17 18:20 75 17 138/78 100 Room Air 05/30/17 15:09 98.0 66 20 127/85 98 Room Air 05/30/17 11:28 98.6 89 18 152/104 97 Physical Exam Const: Alert, hydrated, in mild distress due to pain and nausea Head: Atraumatic Eyes: Normal Conjunctiva ENT: Normal External Ears, Nose and Mouth. Neck: Full range of motion..~ No meningismus. Resp: Clear to auscultation bilaterally Cardio: Regular rate and rhythm, no murmurs Abd: Soft, mildly distended, diffuse tenderness to deep palpation. no peritoneal signs. Normal bowel sounds Skin: No petechiae or rashes Back: No midline or flank tenderness Ext: No cyanosis, or edema Neur: Awake and alert Psych: Normal Mood and Affect Result Diagram: 05/30/17 1350 05/30/17 1350 Results 24 hrs Laboratory Tests Test 05/30/17 13:50 White Blood Count 10.010^3/ul Red Blood Count 5.3910^6/ul Hemoglobin 15.2g/dl Hematocrit 45.5% Mean Corpuscular Volume 84.4fl Mean Corpuscular Hemoglobin 28.2pg Mean Corpuscular Hemoglobin Concent 33.4g/dl Red Cell Distribution Width 13.7% Platelet Count 15841^3/UL Mean Platelet Volume 10.6fl Neutrophils % 73.4% Lymphocytes % 17.0% Monocytes % 8.0% Eosinophils % 0.6% Basophils % 0.3% Nucleated Red Blood Cells % 0.0/100WBC Neutrophils # 7.410^3/ul Lymphocytes # 1.710^3/ul Monocytes # 0.810^3/ul Eosinophils # 0.110^3/ul Basophils # 0.010^3/ul Nucleated Red Blood Cells # 0.010^3/ul Urine Color YELLOW Urine Clarity SLIGHTLY CLOUDY Urine pH 7.0 Urine Specific [place] 1.014 Urine Ketones NEGATIVEmg/dL Urine Nitrite NEGATIVEmg/dL Urine Bilirubin NEGATIVEmg/dL Urine Urobilinogen NEGATIVEmg/dL Urine Leukocyte Esterase NEGATIVELeu/ul Urine Microscopic RBC 1/HPF Urine Microscopic WBC 5/HPF Urine Amorphous Crystals FEW/HPF Urine Bacteria FEW/HPF Urine Hemoglobin 1+mg/dL Urine Glucose 1+mg/dL Urine Total Protein 2+mg/dl Sodium Level 138mmol/L Potassium Level 4.4mmol/L Chloride Level 100mmol/L Carbon Dioxide Level 25mmol/L Anion Gap 17 Blood Urea Nitrogen 17mg/dl Creatinine 0.94mg/dl Glucose Level 99mg/dl Calcium Level 9.7mg/dl Magnesium Level 1.7mg/dl Total Bilirubin 0.5mg/dl Direct Bilirubin 0.00mg/dl Indirect Bilirubin 0.5mg/dl Aspartate Amino Transf (AST/SGOT) 42IU/L Alanine Aminotransferase (ALT/SGPT) 42IU/L Alkaline Phosphatase 113IU/L Total Protein 9.1g/dl Albumin 5.3g/dl Globulin 3.80g/dl Albumin/Globulin Ratio 1.39 Lipase 83U/L Current Medications Medications (Trade) Dose Ordered Sig/Marcelino Route PRN Reason Start Time Stop Time Status Last Admin Dose Admin Sodium Chloride (NS) 1,000 ml @ 1,000 mls/hr Q1H STAT IV 05/30/17 13:34 05/30/17 14:33 DC 05/30/17 14:03 Morphine Sulfate 2 mg 2 mg ONCE STAT IV 05/30/17 13:34 05/30/17 13:36 DC 05/30/17 14:03 Ondansetron HCl/ Dextrose (Zofran Inj/D5W) 54 ml @ 200 mls/hr ONCE STAT IV 05/30/17 13:34 05/30/17 13:50 DC Famotidine (Pepcid Iv) 20 mg ONCE STAT IV 05/30/17 13:34 05/30/17 13:36 DC 05/30/17 14:03 Ondansetron HCl (Zofran Inj) 4 mg STK-MED ONCE .ROUTE 05/30/17 14:00 05/30/17 14:01 DC Ondansetron HCl (Zofran Inj) 4 mg ONCE STAT IV 05/30/17 14:40 05/30/17 14:43 DC 05/30/17 14:46 Morphine Sulfate (morphine) 4 mg ONCE STAT IV 05/30/17 15:17 05/30/17 15:18 DC 05/30/17 15:29 Ondansetron HCl (Zofran Inj) 4 mg ONCE STAT IV 05/30/17 15:17 05/30/17 15:18 DC 05/30/17 15:29 DIAGNOSTIC IMAGING REPORT Patient: HANNA GARCIA : 1975 Age: 41 Sex: M MR #: [id number] DOS: 05/30/17 1334 Ordering MD: ARIK TELLEZ MD [facility] Room/Bed: PROCEDURE: CT ABDOMEN AND PELVIS WITHOUT CONTRAST. CLINICAL INDICATION: Abdominal pain TECHNIQUE: CT scan of the abdomen and pelvis without contrast was performed on a multidetector high-resolution CT scanner. The patient was scanned without intravenous contrast. Coronal and sagittal reformatted images were obtained from the axial source images. Images were reviewed on a high-resolution PACS workstation. The total exam CTDI equals 11.4 mGy and the total exam DLP equals 672 mGy-cm. One or more of the following dose reduction techniques were used: Automated exposure control. Adjustment of the mA and/or kV according to patient size. Use of iterative reconstruction technique. COMPARISON: September 07, 2016 FINDINGS: CT abdomen: The lung bases are clear. The heart size is within limits. There is no significant pericardial effusion. Hepatic morphology is within normal limits. No gross contour deforming masses. The gallbladder is within normal limits. No evidence of intrahepatic or extrahepatic biliary dilatation. The spleen and pancreas are within normal limits. Both adrenal glands are within normal limits. Both kidneys are and normal anatomic position and atrophic. No evidence of obstruction or hydronephrosis. Punctate 1 mm stone is noted within the mid pole right kidney. The visualized GI tract demonstrate normal caliber loops of small and large bowel. No evidence of bowel obstruction. The appendix is within normal limits. The unenhanced aorta is unremarkable. No significant retroperitoneal lymphadenopathy. CT pelvis: The bladder is distended. The prostate gland is normal size. There is a small fat-containing right inguinal hernia. The rectosigmoid colon appears to be within normal limits. No significant free fluid. No significant pelvic lymphadenopathy. There is a right lower quadrant transplant kidney, with mild right-sided hydronephrosis. The visualized osseous structures, appears to be within normal limits. IMPRESSION: 1. Right lower quadrant transplant kidney with mild right-sided hydronephrosis. The bladder is distended. Cannot exclude underlying bladder outlet obstruction or neurogenic bladder. Recommend decompression. 2. Markedly atrophic bilateral huslia kidneys. 3. No evidence of bowel obstruction. The appendix is within normal limits. 4. No evidence of free fluid or free air. No gross focal fluid collections. 5. Small fat containing right inguinal hernia. RPTAT: AAPP Physician Kurt Date Time Electronically viewed and signed by Physician Kurt on 05/30/2017 15:59 Procedures/MDM 41 y/o male with history of kidney transplant present with 3 days o progressive abdominal pain and nausea. Differential diagnosis include but not limited to kidney rejection, appendicitis , cholecystitis, diverticulitis, pancreatitis, pyelonephritis, gastroenteritis. Labs were ordered reviewed and discussed with patient. CBC, electrolytes, kidney function, LFT, lipase in normal range. CT of the abdomen showed: 1. Right lower quadrant transplant kidney with mild right-sided hydronephrosis. The bladder is distended. Cannot exclude underlying bladder outlet obstruction or neurogenic bladder. Recommend decompression. 2. Markedly atrophic bilateral huslia kidneys. 3. No evidence of bowel obstruction. The appendix is within normal limits. 4. No evidence of free fluid or free air. No gross focal fluid collections. 5. Small fat containing right inguinal hernia. - ED Course: Patient remained afebrile, stable, pain improved after IV fluids and medications, refers feeling better. No evidence of acute abdomen, most likely mild urinary retention and gastroenteritis. Results and medical impression discussed with patient who agrees with management. The patient will be discharged home with a Rx for Zofran and Williamson prn severe pain. Side effects of prescribed narcotic medications (drowsiness, constipation, habituation) were reviewed. If symptoms persist, worsen or new symptoms develop, then patient is instructed to follow-up with his doctor. If the patient is unable to see the primary care provider, then return to the ED immediately. Departure Diagnosis: Primary Impression: History of kidney transplant Additional Impressions: Acute urinary retention Abdominal pain Condition: Stable Patient Instructions: Abdominal Pain Additional Instructions: Muchas yoko por [facility] para martinez servicio. Esperamos que en martinez visita a la john de emergencia martinez problema medico haya sido solucionado y que se sienta mucho mejor. Para estar seguros que martinez mejoria sigue en proceso, le pedimos el favor de hacer vinny kt de seguimiento medico con martinez doctor primario en los proximos 2-4 negron. Lleve con usted estos documentos y las medicinas recetadas. Si donavan sintomas empeoran y no puede ayesha a martinez doctor, por favor regrese a john de emergencia. CH-MCPHERSON,ARIK MD Jun 01, 2017 12:11
== END 2017-05-30 18:22 | disposition home or self-care (01) ==
LOC: FTE 11:24
DX: R33.9 Retention of urine, unspecified (principal); I10 Essential (primary) hypertension; Z94.0 Kidney transplant status
CPT/HCPCS: 36415; 74176; 80053; 81001; 83690; 83735; 85025; 87086; 96374; 96375; 96376; 99285; J2270; J2405; J7030

== ENCOUNTER 2017-07-19 16:15 | Emergency (ER) | payer MEDICARE, OTHER ==
[~2017-07-19] VITALS: Ht 167.6 cm; Wt 78.6 kg
[~2017-07-19 16:15] MED LIST changes: +HYDR-906 PO
[2017-07-19 16:24] VITALS: Ht 167.6 cm; Wt 78.6 kg
[2017-07-19] MEDS ORDERED: SOD CHLORIDE 0.9% 500 ML IV STA (21:00)
[2017-07-19] MEDS ORDERED: LORAZEPAM 2 MG INJ IV ONE (21:00)
--- NOTE | 2017-07-19 21:05 | ERD ---
ER Documentation Chief Complaint Chief Complaint Complains of Chest Pain HPI 41-year-old man complains of constant left-sided chest pain since yesterday and recent anxiety/grief. He states his grandson who lived in [facility] unexpectedly 8 months old. This has been worrying him, causing him extreme grief, and palpitations with chest pain. He states with previous anxiety he has experienced chest pain. He states the pain is nonexertional nonradiating, he denies suicidal homicidal ideation, no fevers or chills, no cough, no weight loss, no vomiting or diarrhea. Patient denies shortness of breath. ROS All systems reviewed and are negative except as per history of present illness. Medications Home Meds Active Scripts Ondansetron Hcl* (Zofran*) 4 Mg Tablet, 4 MG PO Q6H for NAUSEA AND/OR VOMITING, #30 TAB Prov:ARIK TELLEZ MD 05/30/17 Hydrocodone/Acetaminophen ([place] 5-325 Tablet) 1 Each Tablet, 1 TAB PO Q6H Y for PAIN, #20 TAB Prov:ARIK TELLEZ MD 05/30/17 Hydrocodone/Acetaminophen ([place] 10-325 Tablet) 1 Each Tablet, 1 TAB PO Q6H Y for PAIN, #20 TAB Prov:ELIER OLIVA 02/20/17 Atorvastatin Calcium (Atorvastatin Calcium) 20 Mg Tablet, 20 MG PO HS for 30 Days, TAB Prov:NADEEM GUO 01/08/17 Cyclosporine* (Sandimmune*) 25 Mg Cap, 100 MG PO BID for 30 Days, CAP Prov:NADEEM GUO 01/08/17 Prednisolone* (Millipred*) 5 Mg Tab, 5 MG PO DAILY for 30 Days, TAB Prov:NADEEM GUO 01/08/17 Reported Medications Ibuprofen* (Ibuprofen*) 200 Mg Capsule, 400 MG PO Q6 for PAIN, CAP 01/02/17 Esomeprazole Mag Trihydrate (Nexium) 40 Mg Capsule.dr, 40 MG PO BID, #60 CAP 06/18/16 Gabapentin* (Gabapentin*) 300 Mg Capsule, 300 MG PO TID, #90 CAP 06/08/16 Tamsulosin Hcl* (Tamsulosin Hcl*) 0.4 Mg Cap.er.24h, 0.4 MG PO HS, CAP 03/27/15 Sertraline Hcl* (Sertraline Hcl*) 100 Mg Tablet, 100 MG PO DAILY, TAB 03/27/15 Magnesium Oxide* (Magnesium Oxide*) 400 Mg Tablet, 400 MG PO BID, TAB 03/27/15 Zolpidem Tartrate* (Ambien*) 10 Mg Tablet, 10 MG PO HS Y for SLEEP, TAB 12/18/13 Discontinued Reported Medications Folic Acid* (Folic Acid*) 1 Mg Tablet, 1 MG PO DAILY, TAB 12/18/13 Discontinued Scripts Ondansetron Hcl* (Zofran*) 4 Mg Tablet, 4 MG PO Q6H for NAUSEA AND/OR VOMITING, #30 TAB Prov:LO RIOS PA-C 08/12/16 Allergies Allergies: Coded Allergies: No Known Allergy (Unverified , 07/19/17) PMhx/Soc BPH, gastritis, kidney transplant History of Surgery: Yes (kidney transplant) Anesthesia Reaction: No Hx Neurological Disorder: No Hx Respiratory Disorders: No Hx Cardiac Disorders: Yes (HTN) Hx Psychiatric Problems: No Hx Miscellaneous Medical Probl: No Hx Alcohol Use: No Hx Substance Use: No Hx Tobacco Use: No FmHx Family History: No diabetes Physical Exam Vitals Vital Signs Date Time Temp Pulse Resp B/P Pulse Ox O2 Delivery O2 Flow Rate FiO2 07/19/17 21:40 78 21 135/101 98 Room Air 07/19/17 21:20 135 20 145/108 97 Room Air 07/19/17 16:24 98.0 122 20 126/93 97 Physical Exam GENERAL: Well-developed, well-nourished, grief stricken, afebrile HEENT: Moist mucous membranes, pink conjunctiva, no cervical spine tenderness or step-off deformities, no goiter, no jaundice or icterus, extraocular movements intact without pain. No submandibular induration, and no pharyngeal erythema NEURO: Alert and oriented 3, cranial nerves II through XII intact bilaterally, pupils equal round reactive to light, no focal deficits or facial asymmetry, sensation intact distally Strength 5/5 in upper and lower extremities bilaterally CARDIAC: Regular rate and rhythm, no murmurs rubs or gallops LUNGS: Clear bilaterally no wheezing crackles or stridor ABDOMEN: Soft nontender, no guarding, no rigidity, no rebound, no psoas sign no obturator sign. Normoactive bowel sounds SKIN: Warm and dry to touch, no abrasions, contusions, or hematomas, no lacerations, no ecchymosis, no target lesions, and without ulcers EXTREMITIES: No clubbing cyanosis or edema, calves are bilaterally symmetrical, no Homans sign, no popliteal cord sign. Distal pulses equal and bilateral PSYCH: Anxious, grief stricken Result Diagram: 07/19/17211407/19/172114 Results 24 hrs Laboratory Tests Test 07/19/17 21:15 White Blood Count 9.610^3/ul Red Blood Count 5.0510^6/ul Hemoglobin 14.5g/dl Hematocrit 42.4% Mean Corpuscular Volume 84.0fl Mean Corpuscular Hemoglobin 28.7pg Mean Corpuscular Hemoglobin Concent 34.2g/dl Red Cell Distribution Width 14.2% Platelet Count 66052^3/UL Mean Platelet Volume 10.6fl Neutrophils % 64.0% Lymphocytes % 24.5% Monocytes % 8.8% Eosinophils % 1.1% Basophils % 0.3% Nucleated Red Blood Cells % 0.0/100WBC Neutrophils # 6.210^3/ul Lymphocytes # 2.410^3/ul Monocytes # 0.910^3/ul Eosinophils # 0.110^3/ul Basophils # 0.010^3/ul Nucleated Red Blood Cells # 0.010^3/ul Sodium Level 138mmol/L Potassium Level 4.2mmol/L Chloride Level 100mmol/L Carbon Dioxide Level 26mmol/L Anion Gap 16 Blood Urea Nitrogen 14mg/dl Creatinine 1.03mg/dl Glucose Level 93mg/dl Calcium Level 9.7mg/dl Total Bilirubin 0.3mg/dl Direct Bilirubin 0.00mg/dl Indirect Bilirubin 0.3mg/dl Aspartate Amino Transf (AST/SGOT) 26IU/L Alanine Aminotransferase (ALT/SGPT) 47IU/L Alkaline Phosphatase 99IU/L Troponin I < 0.012ng/ml Total Protein 7.2g/dl Albumin 4.2g/dl Globulin 3.00g/dl Albumin/Globulin Ratio 1.40 Lipase 83U/L Current Medications Medications (Trade) Dose Ordered Sig/Marcelino Route PRN Reason Start Time Stop Time Status Last Admin Dose Admin Lorazepam 0.5 mg 0.5 mg ONCE ONCE IV 12/15/17 21:00 07/19/17 21:01 DC 07/19/17 21:23 Sodium Chloride (NS) 500 ml @ 500 mls/hr Q1H STAT IV 07/19/17 21:00 07/19/17 21:59 DC 07/19/17 21:23 Procedures/MDM IV line was established patient was placed on phototypesetting equipment monitor rhythm strip revealed a sinus tachycardia at 110 bpm with upright P and T waves. Patient was afebrile I administered 500 cc normal saline intravenously and lorazepam 0.5 mg IV 1. EKG performed, read by me revealed a sinus tachycardia 110 bpm, normal axis, narrow QRS complex, no concerning ST elevations or depressions noted. Patient symptoms resolved, he felt much better, and his tachycardia resolved. CBC and electrolytes are normal, liver function tests were normal, troponin was negative. Differential diagnoses considered, included but not limited to acute coronary syndrome, pulmonary embolism, aortic dissection, abdominal aortic aneurysm, sepsis, stroke, meningitis, encephalitis, pneumonia, appendicitis, cholecystitis , bowel obstruction, pyelonephritis, nephrolithiasis, cystitis, as well as metabolic, hematologic, and electrolyte abnormalities. As well as abscess, cellulitis, fractures, and dislocations. Patient feels much better at this time, and vital signs are normal, symptoms have improved. I did give strict instructions to return to the ED if symptoms continue or worsen, patient will otherwise follow-up with primary care physician. Patient understood instructions and agreed to plan. Disclaimer: Inadvertent spelling and grammatical errors are likely due to EHR/ dictation software use and do not reflect on the overall quality of patient care. Also, please note that the electronic time recorded on this note does not necessarily reflect the actual time of the patient encounter. Departure Diagnosis: Primary Impression: Grief reaction Condition: Good JHONATAN MONTERO MD Jul 19, 2017 21:04
[2017-07-19 21:26] LABS: BASOPHILS % 0.3 % (0.0-2.0); EOSINOPHILS # 0.1 10^3/ul (0.0-0.5); EOSINOPHILS % 1.1 % (0.0-7.0); HEMATOCRIT 42.4 % (42.0-52.0); HEMOGLOBIN 14.5 g/dl (14.0-18.0); LYMPHOCYTES # 2.4 10^3/ul (0.8-2.9); LYMPHOCYTES % 24.5 % (15.0-51.0); MEAN CORPUSCULAR HEMOGLOBIN 28.7 pg (29.0-33.0); MEAN CORPUSCULAR HGB CONC 34.2 g/dl (32.0-37.0); MEAN PLATELET VOLUME 10.6 fl (7.4-10.4); MONOCYTE # 0.9 10^3/ul (0.3-0.9); MONOCYTES % 8.8 % (0.0-11.0); NEUTROPHIL # 6.2 10^3/ul (1.6-7.5); PLATELET COUNT 269 10^3/UL (140-415); RED BLOOD COUNT 5.05 10^6/ul (4.70-6.10); RED CELL DISTRIBUTION WIDTH 14.2 % (11.5-14.5); WHITE BLOOD COUNT 9.6 10^3/ul (4.8-10.8)
[2017-07-19 21:43] LABS: ALANINE AMINOTRANSFERASE 47 IU/L (13-69); ALBUMIN 4.2 g/dl (3.3-4.9); ALKALINE PHOSPHATASE 99 IU/L (42-121); ANION GAP 16 (8-16); ASPARTATE AMINO TRANSFERASE 26 IU/L (15-46); BILIRUBIN,INDIRECT 0.3 mg/dl (0-1.1); BILIRUBIN,TOTAL 0.3 mg/dl (0.2-1.3); BLOOD UREA NITROGEN 14 mg/dl (7-20); CALCIUM 9.7 mg/dl (8.4-10.2); CARBON DIOXIDE 26 mmol/L (21-31); CHLORIDE 100 mmol/L (97-110); CREATININE 1.03 mg/dl (0.61-1.24); GLUCOSE 93 mg/dl (70-220); POTASSIUM 4.2 mmol/L (3.5-5.1); SODIUM 138 mmol/L (135-144); TOTAL PROTEIN 7.2 g/dl (6.1-8.1)
[2017-07-19 21:59] LABS: TROPONIN-I < 0.012 ng/ml (0.00-0.12)
[2017-07-19 23:02] VITALS: TEMP 98.2
[2017-07-19] MEDS ORDERED: LORA-441 PO (23:04)
[2017-07-20 00:21] VITALS: BP 129/67; PULSE 69; RESP 18
[2017-07-21] MEDS ORDERED: RANI150T9 PO (23:47)
[2017-07-21] MEDS ORDERED: HYDR-906 PO (23:47)
[2017-07-21] MEDS ORDERED: NAPR-688 PO (23:47)
== END 2017-07-20 01:10 | disposition home or self-care (01) ==
LOC: E/R 16:15
DX: F43.22 Adjustment disorder with anxiety (principal); I10 Essential (primary) hypertension; R40.2142 Coma scale, eyes open, spontaneous, at arrival to emergency department; R40.2252 Coma scale, best verbal response, oriented, at arrival to emergency department; R40.2362 Coma scale, best motor response, obeys commands, at arrival to emergency department
CPT/HCPCS: 36415; 80053; 83690; 84484; 85025; 96374; 99284; J2060; J7040

== ENCOUNTER 2017-07-21 16:04 | Emergency (ER) | END 2017-07-22 01:06 | disposition home or self-care (01) ==

== ENCOUNTER 2017-07-27 14:33 | Emergency (ER) | payer MEDICARE, OTHER ==
[~2017-07-27] VITALS: Ht 172.7 cm; Wt 95.0 kg
[~2017-07-27 14:33] MED LIST changes: -FOLI-49 PO; -HYDR-902 PO; +LORA-441 PO; +NAPR-688 PO; -ONDA4TAB8 PO; -PRED5TAB50 PO; +RANI150T9 PO; -SAN25 PO
[2017-07-27 14:45] VITALS: Ht 172.7 cm; Wt 95.0 kg
[2017-07-27] MEDS ORDERED: KETOROLAC 30 MG INJ IV STA (15:20)
[2017-07-27] MEDS ORDERED: ONDANSETRON 4 MG INJ IV STA ×2 (15:20→18:13)
[2017-07-27] MEDS ORDERED: HYDROmorphONE 2 MG TAB PO ONE (15:30)
[2017-07-27] MEDS ORDERED: ONDANSETRON 4 MG INJ IV SCH (15:36)
[2017-07-27] MEDS ORDERED: KETOROLAC 30 MG INJ IV SCH (15:36)
[2017-07-27] MEDS ORDERED: ONDANSETRON 4 MG INJ ONE (15:42)
[2017-07-27] MEDS ORDERED: KETOROLAC 30 MG INJ ONE (15:42)
[2017-07-27] MEDS ORDERED: HYDROmorphONE 2 MG TAB PO SCH (16:00)
--- NOTE | 2017-07-27 17:52 | RADRPT ---
PROCEDURE: Chest x-ray CLINICAL INDICATION: Chest pain TECHNIQUE: Chest single view COMPARISON: 07/21/2017 FINDINGS: The heart is normal in size. The pulmonary vessels are normal in caliber. The lungs are clear. Th e costophrenic angles are sharp. The visualized bony thorax is unremarkable. IMPRESSION: No acute cardiopulmonary disease. RPTAT: HH .Alexander Pollock MD, Date Time Electronically viewed and signed by .Alexander Pollock MD, on 07/27/2017 16:26 .W/
[2017-07-27] MEDS ORDERED: HYDR-902 PO (18:16)
[2017-07-27] MEDS ORDERED: PRED20TA PO (18:16)
--- NOTE | 2017-07-27 18:21 | ERD ---
ER Documentation Chief Complaint Chief Complaint Chest pain x 9 days on and off, none radiant HPI This is a 41-year-old male who is complaining of left-sided chest pain and left- sided back pain for 9 days straight. He says that the pain constantly there and does not go away ever. He says the pain is worse when he sits up or moves sometimes. He has been to the ER twice already for the same problem with negative workups and sent home. He says he said to see a hospitality housekeeper on August 08. The pain is sharp and worse with the above-mentioned movements. No shortness of breath no radiation of pain no palpitations dizziness syncope no nausea vomiting no cough no abdominal pain ROS All systems reviewed and are negative except as per history of present illness. Medications Home Meds Active Scripts Hydrocodone/Acetaminophen ([place] 10-325 Tablet) 1 Each Tablet, 1 TAB PO Q6H Y for PAIN, #20 TAB Prov:SHIREEN PARK DO 07/27/17 Prednisone* (Prednisone*) 20 Mg Tab, 60 MG PO DAILY for 5 Days, TAB Prov:SHIREEN PARK DO 07/27/17 Ranitidine Hcl* (Zantac*) 150 Mg Tablet, 150 MG PO BID, #30 TAB Prov:CATALINO MORTON DO 07/21/17 Naproxen* (Naproxen*) 500 Mg Tablet, 500 MG PO BID Y for PAIN, #20 TAB Prov:CATALINO MORTON DO 07/21/17 Hydrocodone/Acetaminophen ([place] 5-325 Tablet) 1 Each Tablet, 1 EACH PO Q6, #20 TAB Prov:CATALINO MORTON DO 07/21/17 Lorazepam* (Ativan*) 0.5 Mg Tablet, 0.5 MG PO Q8H Y for ANXIETY, #10 TAB Prov:JHONATAN MONTERO MD 07/19/17 Atorvastatin Calcium (Atorvastatin Calcium) 20 Mg Tablet, 20 MG PO HS for 30 Days, TAB Prov:NADEEM GUO 01/08/17 Reported Medications Ibuprofen* (Ibuprofen*) 200 Mg Capsule, 400 MG PO Q6 for PAIN, CAP 01/02/17 Esomeprazole Mag Trihydrate (Nexium) 40 Mg Capsule.dr, 40 MG PO BID, #60 CAP 06/18/16 Gabapentin* (Gabapentin*) 300 Mg Capsule, 300 MG PO TID, #90 CAP 06/08/16 Tamsulosin Hcl* (Tamsulosin Hcl*) 0.4 Mg Cap.er.24h, 0.4 MG PO HS, CAP 03/27/15 Sertraline Hcl* (Sertraline Hcl*) 100 Mg Tablet, 100 MG PO DAILY, TAB 03/27/15 Magnesium Oxide* (Magnesium Oxide*) 400 Mg Tablet, 400 MG PO BID, TAB 03/27/15 Zolpidem Tartrate* (Ambien*) 10 Mg Tablet, 10 MG PO HS Y for SLEEP, TAB 12/18/13 Discontinued Scripts Ondansetron Hcl* (Zofran*) 4 Mg Tablet, 4 MG PO Q6H for NAUSEA AND/OR VOMITING, #30 TAB Prov:ARIK TELLEZ MD 05/30/17 Hydrocodone/Acetaminophen ([place] 5-325 Tablet) 1 Each Tablet, 1 TAB PO Q6H Y for PAIN, #20 TAB Prov:ARIK TELLEZ MD 05/30/17 Hydrocodone/Acetaminophen ([place] 10-325 Tablet) 1 Each Tablet, 1 TAB PO Q6H Y for PAIN, #20 TAB Prov:ELIER OLIVA 02/20/17 Cyclosporine* (Sandimmune*) 25 Mg Cap, 100 MG PO BID for 30 Days, CAP Prov:NADEEM GUO 01/08/17 Prednisolone* (Millipred*) 5 Mg Tab, 5 MG PO DAILY for 30 Days, TAB Prov:NADEEM GUO 01/08/17 Allergies Allergies: Coded Allergies: No Known Allergy (Unverified , 07/21/17) PMhx/Soc History of Surgery: Yes (kidney transplant) Anesthesia Reaction: No Hx Neurological Disorder: No Hx Respiratory Disorders: No Hx Cardiac Disorders: Yes (HTN) Hx Psychiatric Problems: No Hx Miscellaneous Medical Probl: No Hx Alcohol Use: No Hx Substance Use: No Hx Tobacco Use: No Smoking Status: Never smoker FmHx Family History: No coronary disease Physical Exam Vitals Vital Signs Date Time Temp Pulse Resp B/P Pulse Ox O2 Delivery O2 Flow Rate FiO2 07/27/17 17:06 71 16 109/83 95 Room Air 07/27/17 14:45 98.1 101 20 138/98 99 Physical Exam Const: Well-developed, well-nourished Head: Atraumatic, normocephalic Eyes: Normal Conjunctiva, PERRLA, EOMI, normal sclera, no nystagmus ENT: Normal External Ears, Nose and Mouth, moist mucus membranes. Neck: Full range of motion. No meningismus, no lymphadenopathy. Resp: Clear to auscultation bilaterally, no wheezing, rhonchi, rales, when he moves from a supine position to sitting he has severe pain with grimacing because he says his left chest hurts., There is pain with movement of the left upper extremity is reproducible in the left chest and left back Cardio: Regular rate and rhythm, no murmurs, S1 S2 present Abd: Soft, non tender x 4, non distended. Normal bowel sounds, no guarding or rebound, no pulsitile abdominal masses or bruits Skin: No petechiae or rashes, no ecchymosis , no maculopapular rash Back: No midline or flank tenderness Ext: No cyanosis, or edema, FROM x 4, normal inspection, neurovascularly intact x 4 Neur: Awake and alert, STR 5/5 x 4, sensation intact x 4, no focal findings, cerebellum intact Psych: Normal Mood and Affect Results 24 hrs Laboratory Tests Test 07/27/17 15:00 Troponin I < 0.012ng/ml Current Medications Medications (Trade) Dose Ordered Sig/Marcelino Route PRN Reason Start Time Stop Time Status Last Admin Dose Admin Ondansetron HCl (Zofran Inj) 4 mg ONCE STAT IV 07/27/17 15:20 07/27/17 15:24 DC 07/27/17 15:57 Ketorolac Tromethamine (Toradol) 30 mg ONCE STAT IV 07/27/17 15:20 07/27/17 15:24 DC 07/27/17 15:57 Hydromorphone HCl (Dilaudid) 2 mg ONCE ONCE PO 07/27/17 15:30 07/27/17 15:31 DC 07/27/17 15:57 Ketorolac Tromethamine (Toradol) 30 mg ONCE IV 07/27/17 15:36 07/30/17 17:00 Ondansetron HCl (Zofran Inj) 4 mg ONCE IV 07/27/17 15:36 07/27/17 18:00 DC Hydromorphone HCl (Dilaudid) 2 mg ONCE PO 07/27/17 16:00 07/27/17 18:00 DC Ondansetron HCl (Zofran Inj) 4 mg STK-MED ONCE .ROUTE 07/27/17 15:42 07/27/17 16:01 DC Ketorolac Tromethamine (Toradol) 30 mg STK-MED ONCE .ROUTE 07/27/17 15:42 07/27/17 16:01 DC Methylprednisolone Sodium Succinate (Solu-Medrol) 125 mg ONCE ONCE IV 07/27/17 18:30 07/27/17 18:31 UNV Morphine Sulfate (morphine) 8 mg ONCE ONCE IV 07/27/17 18:30 07/27/17 18:31 UNV Ondansetron HCl (Zofran Inj) 4 mg ONCE STAT IV 07/27/17 18:13 07/27/17 18:14 UNV Procedures/MDM EKG: Rate/Rhythm: Normal Sinus Rhythm,NL intervals QRS, ST, QT: NORMAL CT, QRS, QT] Impression: NORMAL EKG PROCEDURE: Chest x-ray CLINICAL INDICATION: Chest pain TECHNIQUE: Chest single view COMPARISON: 07/21/2017 FINDINGS: The heart is normal in size. The pulmonary vessels are normal in caliber. The lungs are clear. The costophrenic angles are sharp. The visualized bony thorax is unremarkable. IMPRESSION: No acute cardiopulmonary disease. RPTAT: HH .Alexander Pollock MD, Date Time Electronically viewed and signed by .Alexander Pollock MD, on 07/27/2017 16:26 .W/ CC: SHIREEN PARK DO Patient is been given some pain medicine and says that his pain is still there but better. He is able to move his arm and sit up without pain. The patient has pinpoint pain on repeat exam at the left costovertebral rib margin around ribs #6. I feel the patient is a musculoskeletal rib problem. Troponin is negative chest x-ray is unremarkable. Discharge home with some prednisone and [place] Departure Diagnosis: Primary Impression: Chest wall pain Condition: Stable Patient Instructions: Chest Wall Strain SHIREEN PARK DO Jul 27, 2017 18:21
[2017-07-27] MEDS ORDERED: METHYLPREDNISOLONE 125 MG INJ IV ONE (18:30)
[2017-07-27] MEDS ORDERED: morphine 10 MG INJ IV ONE (18:30)
[2017-07-27 19:47] VITALS: BP 131/95; PULSE 85; RESP 16; TEMP 98.7
== END 2017-07-27 19:50 | disposition home or self-care (01) ==
LOC: E/R 14:33
DX: R07.89 Other chest pain (principal); I10 Essential (primary) hypertension
CPT/HCPCS: 36415; 71010; 84484; 96374; 96375; 96376; 99285; J1170; J1885; J2270; J2405; J2930; 93005

== ENCOUNTER 2017-08-08 23:53 | Emergency (ER) | END 2017-08-09 07:00 | disposition home or self-care (01) ==

== ENCOUNTER 2017-08-30 16:38 | Emergency (ER) | END 2017-08-30 21:11 | disposition home or self-care (01) ==

== ENCOUNTER 2017-09-06 12:00 | Inpatient (IN) | END 2017-09-09 19:20 | disposition home or self-care (01) | DRG 287 ==

== ENCOUNTER 2017-09-18 19:28 | Emergency (ER) | END 2017-09-19 00:10 | disposition home or self-care (01) ==

== ENCOUNTER 2017-09-30 14:41 | Emergency (ER) | END 2017-09-30 20:39 | disposition home or self-care (01) ==

== ENCOUNTER 2017-10-07 16:35 | Emergency (ER) | END 2017-10-07 23:28 | disposition home or self-care (01) ==

== ENCOUNTER 2017-10-12 23:14 | Emergency (ER) | END 2017-10-13 15:06 | disposition designated cancer center or children's hospital (05) ==

== ENCOUNTER 2017-10-25 20:01 | Emergency (ER) | END 2017-10-26 01:34 | disposition home or self-care (01) ==

== ENCOUNTER 2017-11-09 00:46 | Observation (INO) | END 2017-11-12 16:20 | disposition home or self-care (01) ==

== ENCOUNTER 2017-12-13 16:30 | Emergency (ER) | END 2017-12-13 19:06 | disposition home or self-care (01) ==

== ENCOUNTER 2017-12-29 03:41 | Emergency (ER) | END 2017-12-29 06:55 | disposition home or self-care (01) ==

== ENCOUNTER 2018-02-06 23:41 | Emergency (ER) | END 2018-02-07 05:06 | disposition home or self-care (01) ==

== ENCOUNTER 2018-03-14 15:49 | Emergency (ER) | END 2018-03-14 18:56 | disposition home or self-care (01) ==

== ENCOUNTER 2018-03-23 01:33 | Observation (INO) | END 2018-03-26 16:18 | disposition home or self-care (01) ==

== ENCOUNTER 2018-04-06 17:20 | Inpatient (IN) | END 2018-04-09 19:00 | disposition home or self-care (01) | DRG 313 ==

== ENCOUNTER 2018-04-12 18:08 | Emergency (ER) | END 2018-04-12 19:04 | disposition home or self-care (01) ==

== ENCOUNTER 2018-07-16 16:10 | Emergency (ER) | END 2018-07-16 17:25 | disposition home or self-care (01) ==

== ENCOUNTER 2018-08-17 16:09 | Emergency (ER) | payer MEDICARE, OTHER ==
[~2018-08-17] VITALS: Wt 75.5 kg
[~2018-08-17 16:09] MED LIST changes: +ALBU18HF INHALATION; +AMLO5TAB4 PO; +ATOR10TA65 PO; -ATOR20TA65 PO; +BENZ-6 PO; +CARV6.2579 PO; +CHOL100062 PO; -ESOM40CA PO; +GABA100C14 PO; -GABA300C16 PO; +HYDR-4011 PO; -HYDR-906 PO; -IBUP200C PO; +ISOS10TA2 PO; +LISI10TA2 PO; -LORA-441 PO; +MECL-77 PO; -NAPR-688 PO; +ONDA4TAB14 PO; +PRED5TAB PO; -RANI150T9 PO; +RANO500T2 PO; +SAN25 PO; -ZOLP10TA PO; +ZOLP5TAB PO
--- NOTE | 2018-08-17 20:49 | ERD ---
ER Documentation Chief Complaint Chief Complaint CP x 1 week; past 3 days pt having worse CP - denies heart problem HPI This is a 42-year-old man with a history of renal transplant using prednisone complaining of sharp nonexertional nonradiating chest pain constant times 7 days. He has had similar episodes in the past and denies history of IN or stenting. Patient denies recent weight loss, no fevers or chills, no cough, no headache or blurry vision. ROS All systems reviewed and are negative except as per history of present illness. Medications Home Meds Active Scripts Ondansetron (Ondansetron Odt) 4 Mg Tab.rapdis, 4 MG PO Q6H PRN for NAUSEA AND/OR VOMITING, #20 TAB Prov:DEVORAH URRUTIA MD 07/19/18 Benzonatate* (Tessalon Perle*) 100 Mg Capsule, 100 MG PO Q8H PRN for COUGH, #20 CAP Prov:DION HASTINGS PA-C 07/16/18 Albuterol Sulfate* (Ventolin HFA*) 18 Gm Hfa.aer.ad, 2 PUFF INHALATION Q4H, #1 INHALER Prov:DION HASTINGS PA-C 07/16/18 Isosorbide Dinitrate* (Isordil*) 10 Mg Tablet, 10 MG PO TID for 30 Days, TAB Prov:NADEEM GUO 04/09/18 Ranolazine* (Ranexa*) 500 Mg Tab.sr.12h, 500 MG PO Q12 for 30 Days, TAB Prov:NADEEM GUO 04/09/18 Amlodipine Besylate* (Norvasc*) 5 Mg Tablet, 5 MG PO DAILY for 30 Days, TAB Prov:NADEEM GUO 04/09/18 Carvedilol* (Carvedilol*) 6.25 Mg Tablet, 6.25 MG PO BID for 30 Days, TAB Prov:NADEEM GUO 04/09/18 Atorvastatin (Atorvastatin) 10 Mg Tablet, 10 MG PO DAILY@21 for 30 Days, TAB Prov:NADEEM GUO 04/09/18 Hydrocodone/Acetaminophen ([place] 5-325 Tablet) 1 Each Tablet, 1 EACH PO Q6H PRN for NEEDED, #30 TAB Prov:NADEEM GUO 04/09/18 Lisinopril* (Lisinopril*) 10 Mg Tablet, 10 MG PO DAILY, #30 TAB Prov:NADEEM GUO 04/09/18 Reported Medications Cholecalciferol* (Vitamin D3*) 1,000 Unit Tablet, 1000 UNIT PO DAILY, TAB 04/04/18 Magnesium Oxide* (Magnesium Oxide*) 400 Mg Tablet, 400 MG PO DAILY, TAB 04/04/18 Zolpidem Tartrate* (Ambien*) 5 Mg Tablet, 5 MG PO QHS PRN for INSOMNIA, #30 TAB 11/08/17 Tamsulosin Hcl* (Tamsulosin Hcl*) 0.4 Mg Cap.er.24h, 0.4 MG PO HS, CAP 11/08/17 Sertraline Hcl* (Sertraline Hcl*) 100 Mg Tablet, 100 MG PO DAILY, #30 TAB 11/08/17 Prednisone* (Prednisone*) 5 Mg Tab, 5 MG PO DAILY, TAB 11/08/17 Meclizine Hcl* (Meclizine Hcl*) 25 Mg Tablet, 25 MG PO Q8H PRN for DIZZINESS, TAB 11/08/17 Gabapentin* (Gabapentin*) 100 Mg Capsule, 100 MG PO DAILY, #90 CAP 11/08/17 Cyclosporine* (Sandimmune*) 25 Mg Cap, 100 MG PO QHS, CAP 11/08/17 Cyclosporine* (Sandimmune*) 25 Mg Cap, 125 MG PO QAM, CAP 11/08/17 Allergies Allergies: Coded Allergies: No Known Allergy (Unverified , 07/16/18) PMhx/Soc History of renal transplant, depressed cardiac systolic function and EF of 45%, dyslipidemia, chronic back pain, anxiety, BPH History of Surgery: Yes (KIDNEY TRANSPLANT; HERNIA REPAIR; RIGHT SHOULDER TENDON SURGERY; HIP ) Anesthesia Reaction: No Hx Neurological Disorder: No Hx Respiratory Disorders: No Hx Cardiac Disorders: Yes (HTN) Hx Psychiatric Problems: No Hx Miscellaneous Medical Probl: No Hx Alcohol Use: No Hx Substance Use: No Hx Tobacco Use: No Physical Exam Vitals Vital Signs Date Temp Pulse Resp B/P (MAP) Pulse Ox O2 O2 Flow FiO2 Time Delivery Rate 08/17/18 97.5 87 20 110/82 95 16:14 (91) Physical Exam GENERAL: Well-developed, well-nourished, well-hydrated, in no apparent distress, looks nontoxic in appearance HEENT: Moist mucous membranes, mild cushingoid, pink conjunctiva, no cervical s pine tenderness or step-off deformities, no goiter, no jaundice or icterus, extraocular movements intact without pain. No submandibular induration, and no pharyngeal erythema NEURO: Alert and oriented 3, cranial nerves II through XII intact bilaterally, pupils equal round reactive to light, no focal deficits or facial asymmetry, sensation intact distally Strength 5/5 in upper and lower extremities bilaterally CARDIAC: Regular rate and rhythm, no murmurs rubs or gallops LUNGS: Clear bilaterally no wheezing crackles or stridor ABDOMEN: Soft nontender, no guarding, no rigidity, no rebound, no psoas sign no obturator sign. Normoactive bowel sounds SKIN: Warm and dry to touch, no abrasions, contusions, or hematomas, no lacerations, no ecchymosis, no target lesions, and without ulcers EXTREMITIES: No clubbing cyanosis or edema, calves are bilaterally symmetrical, no Homans sign, no popliteal cord sign. Distal pulses equal and bilateral PSYCH: Normal affect without agitation or irritability Result Diagram: 08/17/18205108/[id number]/182051 Results 24 hrs Laboratory Tests Test 08/17/18 20:52 White Blood Count 10.0 10^3/ul Red Blood Count 4.70 10^6/ul Hemoglobin 13.8 g/dl Hematocrit 41.6 % Mean Corpuscular Volume 88.5 fl Mean Corpuscular Hemoglobin 29.4 pg Mean Corpuscular Hemoglobin Concent 33.2 g/dl Red Cell Distribution Width 12.6 % Platelet Count 299 10^3/UL Mean Platelet Volume 11.1 fl Immature Granulocytes % 0.700 % Neutrophils % 75.7 % Lymphocytes % 16.3 % Monocytes % 6.5 % Eosinophils % 0.5 % Basophils % 0.3 % Nucleated Red Blood Cells % 0.0 /100WBC Immature Granulocytes # 0.070 10^3/ul Neutrophils # 7.6 10^3/ul Lymphocytes # 1.6 10^3/ul Monocytes # 0.7 10^3/ul Eosinophils # 0.1 10^3/ul Basophils # 0.0 10^3/ul Nucleated Red Blood Cells # 0.0 10^3/ul Sodium Level 136 mmol/L Potassium Level 3.9 mmol/L Chloride Level 101 mmol/L Carbon Dioxide Level 25 mmol/L Anion Gap 10 Blood Urea Nitrogen 19 mg/dl Creatinine 0.99 mg/dl Est Glomerular Filtrat Rate mL/min > 60 mL/min Glucose Level 113 mg/dl Calcium Level 10.2 mg/dl Total Bilirubin 0.4 mg/dl Direct Bilirubin 0.00 mg/dl Indirect Bilirubin 0.4 mg/dl Aspartate Amino Transf (AST/SGOT) 28 IU/L Alanine Aminotransferase (ALT/SGPT) 25 IU/L Alkaline Phosphatase 123 IU/L Troponin I Pending Total Protein 8.2 g/dl Albumin 4.7 g/dl Globulin 3.50 g/dl Albumin/Globulin Ratio 1.34 Lipase 60 U/L Current Medications Medications Dose Sig/Marcelino Start Time Status Last (Trade) Ordered Route PRN Stop Time Admin Dose Reason Admin Ondansetron 4 mg ONCE STAT 08/17/18 DC 08/17/18 HCl (Zofran IV 21:06 21:29 Inj) 08/17/18 21:07 Ketorolac 15 mg ONCE STAT 08/17/18 DC 08/17/18 Tromethamine IV 21:06 21:29 (Toradol) 08/17/18 21:07 Procedures/MDM IV line was established patient was placed on monitor tech rhythm strip revealed a sinus rhythm at about 80 bpm with upright P and T waves. Patient was afebrile EKG performed, read by me revealed a normal sinus rhythm at 78 bpm, normal axis, narrow QRS complex, no concerning ST elevations or depressions noted, LVH in lead I Chest X-ray 1V Interpreted by me: Soft Tissue: No acute abnormalities Bones: No acute abnormalities Mediastinum/Cardiac Silhouette/Lungs: No acute abnormalities CBC and electrolytes were normal, liver function tests were normal, troponin was negative I administered Toradol 15 mg IV x1 and Zofran 4 mg IV x1 Differential diagnoses considered, included but not limited to acute coronary syndrome, pulmonary embolism, aortic dissection, abdominal aortic aneurysm, sepsis, stroke, meningitis, encephalitis, pneumonia, appendicitis, cholecystitis, bowel obstruction, pyelonephritis, nephrolithiasis, cystitis, as well as metabolic, hematologic, and electrolyte abnormalities. As well as abscess, cellulitis, fractures, and dislocations. Patient feels much better at this time, and vital signs are normal, symptoms have improved. I did give strict instructions to return to the ED if symptoms continue or worsen, patient will otherwise follow-up with primary care physician. Patient understood instructions and agreed to plan. Disclaimer: Inadvertent spelling and grammatical errors are likely due to EHR/dictation software use and do not reflect on the overall quality of patient care. Also, please note that the electronic time recorded on this note does not necessarily reflect the actual time of the patient encounter. Departure Diagnosis: Primary Impression: Chest pain Chest pain type: unspecified Qualified Codes: R07.9 - Chest pain, unspecified Additional Impressions: Transplant recipient Hypertension Hypertension type: essential hypertension Qualified Codes: I10 - Essential (primary) hypertension Condition: Good JHONATAN MONTERO MD Aug 17, 2018 20:49
[2018-08-17] MEDS ORDERED: KETOROLAC 15 MG INJ IV STA (21:06)
[2018-08-17] MEDS ORDERED: ONDANSETRON 4 MG INJ IV STA (21:06)
[2018-08-17 22:50] VITALS: BP 121/84; PULSE 67; RESP 20
[2018-08-17] MEDS ORDERED: OXYCODONE/ACETAMINOPHEN (5/325) TAB PO ONE (23:00)
== END 2018-08-17 23:22 | disposition home or self-care (01) ==
LOC: E/R 16:09
DX: R07.9 Chest pain, unspecified (principal); R40.2142 Coma scale, eyes open, spontaneous, at arrival to emergency department; R40.2362 Coma scale, best motor response, obeys commands, at arrival to emergency department; R40.2252 Coma scale, best verbal response, oriented, at arrival to emergency department; I10 Essential (primary) hypertension; Z94.0 Kidney transplant status
CPT/HCPCS: 36415; 71045; 80053; 83690; 84484; 85025; 93005; 96374; 96375; 99284; J1885; J2405

== ENCOUNTER 2018-08-27 15:36 | Emergency (ER) | payer MEDICARE, OTHER ==
[~2018-08-27] VITALS: Ht 167.6 cm; Wt 75.3 kg
[2018-08-27 15:54] VITALS: Ht 167.6 cm; Wt 75.3 kg
--- NOTE | 2018-08-27 21:04 | ERD ---
ER Documentation Chief Complaint Chief Complaint CP RADIATING TO LEFT ARM. EKG DONE IN TRIAGE HPI This is a 42-year-old man here with complaints of chest pain, he was seen and evaluated here recently for the same and states he has these chest pains on a regular basis. He has a significant cardiac history and multiple medical conditions and is also complaining of left inner thigh pain and discomfort. He denies trauma, no shortness of breath, no fevers or chills, no vomiting or diarrhea. Patient is requesting opioid analgesics and states NSAIDs do not work for him. ROS All systems reviewed and are negative except as per history of present illness. Medications Home Meds Reported Medications Ranolazine* (Ranexa*) 1,000 Mg Tab.sr.12h, 1000 MG PO Q12, TAB 08/27/18 Lisinopril* (Lisinopril*) 10 Mg Tablet, 10 MG PO DAILY, #30 TAB 08/27/18 Isosorbide Dinitrate* (Isosorbide Dinitrate*) 10 Mg Tablet, 10 MG PO TID, TAB 08/27/18 Carvedilol* (Carvedilol*) 6.25 Mg Tablet, 6.25 MG PO BID, #60 TAB 08/27/18 Atorvastatin Calcium (Atorvastatin Calcium) 10 Mg Tablet, 10 MG PO QHS, #30 TAB 08/27/18 Amlodipine Besylate* (Norvasc*) 5 Mg Tablet, 5 MG PO BID, TAB 08/27/18 Zolpidem Tartrate* (Zolpidem Tartrate*) 5 Mg Tablet, 5 MG PO QHS PRN for INSOMNIA, #30 TAB 08/27/18 Tamsulosin Hcl* (Tamsulosin Hcl*) 0.4 Mg Cap.er.24h, 0.4 MG PO HS, CAP 08/27/18 Sertraline Hcl* (Sertraline Hcl*) 100 Mg Tablet, 100 MG PO DAILY, #30 TAB 08/27/18 Prednisone* (Prednisone*) 5 Mg Tab, 5 MG PO DAILY, TAB 08/27/18 Meclizine Hcl* (Meclizine Hcl*) 25 Mg Tablet, 25 MG PO NEEDED PRN for DIZZINESS, TAB 08/27/18 Magnesium Oxide* (Magnesium Oxide*) 400 Mg Tablet, 800 MG PO BID, TAB 08/27/18 Gabapentin* (Gabapentin*) 100 Mg Capsule, 100 MG PO DAILY, #90 CAP 08/27/18 Cyclosporine* (Neoral*) 100 Mg Cap, 100 MG PO DAILY, CAP 08/27/18 Cyclosporine* (Neoral*) 25 Mg Cap, 125 MG PO QHS, CAP 08/27/18 Discontinued Reported Medications Cholecalciferol* (Vitamin D3*) 1,000 Unit Tablet, 1000 UNIT PO DAILY, TAB 04/04/18 Magnesium Oxide* (Magnesium Oxide*) 400 Mg Tablet, 400 MG PO DAILY, TAB 04/04/18 Zolpidem Tartrate* (Ambien*) 5 Mg Tablet, 5 MG PO QHS PRN for INSOMNIA, #30 TAB 11/08/17 Tamsulosin Hcl* (Tamsulosin Hcl*) 0.4 Mg Cap.er.24h, 0.4 MG PO HS, CAP 11/08/17 Sertraline Hcl* (Sertraline Hcl*) 100 Mg Tablet, 100 MG PO DAILY, #30 TAB 11/08/17 Prednisone* (Prednisone*) 5 Mg Tab, 5 MG PO DAILY, TAB 11/08/17 Meclizine Hcl* (Meclizine Hcl*) 25 Mg Tablet, 25 MG PO Q8H PRN for DIZZINESS, TAB 11/08/17 Gabapentin* (Gabapentin*) 100 Mg Capsule, 100 MG PO DAILY, #90 CAP 11/08/17 Cyclosporine* (Sandimmune*) 25 Mg Cap, 100 MG PO QHS, CAP 11/08/17 Cyclosporine* (Sandimmune*) 25 Mg Cap, 125 MG PO QAM, CAP 11/08/17 Discontinued Scripts Ondansetron (Ondansetron Odt) 4 Mg Tab.rapdis, 4 MG PO Q6H PRN for NAUSEA AND/OR VOMITING, #20 TAB Prov:DEVORAH URRUTIA MD 07/19/18 Benzonatate* (Tessalon Perle*) 100 Mg Capsule, 100 MG PO Q8H PRN for COUGH, #20 CAP Prov:DION HASTINGS PA-C 07/16/18 Albuterol Sulfate* (Ventolin HFA*) 18 Gm Hfa.aer.ad, 2 PUFF INHALATION Q4H, #1 INHALER Prov:DION HASTINGS PA-C 07/16/18 Isosorbide Dinitrate* (Isordil*) 10 Mg Tablet, 10 MG PO TID for 30 Days, TAB Prov:NADEEM GUO 04/09/18 Ranolazine* (Ranexa*) 500 Mg Tab.sr.12h, 500 MG PO Q12 for 30 Days, TAB Prov:FARA GUOA 04/09/18 Amlodipine Besylate* (Norvasc*) 5 Mg Tablet, 5 MG PO DAILY for 30 Days, TAB Prov:BRANTNADEEM 04/09/18 Carvedilol* (Carvedilol*) 6.25 Mg Tablet, 6.25 MG PO BID for 30 Days, TAB Prov:BRANTNADEEM 04/09/18 Atorvastatin (Atorvastatin) 10 Mg Tablet, 10 MG PO DAILY@21 for 30 Days, TAB Prov:BRANTNADEEM 04/09/18 Hydrocodone/Acetaminophen ([place] 5-325 Tablet) 1 Each Tablet, 1 EACH PO Q6H PRN for NEEDED, #30 TAB Prov:BRANTNADEEM 04/09/18 Lisinopril* (Lisinopril*) 10 Mg Tablet, 10 MG PO DAILY, #30 TAB Prov:FARA GUOA 04/09/18 Allergies Allergies: Coded Allergies: No Known Allergy (Unverified , 08/27/18) PMhx/Soc History of renal transplant, depressed cardiac systolic function and EF of 45%, dyslipidemia, chronic back pain, anxiety, BPH History of Surgery: Yes (KIDNEY TRANSPLANT; HERNIA REPAIR; RIGHT SHOULDER TENDON SURGERY; HIP ) History of Surgery: Yes (KIDNEY TRANSPLANT; HERNIA REPAIR; RIGHT SHOULDER TENDON SURGERY; HIP ) Anesthesia Reaction: No Hx Neurological Disorder: No Hx Respiratory Disorders: No Hx Cardiac Disorders: Yes (HTN) Hx Psychiatric Problems: No Hx Miscellaneous Medical Probl: No Hx Alcohol Use: No Hx Substance Use: No Hx Tobacco Use: No Smoking Status: Never smoker FmHx Family History: No diabetes Physical Exam Vitals Vital Signs Date Temp Pulse Resp B/P (MAP) Pulse Ox O2 O2 Flow FiO2 Time Delivery Rate 08/27/18 98.1 103 16 118/82 99 15:54 (94) Physical Exam GENERAL: Well-developed, well-nourished, well-hydrated, in no apparent distress, looks nontoxic in appearance HEENT: Moist mucous membranes, pink conjunctiva, no cervical spine tenderness or step-off deformities, no goiter, no jaundice or icterus, extraocular movements intact without pain. No submandibular induration, and no pharyngeal erythema NEURO: Alert and oriented 3, cranial nerves II through XII intact bilaterally, pupils equal round reactive to light, no focal deficits or facial asymmetry, sensation intact distally Strength 5/5 in upper and lower extremities bilaterally CARDIAC: Regular rate and rhythm, no murmurs rubs or gallops LUNGS: Clear bilaterally no wheezing crackles or stridor ABDOMEN: Soft nontender, no guarding, no rigidity, no rebound, no psoas sign no obturator sign. Normoactive bowel sounds SKIN: Warm and dry to touch, no abrasions, contusions, or hematomas, no lacerations, no ecchymosis, no target lesions, and without ulcers EXTREMITIES: No clubbing cyanosis or edema, calves are bilaterally symmetrical, no Homans sign, no popliteal cord sign. Distal pulses equal and bilateral PSYCH: Normal affect without agitation or irritability Results 24 hrs Laboratory Tests Test 08/27/18 21:22 Troponin I < 0.012 ng/ml Current Medications Medications Dose Sig/Marcelino Start Time Status Last (Trade) Ordered Route PRN Stop Time Admin Dose Reason Admin Oxycodone/ 1 tab ONCE ONCE 08/27/18 DC Acetaminophen PO 22:30 (Percocet 08/27/18 22:31 (5/ 325)) Procedures/MDM IV line was established patient was placed on security monitor rhythm strip revealed a sinus rhythm at about 80 bpm with upright P and T waves. Patient was afebrile Troponin negative EKG performed, read by me revealed a normal sinus rhythm at 77 bpm, normal axis, narrow QRS complex, no concerning ST elevations or depressions noted Doppler ultrasound of left lower extremity was performed, negative for DVT. I suspect this patient is drug-seeking and has chronic pain syndrome as well as opioid dependence. I administered 1 dose of Percocet prior to discharge but refused to prescribe opioids for him. I do not suspect today's chest pain is due to a serious underlying cardiac pathology Differential diagnoses considered, included but not limited to acute coronary syndrome, pulmonary embolism, aortic dissection, abdominal aortic aneurysm, sepsis, stroke, meningitis, encephalitis, pneumonia, appendicitis, cholecystitis, bowel obstruction, pyelonephritis, nephrolithiasis, cystitis, as well as metabolic, hematologic, and electrolyte abnormalities. As well as abscess, cellulitis, fractures, and dislocations. Patient feels much better at this time, and vital signs are normal, symptoms have improved. I did give strict instructions to return to the ED if symptoms continue or worsen, patient will otherwise follow-up with primary care physician. Patient understood instructions and agreed to plan. Disclaimer: Inadvertent spelling and grammatical errors are likely due to EHR/dictation software use and do not reflect on the overall quality of patient care. Also, please note that the electronic time recorded on this note does not necessarily reflect the actual time of the patient encounter. Departure Diagnosis: Primary Impression: Chest pain Chest pain type: unspecified Qualified Codes: R07.9 - Chest pain, unspecified Additional Impression: Drug-seeking behavior Condition: JHONATAN Oneill MD Aug 27, 2018 21:04
[2018-08-27] MEDS ORDERED: CYCL100C20 PO (21:18)
[2018-08-27] MEDS ORDERED: CYCL25CA PO (21:18)
[2018-08-27] MEDS ORDERED: GABA100C14 PO (21:20)
[2018-08-27] MEDS ORDERED: MAGN400T28 PO (21:20)
[2018-08-27] MEDS ORDERED: PRED5TAB PO (21:21)
[2018-08-27] MEDS ORDERED: SERT-165 PO (21:21)
[2018-08-27] MEDS ORDERED: MECL-77 PO (21:21)
[2018-08-27] MEDS ORDERED: ZOLP5TAB7 PO (21:22)
[2018-08-27] MEDS ORDERED: TAMS0.4C2 PO (21:22)
[2018-08-27] MEDS ORDERED: AMLO5TAB4 PO (21:23)
[2018-08-27] MEDS ORDERED: ATOR10TA65 PO (21:23)
[2018-08-27] MEDS ORDERED: CARV6.2579 PO (21:24)
[2018-08-27] MEDS ORDERED: ISOS10TA2 PO (21:24)
[2018-08-27] MEDS ORDERED: LISI10TA2 PO (21:24)
[2018-08-27] MEDS ORDERED: RANO10002 PO (21:25)
[2018-08-27] MEDS ORDERED: OXYCODONE/ACETAMINOPHEN (5/325) TAB PO ONE (22:30)
[2018-08-27 22:43] VITALS: BP 119/78; PULSE 68; RESP 15
== END 2018-08-27 22:43 | disposition home or self-care (01) ==
LOC: E/R 15:36
DX: R07.9 Chest pain, unspecified (principal); I10 Essential (primary) hypertension; Z72.89 Other problems related to lifestyle
CPT/HCPCS: 84484; 93005; 93971

== ENCOUNTER 2018-08-29 17:14 | Emergency (ER) | payer MEDICARE, OTHER ==
[~2018-08-29] VITALS: Ht 167.6 cm; Wt 75.3 kg
[~2018-08-29 17:14] MED LIST changes: -ALBU18HF INHALATION; -BENZ-6 PO; -CHOL100062 PO; +CYCL100C20 PO; +CYCL25CA PO; -HYDR-4011 PO; -ONDA4TAB14 PO; +RANO10002 PO; -RANO500T2 PO; -SAN25 PO; -ZOLP5TAB PO; +ZOLP5TAB7 PO
[2018-08-29 17:23] VITALS: Ht 167.6 cm; Wt 75.3 kg
--- NOTE | 2018-08-29 17:53 | ERD ---
ER Documentation Chief Complaint Chief Complaint BIBA CP/PRESSURE X4DAYS NON-PROVOKED, SOB X2DAYS, L ARM/LEG PAIN SHARP HPI During the patient's encounter translation services were utilized Language: [South Korean] Source: [in person] 42-year-old male with a history of renal transplant on immunosuppressants who presents the emergency room with chest pain. Patient arrives via EMS. The patient describes constant chest pain that is substernal occasionally radiating to the left arm. He denies pleuritic pain, shortness of breath, dyspnea on exertion. No chest pressure. The patient states that he was here several days ago for similar and discharged from the emergency room. Pain is 6 out of 10 currently. Aspirin and nitro given prior to arrival Of note reviewing the patient's electronic medical record this is now his third visit in August for chest pain related issues. In 2018 he had greater than 8 visits for similar as well. ROS All systems reviewed and are negative except as per history of present illness. Medications Home Meds Reported Medications Ranolazine* (Ranexa*) 1,000 Mg Tab.sr.12h, 1000 MG PO Q12, TAB 08/27/18 Lisinopril* (Lisinopril*) 10 Mg Tablet, 10 MG PO DAILY, #30 TAB 08/27/18 Isosorbide Dinitrate* (Isosorbide Dinitrate*) 10 Mg Tablet, 10 MG PO TID, TAB 08/27/18 Carvedilol* (Carvedilol*) 6.25 Mg Tablet, 6.25 MG PO BID, #60 TAB 08/27/18 Atorvastatin Calcium (Atorvastatin Calcium) 10 Mg Tablet, 10 MG PO QHS, #30 TAB 08/27/18 Amlodipine Besylate* (Norvasc*) 5 Mg Tablet, 5 MG PO BID, TAB 08/27/18 Zolpidem Tartrate* (Zolpidem Tartrate*) 5 Mg Tablet, 5 MG PO QHS PRN for INSOMNIA, #30 TAB 08/27/18 Tamsulosin Hcl* (Tamsulosin Hcl*) 0.4 Mg Cap.er.24h, 0.4 MG PO HS, CAP 08/27/18 Sertraline Hcl* (Sertraline Hcl*) 100 Mg Tablet, 100 MG PO DAILY, #30 TAB 08/27/18 Prednisone* (Prednisone*) 5 Mg Tab, 5 MG PO DAILY, TAB 08/27/18 Meclizine Hcl* (Meclizine Hcl*) 25 Mg Tablet, 25 MG PO NEEDED PRN for DIZZINESS, TAB 08/27/18 Magnesium Oxide* (Magnesium Oxide*) 400 Mg Tablet, 800 MG PO BID, TAB 08/27/18 Gabapentin* (Gabapentin*) 100 Mg Capsule, 100 MG PO DAILY, #90 CAP 08/27/18 Cyclosporine* (Neoral*) 100 Mg Cap, 100 MG PO DAILY, CAP 08/27/18 Cyclosporine* (Neoral*) 25 Mg Cap, 125 MG PO QHS, CAP 08/27/18 Discontinued Reported Medications Cholecalciferol* (Vitamin D3*) 1,000 Unit Tablet, 1000 UNIT PO DAILY, TAB 04/04/18 Magnesium Oxide* (Magnesium Oxide*) 400 Mg Tablet, 400 MG PO DAILY, TAB 04/04/18 Zolpidem Tartrate* (Ambien*) 5 Mg Tablet, 5 MG PO QHS PRN for INSOMNIA, #30 TAB 11/08/17 Tamsulosin Hcl* (Tamsulosin Hcl*) 0.4 Mg Cap.er.24h, 0.4 MG PO HS, CAP 11/08/17 Sertraline Hcl* (Sertraline Hcl*) 100 Mg Tablet, 100 MG PO DAILY, #30 TAB 11/08/17 Prednisone* (Prednisone*) 5 Mg Tab, 5 MG PO DAILY, TAB 11/08/17 Meclizine Hcl* (Meclizine Hcl*) 25 Mg Tablet, 25 MG PO Q8H PRN for DIZZINESS, TAB 11/08/17 Gabapentin* (Gabapentin*) 100 Mg Capsule, 100 MG PO DAILY, #90 CAP 11/08/17 Cyclosporine* (Sandimmune*) 25 Mg Cap, 100 MG PO QHS, CAP 11/08/17 Cyclosporine* (Sandimmune*) 25 Mg Cap, 125 MG PO QAM, CAP 11/08/17 Discontinued Scripts Ondansetron (Ondansetron Odt) 4 Mg Tab.rapdis, 4 MG PO Q6H PRN for NAUSEA AND/OR VOMITING, #20 TAB Prov:DEVORAH URRUTIA MD 07/19/18 Benzonatate* (Tessalon Perle*) 100 Mg Capsule, 100 MG PO Q8H PRN for COUGH, #20 CAP Prov:DION HASTINGS PA-C 07/16/18 Albuterol Sulfate* (Ventolin HFA*) 18 Gm Hfa.aer.ad, 2 PUFF INHALATION Q4H, #1 I NHALER Prov:DION HASTINGS PA-C 07/16/18 Isosorbide Dinitrate* (Isordil*) 10 Mg Tablet, 10 MG PO TID for 30 Days, TAB Prov:NADEEM GUO 04/09/18 Ranolazine* (Ranexa*) 500 Mg Tab.sr.12h, 500 MG PO Q12 for 30 Days, TAB Prov:NADEEM GUO 04/09/18 Amlodipine Besylate* (Norvasc*) 5 Mg Tablet, 5 MG PO DAILY for 30 Days, TAB Prov:NADEEM GUO 04/09/18 Carvedilol* (Carvedilol*) 6.25 Mg Tablet, 6.25 MG PO BID for 30 Days, TAB Prov:NADEEM GUO 04/09/18 Atorvastatin (Atorvastatin) 10 Mg Tablet, 10 MG PO DAILY@21 for 30 Days, TAB Prov:NADEEM GUO 04/09/18 Hydrocodone/Acetaminophen ([place] 5-325 Tablet) 1 Each Tablet, 1 EACH PO Q6H PRN for NEEDED, #30 TAB Prov:NADEEM GUO 04/09/18 Lisinopril* (Lisinopril*) 10 Mg Tablet, 10 MG PO DAILY, #30 TAB Prov:NADEEM GUO 04/09/18 Allergies Allergies: Coded Allergies: No Known Allergy (Unverified , 08/29/18) PMhx/Soc History of Surgery: Yes (KIDNEY TRANSPLANT; HERNIA REPAIR; RIGHT SHOULDER TENDON SURGERY; HIP ) Anesthesia Reaction: No Hx Neurological Disorder: No Hx Respiratory Disorders: No Hx Cardiac Disorders: Yes (HTN) Hx Psychiatric Problems: No Hx Miscellaneous Medical Probl: Yes (KIDNEY TRANSPLANT) Hx Alcohol Use: No Hx Substance Use: No Hx Tobacco Use: No Smoking Status: Never smoker FmHx Family History: No diabetes Physical Exam Vitals Vital Signs Date Temp Pulse Resp B/P (MAP) Pulse Ox O2 O2 Flow FiO2 Time Delivery Rate 08/29/18 81 19 112/93 98 Room Air 20:30 (99) 08/29/18 98 20 112/92 98 Room Air 18:51 (99) 08/29/18 87 20 118/90 97 17:45 (99) 08/29/18 98.5 90 20 110/75 97 17:23 (87) Physical Exam General: Well developed, well nourished, no acute distress Head: Normocephalic, atraumatic. Eyes: Pupils equally reactive, EOM intact ENT: Moist mucous membranes Neck: Supple, no lymphadenopathy Respiratory: Lungs clear bilaterally, no distress Cardiovascular: RRR, no murmurs, rubs, or gallops Abdominal: Soft, non-tender, non-distended, no peritoneal signs : Deferred MSK: No edema, no unilateral swelling, 5/5 strength Neurologic: Alert and oriented, moving all extremities, normal speech, no focal weakness, no cerebellar signs Skin: No rash Psych: Normal mood Result Diagram: 08/29/18 1727 08/29/18 1727 Results 24 hrs Laboratory Tests Test 08/29/18 17:27 08/29/18 20:39 White Blood Count 8.2 10^3/ul Red Blood Count 4.56 10^6/ul Hemoglobin 13.6 g/dl Hematocrit 40.7 % Mean Corpuscular Volume 89.3 fl Mean Corpuscular Hemoglobin 29.8 pg Mean Corpuscular Hemoglobin Concent 33.4 g/dl Red Cell Distribution Width 12.7 % Platelet Count 276 10^3/UL Mean Platelet Volume 10.5 fl Immature Granulocytes % 0.900 % Neutrophils % 74.1 % Lymphocytes % 17.6 % Monocytes % 6.8 % Eosinophils % 0.2 % Basophils % 0.4 % Nucleated Red Blood Cells % 0.0 /100WBC Immature Granulocytes # 0.070 10^3/ul Neutrophils # 6.1 10^3/ul Lymphocytes # 1.5 10^3/ul Monocytes # 0.6 10^3/ul Eosinophils # 0.0 10^3/ul Basophils # 0.0 10^3/ul Nucleated Red Blood Cells # 0.0 10^3/ul Sodium Level 140 mmol/L Potassium Level 4.7 mmol/L Chloride Level 104 mmol/L Carbon Dioxide Level 22 mmol/L Anion Gap 14 Blood Urea Nitrogen 13 mg/dl Creatinine 1.05 mg/dl Est Glomerular Filtrat Rate mL/min > 60 mL/min Glucose Level 127 mg/dl Calcium Level 10.1 mg/dl Troponin I < 0.012 ng/ml < 0.012 ng/ml Current Medications Medications Dose Sig/Marcelino Start Time Status Last (Trade) Ordered Route PRN Stop Time Admin Dose Reason Admin 1 tab ONCE ONCE 08/29/18 DC 08/29/18 Acetaminophen PO 19:30 19:36 / 08/29/18 19:31 Hydrocodone Bitart ([place] ()) Procedures/MDM EKG, MONITORS, & DIAGNOSTIC IMAGING: EKG: I reviewed and interpreted a 12-lead EKG. Rhythm: Normal sinus rhythm ST Changes: No contiguous ST segment elevations T waves: No contiguous T wave inversions Impression: [No evidence of acute cardiac ischemia] Repeat EKG: EKG: I reviewed and interpreted a 12-lead EKG. Rhythm: Normal sinus rhythm ST Changes: No contiguous ST segment elevations T waves: No contiguous T wave inversions Impression: [No evidence of acute cardiac ischemia] Chest x-ray: I reviewed and interpreted a 1 view of the chest Mediastinum: No enlargement Cardiac silhouette: No cardiomegaly Airspace: Clear lung owen bilaterally without evidence of pneumothorax Bones: No evidence of fracture PROCEDURES: [None] LAB INTERPRETATION: * Neg trop x 2 MEDICAL DECISION MAKING: The patient's history, physical exam and clinical presentation is consistent with chronic chest pain. He exhibits no signs or symptoms concerning for dissection, pulmonary embolism. The patient has chronic chest pain that is unchanged. Reviewing the patient's EMR as well as speaking to his integrated specialist, Dr. Salmon this is a chronic issue for the patient. His last left heart cath was in September 2017 that showed nonobstructive coronary artery disease. The patient has significant frequency of visits for chest pain related issues with negative workups in the recent past. I do not believe this is consistent with acute coronary syndrome. Based on the patient's clinical exam and history and risk factors, I have a much lower clinical concern for pulmonary embolism, acute aortic dissection, pneumothorax, pneumonia, cardiac tamponade HEART Score: Less than 3 MACE Rate: Less than 1.7% Shared Decision Making: We had a conversation regarding risk stratification, MACE rate, and the risks, benefits, alternatives of disposition planning op tions. Disposition planning: Based on EMR review, discussion with his integrated specialist serial enzymes in the emergency room setting and outpatient follow-up would be appropriate. ER COURSE: * Troponin is negative x2. The patient continued to request IV narcotic pain medication. Oral [place] provided. * The patient's troponins are negative. EKG is nonischemic. The patient has had multiple recent evaluations with negative angiography within the past 12 months. The patient's integrated specialist agrees with repeat troponin and discharge. The serial troponins are negative. The patient can be safely discharged. I do not feel comfortable prescribing narcotic pain medication for this patient. CONSULTATION: [employer] Operator, Dr. Salmon via [employer] DISPOSITION PLAN: The patient does not have an identifiable emergent medical condition that warrants inpatient hospitalization at this time. The patient is deemed safe for discharge with outpatient follow-up. We discussed follow up with the patient's primary care doctor within 24 to 48 hours as needed. We also discussed return to the emergency room for worsening symptoms or worsening condition. Outpatient referral: Cardiology Discharge Medications: NOne Departure Diagnosis: Primary Impression: Chest pain Chest pain type: unspecified Qualified Codes: R07.9 - Chest pain, unspecified Additional Impressions: Chronic pain Chronic pain type: other chronic pain Qualified Codes: G89.29 - Other chronic pain Transplant recipient Condition: Stable DEVORAH URRUTIA MD Aug 29, 2018 17:53
[2018-08-29] MEDS ORDERED: HYDROCODONE/APAP (10/325) TAB PO ONE (19:30)
[2018-08-29 21:25] VITALS: BP 122/100; PULSE 81; RESP 18
== END 2018-08-29 21:56 | disposition home or self-care (01) ==
LOC: E/R 17:14
DX: R07.9 Chest pain, unspecified (principal); I10 Essential (primary) hypertension; G89.29 Other chronic pain; Z94.0 Kidney transplant status
CPT/HCPCS: 71045; 80048; 84484; 85025; 93005

== ENCOUNTER 2018-09-05 15:55 | Emergency (ER) | payer MEDICARE, OTHER ==
[~2018-09-05] VITALS: Ht 167.6 cm; Wt 74.8 kg
[2018-09-05 15:58] VITALS: Ht 167.6 cm; Wt 74.8 kg
[2018-09-05] MEDS ORDERED: ONDANSETRON (ODT) 4 MG TAB ODT STA (16:13)
[2018-09-05] MEDS ORDERED: HYDROCODONE/APAP (10/325) TAB PO ONE (16:30)
[2018-09-05] MEDS ORDERED: LORAZEPAM 1 MG TAB ONE (16:58)
[2018-09-05] MEDS ORDERED: LORAZEPAM 2 MG INJ IV ONE (17:00)
[2018-09-05 19:51] VITALS: BP 121/93; PULSE 79; RESP 20
[2018-09-05] MEDS ORDERED: ONDA4TAB14 PO (19:51)
--- NOTE | 2018-09-05 20:27 | ERD ---
ER Documentation Chief Complaint Chief Complaint cp x 15 with n/v HPI 42-year-old male who presents to the emergency room with chest pain. The patient describes chest pain that is constant. He has had chest pain for at least 2 months. He states it is worse to touch and worse with rotational movement. The patient has been seen here 3 times in August for similar symptoms. His last angiogram was within the last 12 months. He denies any fevers chills or cough. He has had several episodes of nonbloody nonbilious emesis. He went to his primary care physician's office who sent him to the emergency room. ROS All systems reviewed and are negative except as per history of present illness. Medications Home Meds Active Scripts Ondansetron (Ondansetron Odt) 4 Mg Tab.rapdis, 4 MG PO Q6H PRN for NAUSEA AND/OR VOMITING, #20 TAB Prov:DEVORAH URRUTIA MD 09/05/18 Reported Medications Ranolazine* (Ranexa*) 1,000 Mg Tab.sr.12h, 1000 MG PO Q12, TAB 08/27/18 Lisinopril* (Lisinopril*) 10 Mg Tablet, 10 MG PO DAILY, #30 TAB 08/27/18 Isosorbide Dinitrate* (Isosorbide Dinitrate*) 10 Mg Tablet, 10 MG PO TID, TAB 08/27/18 Carvedilol* (Carvedilol*) 6.25 Mg Tablet, 6.25 MG PO BID, #60 TAB 08/27/18 Atorvastatin Calcium (Atorvastatin Calcium) 10 Mg Tablet, 10 MG PO QHS, #30 TAB 08/27/18 Amlodipine Besylate* (Norvasc*) 5 Mg Tablet, 5 MG PO BID, TAB 08/27/18 Zolpidem Tartrate* (Zolpidem Tartrate*) 5 Mg Tablet, 5 MG PO QHS PRN for INSOMNIA, #30 TAB 08/27/18 Tamsulosin Hcl* (Tamsulosin Hcl*) 0.4 Mg Cap.er.24h, 0.4 MG PO HS, CAP 08/27/18 Sertraline Hcl* (Sertraline Hcl*) 100 Mg Tablet, 100 MG PO DAILY, #30 TAB 08/27/18 Prednisone* (Prednisone*) 5 Mg Tab, 5 MG PO DAILY, TAB 08/27/18 Meclizine Hcl* (Meclizine Hcl*) 25 Mg Tablet, 25 MG PO NEEDED PRN for DIZZINESS, TAB 08/27/18 Magnesium Oxide* (Magnesium Oxide*) 400 Mg Tablet, 800 MG PO BID, TAB 08/27/18 Gabapentin* (Gabapentin*) 100 Mg Capsule, 100 MG PO DAILY, #90 CAP 08/27/18 Cyclosporine* (Neoral*) 100 Mg Cap, 100 MG PO DAILY, CAP 08/27/18 Cyclosporine* (Neoral*) 25 Mg Cap, 125 MG PO QHS, CAP 08/27/18 Allergies Allergies: Coded Allergies: No Known Allergy (Unverified , 09/05/18) PMhx/Soc History of Surgery: Yes (KIDNEY TRANSPLANT; HERNIA REPAIR; RIGHT SHOULDER TENDON SURGERY; HIP ) Anesthesia Reaction: No Hx Neurological Disorder: No Hx Respiratory Disorders: No Hx Cardiac Disorders: Yes (HTN) Hx Psychiatric Problems: No Hx Miscellaneous Medical Probl: Yes (KIDNEY TRANSPLANT) Hx Alcohol Use: No Hx Substance Use: No Hx Tobacco Use: No Smoking Status: Never smoker FmHx Family History: No diabetes Physical Exam Vitals Vital Signs Date Temp Pulse Resp B/P (MAP) Pulse Ox O2 O2 Flow FiO2 Time Delivery Rate 09/05/18 98.0 79 20 121/93 98 Room Air 19:51 (102) 09/05/18 85 23 113/92 98 Room Air 18:30 (99) 09/05/18 83 18 116/97 99 Room Air 18:00 (103) 09/05/18 97.1 80 18 128/85 99 15:58 (99) Physical Exam General: Well developed, well nourished, no acute distress Head: Normocephalic, atraumatic. Eyes: Pupils equally reactive, EOM intact ENT: Moist mucous membranes Neck: Supple, no lymphadenopathy Respiratory: Lungs clear bilaterally, no distress, reproducible anterior chest wall tenderness Cardiovascular: RRR, no murmurs, rubs, or gallops Abdominal: Soft, non-tender, non-distended, no peritoneal signs : Deferred MSK: No edema, no unilateral swelling, 5/5 strength Neurologic: Alert and oriented, moving all extremities, normal speech, no focal weakness, no cerebellar signs Skin: No rash Psych: Normal mood Result Diagram: 09/05/18 1616 09/05/18 1616 Results 24 hrs Laboratory Tests Test 09/05/18 16:16 09/05/18 18:50 White Blood Count 10.4 10^3/ul Red Blood Count 4.73 10^6/ul Hemoglobin 14.1 g/dl Hematocrit 41.5 % Mean Corpuscular Volume 87.7 fl Mean Corpuscular Hemoglobin 29.8 pg Mean Corpuscular Hemoglobin Concent 34.0 g/dl Red Cell Distribution Width 12.7 % Platelet Count 296 10^3/UL Mean Platelet Volume 10.7 fl Immature Granulocytes % 0.700 % Neutrophils % 79.8 % Lymphocytes % 14.2 % Monocytes % 5.0 % Eosinophils % 0.1 % Basophils % 0.2 % Nucleated Red Blood Cells % 0.0 /100WBC Immature Granulocytes # 0.070 10^3/ul Neutrophils # 8.3 10^3/ul Lymphocytes # 1.5 10^3/ul Monocytes # 0.5 10^3/ul Eosinophils # 0.0 10^3/ul Basophils # 0.0 10^3/ul Nucleated Red Blood Cells # 0.0 10^3/ul Sodium Level 140 mmol/L Potassium Level 4.1 mmol/L Chloride Level 104 mmol/L Carbon Dioxide Level 24 mmol/L Anion Gap 12 Blood Urea Nitrogen 16 mg/dl Creatinine 1.31 mg/dl Est Glomerular Filtrat Rate mL/min > 60 mL/min Glucose Level 118 mg/dl Calcium Level 10.5 mg/dl Troponin I < 0.012 ng/ml < 0.012 ng/ml Current Medications Medications Dose Sig/Marcelino Start Time Status Last (Trade) Ordered Route PRN Stop Time Admin Dose Reason Admin 1 tab ONCE ONCE 09/05/18 DC 09/05/18 Acetaminophen PO 16:30 09/05/18 16:20 / 16:31 Hydrocodone Bitart ([place] ([id number])) Ondansetron 4 mg ONCE STAT 09/05/18 DC 09/05/18 HCl (Zofran ODT 16:13 09/05/18 16:20 Odt) 16:14 Lorazepam 1 mg ONCE ONCE 09/05/18 DC 09/05/18 (Ativan) IV 17:00 09/05/18 17:16 17:01 Lorazepam 1 mg STK-MED 09/05/18 DC (Ativan) ONCE .ROUTE 16:58 2/1/19 16:59 Procedures/MDM EKG, MONITORS, & DIAGNOSTIC IMAGING: EKG: I reviewed and interpreted a 12-lead EKG. Rhythm: Normal sinus rhythm ST Changes: No contiguous ST segment elevations T waves: No contiguous T wave inversions Impression: No evidence of acute cardiac ischemia Repeat EKG: EKG: I reviewed and interpreted a 12-lead EKG. Rhythm: Normal sinus rhythm ST Changes: No contiguous ST segment elevations T waves: No contiguous T wave inversions Impression: No evidence of acute cardiac ischemia Chest x-ray: I reviewed and interpreted a 1 view of the chest Mediastinum: No enlargement Cardiac silhouette: No cardiomegaly Airspace: Clear lung owen bilaterally without evidence of pneumothorax Bones: No evidence of fracture PROCEDURES: None LAB INTERPRETATION: Negative troponin x2 MEDICAL DECISION MAKING: The patient's history, physical exam and clinical presentation is consistent with the patient's chronic pain. The patient has been evaluated 3 times in August for similar symptoms. The patient has had serial enzymes that have been normal each time. The patient had a negative angiogram less than 12 months ago. I spoke to Dr. Reyes who referred the patient to the emergency room who states that they did not evaluate the patient he was just complaining of chest pain and they sent him directly to the emergency room. Dr. Salmon is the patient's nurse examiner I discussed the case with him and he feels that outpatient management is appropriate. He has follow-up in November in his office and has a negative angiogram within the 12 months. No indication for hospitalization. Serial enzymes and discharge would be appropriate. Shared Decision Making: We had a conversation regarding risk stratification, MACE rate, and the risks, benefits, alternatives of disposition planning op tions. Disposition planning: Repeat troponin and discharge ER COURSE: * repeat troponin is negative. Patient given oral medication. No indication for IV or IM narcotics. * There is some element of concern for drug-seeking behavior. * Patient advised to follow-up with his primary care physician and nurse examiner as planned CONSULTATION: None DISPOSITION PLAN: The patient does not have an identifiable emergent medical condition that warrants inpatient hospitalization at this time. The patient is deemed safe for discharge with outpatient follow-up. We discussed follow up with the patient's primary care doctor within 24 to 48 hours as needed. We also discussed return to the emergency room for worsening symptoms or worsening condition. Outpatient referral: None required Discharge Medications: Zofran Departure Diagnosis: Primary Impression: Chronic pain Chronic pain type: other chronic pain Qualified Codes: G89.29 - Other chronic pain Additional Impression: Chest pain Chest pain type: unspecified Qualified Codes: R07.9 - Chest pain, unspecified Condition: Stable Patient Instructions: Chest Pain, Uncertain Cause Additional Instructions: Follow with your nurse examiner on 11/21 as planned DEVORAH URRUTIA MD Sep 05, 2018 20:27
== END 2018-09-05 19:53 | disposition home or self-care (01) ==
LOC: E/R 15:55
DX: G89.29 Other chronic pain (principal); I10 Essential (primary) hypertension
CPT/HCPCS: 36415; 71045; 80048; 84484; 85025; 93005; 96372; 99285; J2060

== ENCOUNTER 2018-12-31 16:37 | Emergency (ER) | payer MEDICARE, OTHER ==
[~2018-12-31] VITALS: Ht 167.6 cm; Wt 77.7 kg
[~2018-12-31 16:37] MED LIST changes: +ONDA4TAB14 PO
[2018-12-31 16:39] VITALS: Ht 167.6 cm; Wt 77.7 kg
--- NOTE | 2018-12-31 17:11 | ERD ---
ER Documentation Chief Complaint Chief Complaint chest pain HPI This is a 43-year-old male with a past medical history of renal transplant, hypertension, hyperlipidemia, CHF, chronic angina for which he has been evaluated and admitted to different facilities with recent negative cardiac work-ups, last cardiac catheterization in September 2017 that did not reveal any coronary artery disease, now presenting with approximately 1 week of waxing and waning aching sore moderate left-sided chest pain radiating to the left shoulder and neck. He has not been short of breath. He does not endorse palpitations. He does not endorse paresthesias. He does not endorse lightheadedness or dizziness. He does not endorse any diaphoresis. He has not had any nausea or vomiting. He does not endorse any trauma or injury. It is not related to exertion. He reports that the pain is been constant over the last week. He does not endorse any alleviating or exacerbating factors. The patient denies feeling sick recently. The patient denies fever or chills. The patient has had no headache or vision changes. The patient does not endorse neck or back pain. The patient denies abdominal pain. The patient denies changes to bowel movements or urination. The patient has had no focal deficits. The patient has had no weakness or numbness or tingling to the face or extremities. ROS All systems reviewed and are negative except as per history of present illness. Medications Home Meds Active Scripts Ondansetron (Ondansetron Odt) 4 Mg Tab.rapdis, 4 MG PO Q6H PRN for NAUSEA AND/OR VOMITING, #20 TAB Prov:DEVORAH URRUTIA MD 09/05/18 Reported Medications Famotidine* (Famotidine*) 10 Mg Tablet, 10 MG PO BID, #60 TAB 12/31/18 Carvedilol* (Carvedilol*) 25 Mg Tablet, 25 MG PO BID, #60 TAB 12/31/18 Ranolazine* (Ranexa*) 1,000 Mg Tab.sr.12h, 1000 MG PO Q12, TAB 08/27/18 Lisinopril* (Lisinopril*) 10 Mg Tablet, 10 MG PO DAILY, #30 TAB 08/27/18 Isosorbide Dinitrate* (Isosorbide Dinitrate*) 10 Mg Tablet, 10 MG PO TID, TAB 08/27/18 Atorvastatin Calcium (Atorvastatin Calcium) 10 Mg Tablet, 10 MG PO QHS, #30 TAB 08/27/18 Amlodipine Besylate* (Norvasc*) 5 Mg Tablet, 5 MG PO BID, TAB 08/27/18 Zolpidem Tartrate* (Zolpidem Tartrate*) 5 Mg Tablet, 5 MG PO QHS PRN for INSOMNIA, #30 TAB 08/27/18 Tamsulosin Hcl* (Tamsulosin Hcl*) 0.4 Mg Cap.er.24h, 0.4 MG PO HS, CAP 08/27/18 Sertraline Hcl* (Sertraline Hcl*) 100 Mg Tablet, 100 MG PO DAILY, #30 TAB 08/27/18 Prednisone* (Prednisone*) 5 Mg Tab, 5 MG PO DAILY, TAB 08/27/18 Meclizine Hcl* (Meclizine Hcl*) 25 Mg Tablet, 25 MG PO NEEDED PRN for DIZZINESS, TAB 08/27/18 Magnesium Oxide* (Magnesium Oxide*) 400 Mg Tablet, 800 MG PO BID, TAB 08/27/18 Gabapentin* (Gabapentin*) 100 Mg Capsule, 100 MG PO DAILY, #90 CAP 08/27/18 Cyclosporine* (Neoral*) 100 Mg Cap, 100 MG PO DAILY, CAP 08/27/18 Cyclosporine* (Neoral*) 25 Mg Cap, 125 MG PO QHS, CAP 08/27/18 Discontinued Reported Medications Carvedilol* (Carvedilol*) 6.25 Mg Tablet, 6.25 MG PO BID, #60 TAB 08/27/18 Allergies Allergies: Coded Allergies: No Known Allergy (Unverified , 12/31/18) PMhx/Soc History of Surgery: Yes (KIDNEY TRANSPLANT; HERNIA REPAIR; RIGHT SHOULDER TENDON SURGERY; HIP ) Anesthesia Reaction: No Hx Neurological Disorder: No Hx Respiratory Disorders: No Hx Cardiac Disorders: Yes (Hypertension, hyperlipidemia, CHF) Hx Psychiatric Problems: No Hx Miscellaneous Medical Probl: Yes (KIDNEY TRANSPLANT) Hx Alcohol Use: No Hx Substance Use: No Hx Tobacco Use: No Smoking Status: Never smoker FmHx Family History: No diabetes Physical Exam Vitals Vital Signs Date Temp Pulse Resp B/P (MAP) Pulse Ox O2 O2 Flow FiO2 Time Delivery Rate 12/31/18 Nasal 17:04 Cannula 12/31/18 98.0 103 18 103/79 98 Room Air 17:04 (87) 12/31/18 98.0 95 18 113/69 96 16:39 (84) Physical Exam Const: No apparent distress, well-developed, well-nourished Head: Normocephalic, Atraumatic Eyes: Normal Conjunctiva. Extraocular movements grossly intact. ENT: Normal External Ears, Nose and Mouth. Neck: Full range of motion. No meningismus. Resp: Clear to auscultation bilaterally, No wheezes, rales or rhonchi Cardio: Regular rate and rhythm. No murmurs, rubs or gallops Abd: Soft, non tender, non distended. Normal bowel sounds Skin: No petechiae or rashes Back: No midline tenderness. No CVA tenderness Ext: No cyanosis, or edema Neur: Awake and alert, oriented 4. Cranial nerves intact. No facial droop. Normal strength, sensation and coordination. Psych: Normal Mood and Affect Result Diagram: 12/31/18 1713 12/31/18 1713 Results 24 hrs Laboratory Tests Test 12/31/18 17:13 White Blood Count 9.6 10^3/ul Red Blood Count 4.08 10^6/ul Hemoglobin 12.2 g/dl Hematocrit 36.4 % Mean Corpuscular Volume 89.2 fl Mean Corpuscular Hemoglobin 29.9 pg Mean Corpuscular Hemoglobin Concent 33.5 g/dl Red Cell Distribution Width 12.4 % Platelet Count 274 10^3/UL Mean Platelet Volume 10.4 fl Immature Granulocytes % 1.500 % Neutrophils % 73.8 % Lymphocytes % 15.5 % Monocytes % 8.6 % Eosinophils % 0.3 % Basophils % 0.3 % Nucleated Red Blood Cells % 0.0 /100WBC Immature Granulocytes # 0.140 10^3/ul Neutrophils # 7.1 10^3/ul Lymphocytes # 1.5 10^3/ul Monocytes # 0.8 10^3/ul Eosinophils # 0.0 10^3/ul Basophils # 0.0 10^3/ul Nucleated Red Blood Cells # 0.0 10^3/ul Sodium Level 134 mmol/L Potassium Level 4.9 mmol/L Chloride Level 101 mmol/L Carbon Dioxide Level 24 mmol/L Anion Gap 9 Blood Urea Nitrogen 19 mg/dl Creatinine 1.77 mg/dl Est Glomerular Filtrat Rate mL/min 42 mL/min Glucose Level 113 mg/dl Calcium Level 9.2 mg/dl Troponin I < 0.012 ng/ml Procedures/MDM MDM The patient's presentation warrants further investigation. Previous medical records, if available, were reviewed. LABS The patient's laboratory testing was obtained and reviewed. No emergent treatment was required unless described below. CBC: No E/o systemic infection or thrombocytopenia. Mild normocytic anemia, not emergent. Chemistry: No E/o severe acidosis or alkalosis or diabetic ketoacidosis. Mildly elevated creatinine. Troponin: No E/o acute ischemia BNP: No E/o heart failure EKG EKG read by me: Rate/Rhythm: Regular rate and rhythm at a rate of 80 bpm Intervals: Normal [place]: Normal Impression: No evidence of acute ischemia or arrhythmia IMAGING Imaging and Radiology interpretation reviewed. CXR FINDINGS: The heart is normal in size. The pulmonary vessels are normal in caliber. The lungs are clear. There is persistent blunting of the right costophrenic angle which may represent pleural thickening versus trace pleural effusion. Left costophrenic angle sharp. Bony thorax is unremarkable. IMPRESSION: No acute cardiopulmonary disease. Persistent thickening and blunting of the right costophrenic angle Electronically viewed and signed by .Alexander Pollock MD, on 12/31/2018 17:28 TREATMENT/DISPOSITION The patient presents for long-standing chronic exacerbated chest pain. On review of the medical record, the patient presents frequently for symptoms of chest pain. A full work-up was completed. The patient's chest xray does not reveal pneumonia or pneumothorax or pleural effusions or pulmonary edema. The patient does not have a widened mediastinum and does not have signs or symptoms concerning for thoracic aortic aneurysm or dissection. The patient does not have pneumomediastinum or signs concerning for esophageal tear or rupture. The pa vinod has no clinical or radiographic signs of pericardial effusion or tamponade. The patient does not have pneumoperitoneum and I have decreased suspicion of viscus perforation as possible referred pain. The patient does not have a history of heart failure and I have low suspicion for this. The patient does not have a diagnosis of COPD and is not wheezing today. The patient is not tachypneic or hypoxic. The patient is breathing comfortably and without pleuritic pain. The patient is not on hormonal therapy. The patient has no history of clotting or bleeding disorders. The patient has no calf tenderness. The patient has had no hemoptysis. I have decreased suspicion for PE. The patient's troponin and EKG are reassuring. I have low suspicion for acute coronary syndrome. The patient's HEART score is equal to or less than 3. This stratifies the patient into the low risk (<1%) group for an major adverse cardiac event within the next 30 days. Shared decision making was enacted. The risks and benefits of admission and discharge were discussed with the patient and it was ultimately decided that the patient would be discharged with close outpatient follow up and evaluation for functional testing within 72 hours. I discussed the patient's case with his business services specialist sales, Dr. Salmon, who knows the patient very well. He was reassured by the work-up. He has very low suspicion for coronary artery disease as well. There may be some microvascular endothelial dysfunction and disease that may be further assessed in an outpatient setting. Dr. Salmon would like to see the patient in the office. The patient does have very mild acute kidney injury. The patient was given fluid resuscitation in the emergency department. The patient does have a history of renal transplant. I do not suspect rejection in this patient. He is still urinating well. His symptoms are not consistent with a urinary tract infection. The patient is to continue taking his medications as prescribed. He needs to follow-up with his graphics coordinator. DISCHARGE Upon reevaluation of the patient, symptoms have improved. No emergent diagnoses were identified. At this time, I feel that the patient stable for discharge. The patient was instructed to follow-up with a primary care physician in 1-3 days. The patient will be given strict precautions with which to return to the emergency department. Prescriptions: None Disclaimer: Inadvertent spelling and grammatical errors are likely due to EHR/di ctation software use and do not reflect on the overall quality of patient care. Note that the electronic time recorded on this note does not necessarily reflect the actual time of the patient encounter. Departure Diagnosis: Primary Impression: Nonspecific chest pain Additional Impressions: Normocytic anemia Acute kidney injury History of renal transplant Condition: Stable Patient Instructions: Anemia, Chest Pain, Uncertain Cause, Kidney Transplant Additional Instructions: Thank you for for coming to [facility] for your care today. Please ask your nurse or provider if you have questions about your care today and do not leave until all your questions have been answered. Please use any medications given as directed and follow-up with your doctor (or the doctor you were referred to) in the next 1-3 days. If you do not have a primary care doctor you may follow up at the [facility] or [facility] clinic (listed below). You may also use motrin and tylenol as needed for fever and/or pain unless instructed otherwise by your provider or nurse. Indications for more urgent follow-up have been discussed, but you may return to the Emergency Department at ANY time for any worrisome or worsening symptoms. If you have abdominal pain, please know that no test or exam you received is perfect and you should follow up within 8 hours for continued pain. If you had any imaging studies today, such as an X-Ray or CT Scan, these studies will be reviewed later by a radiologist. You will be called if there are important findings that were not identified today, so make sure the contact information you provided at registration is correct. If you received any narcotic pain control medicine today, such as Vicodin, Morphine or Dilaudid, your coordination and judgment may be affected for a number of hours. Please do not drive or operate heavy machinery, and you may want someone to assist you at home. If you were given a prescription for narcotic medication, be aware that it is very addictive- use sparingly and only if necessary. PLEASE SEEK FURTHER EVALUATION AND MANAGEMENT AT YOUR DOCTORS OFFICE WITHIN THE NEXT 1-3 DAYS. IT IS YOUR RESPONSIBILITY TO MAKE AN APPOINTMENT FOR FOLOW-UP CARE. IF YOU HAVE A PRIMARY DOCTOR, PLEASE CALL THEIR OFFICE TO SCHEDULE AN APPOINTMENT FOR FOLLOW UP. IF YOU DO NOT HAVE A PRIMARY DOCTOR YOU CAN CALL OUR PHYSICIAN REFERRAL HOTLINE AT IF YOU CAN NOT AFFORD TO SEE A PHYSICIAN YOU CAN CHOSE FROM THE FOLLOWING [facility] CLINICS: [facility] [address] [facility] [address] [facility]. [facility] [address] [facility] [address] [facility] [address] [facility]. [facility]. [address] JAVIER VALENTINO MD December 31, 2018 17:11
[2018-12-31] MEDS ORDERED: CARV25TA79 PO (17:48)
[2018-12-31] MEDS ORDERED: FAMO10TA84 PO (17:48)
[2018-12-31] MEDS ORDERED: KETOROLAC 15 MG INJ IV STA (19:24)
[2018-12-31] MEDS ORDERED: SOD CHLORIDE 0.9% 500 ML IV ONE (19:30)
[2018-12-31 20:40] VITALS: BP 118/96; PULSE 73; RESP 18
== END 2018-12-31 20:41 | disposition home or self-care (01) ==
LOC: E/R 16:37
DX: R07.9 Chest pain, unspecified (principal); I11.0 Hypertensive heart disease with heart failure; I50.9 Heart failure, unspecified; D64.9 Anemia, unspecified; N17.9 Acute kidney failure, unspecified; Z94.0 Kidney transplant status
CPT/HCPCS: 36415; 71045; 80048; 84484; 85025; 93005; 96374; 99285; J1885; J7040

== ENCOUNTER 2019-02-27 09:20 | Emergency (ER) | payer MEDICARE, OTHER ==
[~2019-02-27] VITALS: Ht 167.6 cm; Wt 75.5 kg
[~2019-02-27 09:20] MED LIST changes: +CARV25TA79 PO; -CARV6.2579 PO; +FAMO10TA84 PO
[2019-02-27 09:27] VITALS: Ht 167.6 cm; Wt 75.5 kg
--- NOTE | 2019-02-27 10:07 | ERD ---
ER Documentation Chief Complaint Chief Complaint c/o RLQ abd pain x1 week with chills. Hx: Rt. kidney trans 2010 HPI This is a 43-year-old man with a history of renal transplant complaining of right upper quadrant abdominal pain. He was sent by his PMD for complaints of right lower quadrant abdominal pain but on my exam he points to the right upper quadrant. Patient has a long history of chronic pain syndrome, opioid dependence, drug-seeking behavior, and chronic recurrent abdominal pain and has had [address] scans just from this emergency department. He denies fevers or chills, no hematuria, no chest pain or shortness of breath. Pain is nonradiating nonexertional. ROS All systems reviewed and are negative except as per history of present illness. Medications Home Meds Active Scripts Naproxen* (Naprosyn*) 500 Mg Tablet, 500 MG PO BID PRN for PAIN AND/OR INF LAMMATION, #30 TAB Prov:JHONATAN MONTERO MD 02/27/19 Ondansetron (Ondansetron Odt) 4 Mg Tab.rapdis, 4 MG PO Q6H PRN for NAUSEA AND/OR VOMITING, #20 TAB Prov:DEVORAH URRUTIA MD 09/05/18 Reported Medications Famotidine* (Famotidine*) 10 Mg Tablet, 10 MG PO BID, #60 TAB 12/31/18 Carvedilol* (Carvedilol*) 25 Mg Tablet, 25 MG PO BID, #60 TAB 12/31/18 Ranolazine* (Ranexa*) 1,000 Mg Tab.sr.12h, 1000 MG PO Q12, TAB 08/27/18 Lisinopril* (Lisinopril*) 10 Mg Tablet, 10 MG PO DAILY, #30 TAB 08/27/18 Isosorbide Dinitrate* (Isosorbide Dinitrate*) 10 Mg Tablet, 10 MG PO TID, TAB 08/27/18 Atorvastatin Calcium (Atorvastatin Calcium) 10 Mg Tablet, 10 MG PO QHS, #30 TAB 08/27/18 Amlodipine Besylate* (Norvasc*) 5 Mg Tablet, 5 MG PO BID, TAB 08/27/18 Zolpidem Tartrate* (Zolpidem Tartrate*) 5 Mg Tablet, 5 MG PO QHS PRN for INSOMNIA, #30 TAB 08/27/18 Tamsulosin Hcl* (Tamsulosin Hcl*) 0.4 Mg Cap.er.24h, 0.4 MG PO HS, CAP 08/27/18 Sertraline Hcl* (Sertraline Hcl*) 100 Mg Tablet, 100 MG PO DAILY, #30 TAB 08/27/18 Prednisone* (Prednisone*) 5 Mg Tab, 5 MG PO DAILY, TAB 08/27/18 Meclizine Hcl* (Meclizine Hcl*) 25 Mg Tablet, 25 MG PO NEEDED PRN for DIZZINESS, TAB 08/27/18 Magnesium Oxide* (Magnesium Oxide*) 400 Mg Tablet, 800 MG PO BID, TAB 08/27/18 Gabapentin* (Gabapentin*) 100 Mg Capsule, 100 MG PO DAILY, #90 CAP 08/27/18 Cyclosporine* (Neoral*) 100 Mg Cap, 100 MG PO DAILY, CAP 08/27/18 Cyclosporine* (Neoral*) 25 Mg Cap, 125 MG PO QHS, CAP 08/27/18 Allergies Allergies: Coded Allergies: No Known Allergy (Unverified , 12/31/18) PMhx/Soc renal transplant, hypertension, hyperlipidemia, CHF, chronic angina, chronic pain syndrome, opioid dependence History of Surgery: Yes (KIDNEY TRANSPLANT; HERNIA REPAIR; RIGHT SHOULDER TENDON SURGERY; HIP ) Anesthesia Reaction: No Hx Neurological Disorder: No Hx Respiratory Disorders: No Hx Cardiac Disorders: Yes (Hypertension, hyperlipidemia, CHF) Hx Psychiatric Problems: No Hx Miscellaneous Medical Probl: Yes (KIDNEY TRANSPLANT) Hx Alcohol Use: No Hx Substance Use: No Hx Tobacco Use: No Physical Exam Vitals Vital Signs Date Temp Pulse Resp B/P (MAP) Pulse Ox O2 O2 Flow FiO2 Time Delivery Rate 02/27/19 98.3 57 18 136/103 97 Room Air 11:30 (114) 02/27/19 98.7 69 20 144/99 99 09:27 (114) Physical Exam GENERAL: Well-developed, well-nourished, well-hydrated, in no apparent distress, looks nontoxic in appearance CARDIAC: Regular rate and rhythm, no murmurs rubs or gallops LUNGS: Clear bilaterally no wheezing crackles or stridor ABDOMEN: Soft nontender, no guarding, no rigidity, no rebound, no psoas sign no obturator sign. Normoactive bowel sounds SKIN: Warm and dry to touch, no abrasions, contusions, or hematomas, no lacerations, no ecchymosis, no target lesions, and without ulcers EXTREMITIES: No clubbing cyanosis or edema, calves are bilaterally symmetrical, no Homans sign, no popliteal cord sign. Distal pulses equal and bilateral PSYCH: Normal affect without agitation or irritability Result Diagram: 02/27/19 1052 Results 24 hrs Laboratory Tests Test 02/27/19 10:52 Sodium Level 142 mmol/L Potassium Level 4.1 mmol/L Chloride Level 107 mmol/L Carbon Dioxide Level 25 mmol/L Anion Gap 10 Blood Urea Nitrogen 11 mg/dl Creatinine 0.89 mg/dl Est Glomerular Filtrat Rate mL/min > 60 mL/min Glucose Level 95 mg/dl Calcium Level 9.9 mg/dl Current Medications Medications Dose Sig/Marcelino Start Time Status Last (Trade) Ordered Route PRN Stop Time Admin Dose Reason Admin Oxycodone/ 1 tab ONCE ONCE 02/27/19 DC 02/27/19 Acetaminophen PO 10:30 10:13 (Percocet 02/27/19 10:31 (5/ 325)) Procedures/MDM Ultrasound of the right upper quadrant was performed there was no cholecystitis noted. Please refer to radiologist dictation for full report. BMP was normal. I spoke to the physician who sent the patient I spoke to the physician who sent the patient regarding ultrasound and lab findings as well as the multiple prior imaging studies he has received. She agreed to discharge and continued outpatient management. While here for complaints of pain I administered Percocet 1 tablet p.o. Differential diagnoses considered, included but not limited to acute coronary sy ndrome, pulmonary embolism, aortic dissection, abdominal aortic aneurysm, sepsis, stroke, meningitis, encephalitis, pneumonia, appendicitis, cholecystitis, bowel obstruction, pyelonephritis, nephrolithiasis, cystitis, as well as metabolic, hematologic, and electrolyte abnormalities. As well as absce ss, cellulitis, fractures, and dislocations. Patient feels much better at this time, and vital signs are normal, symptoms have improved. I did give strict instructions to return to the ED if symptoms continue or worsen, patient will otherwise follow-up with primary care physician. Patient understood instructions and agreed to plan. Disclaimer: Inadvertent spelling and grammatical errors are likely due to EHR/dictation software use and do not reflect on the overall quality of patient care. Also, please note that the electronic time recorded on this note does not necessarily reflect the actual time of the patient encounter. Departure Diagnosis: Primary Impression: Chronic pain Chronic pain type: chronic pain syndrome Qualified Codes: G89.4 - Chronic pain syndrome Condition: JHONATAN Oneill MD Feb 27, 2019 10:07
[2019-02-27] MEDS ORDERED: OXYCODONE/ACETAMINOPHEN (5/325) TAB PO ONE (10:30)
[2019-02-27] MEDS ORDERED: NAPR-985 PO (11:15)
[2019-02-27 11:30] VITALS: BP 136/103; PULSE 57; RESP 18
== END 2019-02-27 11:35 | disposition home or self-care (01) ==
LOC: E/R 09:20
DX: G89.4 Chronic pain syndrome (principal); I11.0 Hypertensive heart disease with heart failure; I50.9 Heart failure, unspecified; Z94.0 Kidney transplant status
CPT/HCPCS: 76705; 80048